=== PATIENT | female | born 1945 | race Caucasian/White ===

== ENCOUNTER 2021-06-30 18:20 | Emergency (ER) | payer MEDICARE ==
[2021-06-30] MEDS ORDERED: NA CHLORIDE 0.9% 500 ML ONE (19:35)
[2021-06-30 19:50] LABS: Urine Bacteria <20 /HPF (<20); Urine Mucus 1+ /HPF (NONE SEEN); Urine RBC <5 /HPF (NONE SEEN)
--- NOTE | 2021-06-30 19:54 | RAD REPORT ---
EXAM DESCRIPTION: Ayaan Single View06/30/2021 7:02 pm CLINICAL HISTORY: Confusion COMPARISON: 2013 FINDINGS: Medial right lung base hazy The remainder of the lungs appear clear. Heart is normal size IMPRESSION: Medial right base is hazy probably combination of epicardial fat and elevation right he midiaphragm. If patient has clinical symptoms to suggest an infiltrate then PA and lateral chest seri es would be recommended
--- NOTE | 2021-06-30 19:54 | RAD REPORT ---
EXAM DESCRIPTION: CT - Head C Spine Mpr Wo Con - 06/30/2021 7:33 pm CLINICAL HISTORY: Head and neck injury status post fall. Syncope COMPARISON: None. TECHNIQUE: Computed axial tomography of the head and cervical spine was obtained. Sagittal and coronal reconstruction was performed. All CT scans are performed using dose optimization technique as appropriate and may include automated exposure control or mA/KV adjustment according to patient size. FINDINGS: A 3 millimeter area of increased density abuts the right aspect of the anterior falx. The ventricles are normal in caliber. Fluid within the visualized sinuses and mastoids is not seen A cervical fracture is not visualized. No dislocation is noted. IMPRESSION: 3 millimeter area of increased density abutting the right aspect of the anterior falx hogan spicious for a very small subdural bleed. A cervical fracture is not visualized. Dr Maria of the emergency room notified at 7:47 p.m. on June 30, 2021
[2021-06-30 20:46] LABS: Absolute Lymphocytes (CBC) 1.6 K/uL (0.7-4.9); Hematocrit 40.9 % (36.0-45.0); Lymphocytes % 18.3 % (15.3-44.8); MPV 8.2 fL (7.6-11.3); RBC Red Blood Cell Count 4.38 M/uL (3.86-4.86)
[2021-06-30 21:09] LABS: ALT/SGPT 32 U/L (12-78); Albumin 4.2 g/dL (3.4-5.0); Alkaline Phosphatase 90 U/L (45-117); BUN Blood Urea Nitrogen 13 mg/dL (7-18); Bicarbonate 27 mmol/L (21-32); Bilirubin Total 0.4 mg/dL (0.2-1.0); Glucose Level 165 mg/dL (74-106); Protein, Total 7.6 g/dL (6.4-8.2); Sodium Level 136 mmol/L (136-145)
[2021-06-30 21:14] LABS: AST/SGOT 27 U/L (15-37); Bilirubin Direct < 0.1 mg/dL (0-0.2); Potassium 4.4 mmol/L (3.5-5.1)
[2021-06-30 21:27] LABS: SARS-COV-2 RT PCR NEGATIVE (NEGATIVE)
--- NOTE | 2021-06-30 22:01 | ER ---
Nurse's Notes [facility] Name: Evelin Rojas Age: 75 yrs Sex: Female : 1945 Arrival Date: 06/30/2021 Time: 18:25 Bed 2 Private MD: Diagnosis: Traumatic subdural hemorrhage with loss of consciousness of unspecified duration Presentation: 06/30 18:35 Chief complaint: EMS states: EMS states that family called after pt had syncope episode jh6 that was not witnessed. EMS states BS 176 en route and pt asking repetitive questions. Coronavirus screen: Client denies travel out of the [place] in the last 14 days. Ebola Screen: Patient denies exposure to infectious person. Patient denies travel to an Ebola-affected area in the 21 days before illness onset. Initial Sepsis Screen: Does the patient meet any 2 criteria? No. Patient's initial sepsis screen is negative. Does the patient have a suspected source of infection? No. Patient's initial sepsis screen is negative. Risk Assessment: Do you want to hurt yourself or someone else? Patient reports no desire to harm self or others. Onset of symptoms was June 30, 2021. 18:35 Method Of Arrival: EMS: [facility] 18:35 Acuity: NHI 2 6 Historical: - PMHx: 18:39 Diabetes mellitus; [facility] - Immunization history:: Adult Immunizations up to date. - Social history:: Smoking status: Patient reports the use of cigarette tobacco products. Screenin:43 Abuse screen: Denies threats or abuse. Nutritional screening: No deficits noted. [facility] Tuberculosis screening: No symptoms or risk factors identified. Fall Risk No secondary diagnosis (0 pts). IV access (20 points). Assessment: 18:40 General: Appears in no apparent distress. Behavior is calm, cooperative, repetitive [facility] questions, pt doesn't remember passing out or falling. pt having pain to rt rib area. no busing noted. . Pain: Complains of pain in right lateral posterior chest Pain currently is 5 out of 10 on a pain scale. Quality of pain is described as sharp, tender, Pain began suddenly, Is continuous, Aggravated by increased activity. Neuro: Level of Consciousness is awake, alert, repetitive questions. Full function Speech is normal, Facial symmetry appears normal, Pupils are PERRLA, Pupil Size: 3 Intact. 19:16 General: pt taken to CT. as6 Vital Signs: 18:35 BP 196 / 88; Pulse 83; Resp 20; Temp 98.4(O); Pulse Ox 97% on R/A; Weight 81.65 kg; jh6 Height 5 ft. 6 in. (167.64 cm); Pain 3/10; 20:29 BP 182 / 73; Pulse 88; Resp 18; Pulse Ox 100% on R/A; Pain 10/10; tw5 18:35 Body Mass Index 29.05 (81.65 kg, 167.64 cm) 6 ED Course: 18:25 Patient arrived in ED. 6 18:39 Triage completed. jh6 18:40 Arm band placed on Patient placed in an exam room, on a stretcher, on oxygen, on [facility] booster assembler, on pulse oximetry. 18:42 Jacob Rose MD is Attending Physician. [facility] 18:54 EKG done, by ED staff, reviewed by Jacob Rose MD. jh6 19:02 XRAY Chest (1 view) In Process Unspecified. EDMS 19:06 Attending Physician role handed off by Jacob Rose MD rn 19:06 Rinku Maria MD is Attending Physician. rn 19:13 Carlos Washington, JABARI is Primary Nurse. as6 19:33 CT Head C Spine In Process Unspecified. EDMS 20:26 Urine Culture Sent. tw5 20:27 Patient has correct armband on for positive identification. Placed in gown. Bed in low tw5 position. Call light in reach. Side rails up X2. Adult w/ patient. surgical clinical reviewer on. Pulse ox on. NIBP on. Door closed. Noise minimized. Moved to private room. Warm blanket given. Verbal reassurance given. Assisted with bedpan. Repositioned patient. Cleaned of incontinence. 20:27 Initial lab(s) drawn, by me, sent to lab. COVID swab sent to lab. Inserted saline lock: tw5 22 gauge in right hand, using aseptic technique. Blood collected. 20:28 Basic Metabolic Panel Sent. tw5 20:28 CBC with Diff Sent. tw5 20:28 COVID-19/FLU A+B (Document "Date of Onset" if Symptomatic) Sent. tw5 20:28 LFT's Sent. tw5 20:28 Troponin HS Sent. tw5 22:30 initiated a transfer with Kimberly from [facility]. 2 23:43 administrative approval given by Kimberly Friend/ patient has been accepted to [address] [place] bed 2247/ Dr. Montague accepted the patient in transfer/report to be called to [phone]. 07/01 00:44 No provider procedures requiring assistance completed. Patient transferred, IV remains tw5 in place. Administered Medications: 06/30 20:28 Drug: NS 0.9% 500 ml Route: IV; Rate: bolus; Site: right hand; tw5 07/01 00:45 Follow up: Response: No adverse reaction; IV Status: Completed infusion; IV Intake: tw5 500ml Intake: 00:45 IV: 500ml; Total: 500ml. Outcome: 06/30 22:00 ER care complete, transfer ordered by . rn 07/01 00:43 Transferred by ground EMS Transfer form completed. tw Transferred Note: Report called to Alexia. Bedside report given to EMS Condition: stable Instructed on the need for transfer. 00:44 Patient left the ED. tw Signatures: Dispatcher [employer] EDMS Jacob Rose MD MD kdr Nieto, Roman, MD MD rn [place], MyKena 2 Naomi Woods tw5 Carlos Washington, RN RN as6 Aide Pride RN RN jh6
--- NOTE | 2021-06-30 22:02 | EDPHYS ---
Physician Documentation [facility] Name: Evelin Rojas Age: 75 yrs Sex: Female : 1945 Arrival Date: 06/30/2021 Time: 18:25 Bed 2 Private MD: ED Physician Rinku Maria HPI: 06/30 18:55 This 75 yrs old Female presents to ER via EMS with complaints of Altered Mental Status. kdr 18:55 The patient presents with decreased responsiveness. Onset: The symptoms/episode kdr began/occurred suddenly, just prior to arrival. Possible causes: CVA or TIA, head injury, low blood sugar, unknown, This is the second syncopal episode the patient has had in about 2 months. Associated signs and symptoms: The patient has no apparent associated signs or symptoms. Current symptoms: In the emergency department the patient's symptoms Generalized weakness. Patient's baseline: Neuro: alert and fully oriented, Motor: no deficits, Ambulation: walks without assistance, Speech: normal for age. The patient has experienced a previous episode, approximately 2 months ago. The patient has not recently seen a physician. Patient's family states that she walked into her room at which time they heard a thud. When they went into her room she was laid out on the floor. She was moaning but otherwise not responsive. That lasted about a minute and a half. At that point she started to become more responsive. Her daughter states that it took her approximately 3 minutes or more before she was more less responsive but clearly not back to baseline. The patient does not have any recollection of the fall or if coming to the hospital via EMS. She does note that she came by ambulance to the hospital. She also knows that she is in [place] [facility]. Her only complaint currently is of low back pain which is chronic and not new or changed. Historical: - PMHx: 18:39 Diabetes mellitus; jh6 - Immunization history:: Adult Immunizations up to date. - Social history:: Smoking status: Patient reports the use of cigarette tobacco products. ROS: 18:55 Constitutional: Negative for fever, chills, and weight loss, Eyes: Negative for injury, kdr pain, redness, and discharge, ENT: Negative for injury, pain, and discharge, Neck: Negative for injury, pain, and swelling, Cardiovascular: Negative for chest pain, palpitations, and edema, Respiratory: Negative for shortness of breath, cough, wheezing, and pleuritic chest pain, Abdomen/GI: Negative for abdominal pain, nausea, vomiting, diarrhea, and constipation, Back: Negative for injury and pain, : Negative for injury, bleeding, discharge, and swelling, MS/Extremity: Negative for injury and deformity, Skin: Negative for injury, rash, and discoloration, Psych: Negative for depression, anxiety, suicide ideation, homicidal ideation, and hallucinations, Allergy/Immunology: Negative for hives, rash, and allergies, Endocrine: Negative for neck swelling, polydipsia, polyuria, polyphagia, and marked weight changes, Hematologic/Lymphatic: Negative for swollen nodes, abnormal bleeding, and unusual bruising. 18:55 Neuro: Positive for syncope, Negative for headache, numbness, seizure activity, speech changes, tinnitus, tremor, visual changes. Exam: 18:55 Constitutional: This is a well developed, well nourished patient who is awake, alert, kdr and in no acute distress. Head/Face: Normocephalic, atraumatic. Eyes: Pupils equal round and reactive to light, extra-ocular motions intact. Lids and lashes normal. Conjunctiva and sclera are non-icteric and not injected. Cornea within normal limits. Periorbital areas with no swelling, redness, or edema. Neck: Trachea midline, no thyromegaly or masses palpated, and no cervical lymphadenopathy. Supple, full range of motion without nuchal rigidity, or vertebral point tenderness. No Meningismus. Chest/axilla: Normal chest wall appearance and motion. Nontender with no deformity. No lesions are appreciated. Cardiovascular: Regular rate and rhythm with a normal S1 and S2. No gallops, murmurs, or rubs. Normal PMI, no JVD. No pulse deficits. Respiratory: Lungs have equal breath sounds bilaterally, clear to auscultation and percussion. No rales, rhonchi or wheezes noted. No increased work of breathing, no retractions or nasal flaring. Abdomen/GI: Soft, non-tender, with normal bowel sounds. No distension or tympany. No guarding or rebound. No evidence of tenderness throughout. Back: No spinal tenderness. No costovertebral tenderness. Full range of motion. Skin: Warm, dry with normal turgor. Normal color with no rashes, no lesions, and no evidence of cellulitis. Neuro: Awake and alert, GCS 15, oriented to person, place, time, and situation. Cranial nerves II-XII grossly intact. Motor strength 5/5 in all extremities. Sensory grossly intact. Cerebellar exam normal. Normal gait. Vital Signs: 18:35 BP 196 / 88; Pulse 83; Resp 20; Temp 98.4(O); Pulse Ox 97% on R/A; Weight 81.65 kg; jh6 Height 5 ft. 6 in. (167.64 cm); Pain 3/10; 20:29 BP 182 / 73; Pulse 88; Resp 18; Pulse Ox 100% on R/A; Pain 10/10; tw5 18:35 Body Mass Index 29.05 (81.65 kg, 167.64 cm) 6 MDM: 18:55 Data reviewed: vital signs, nurses notes, lab test result(s), radiologic studies. kdr Counseling: I had a detailed discussion with the patient and/or guardian regarding: the historical points, exam findings, and any diagnostic results supporting the discharge/admit diagnosis, lab results, radiology results. 19:06 Patient medically screened. rn 19:06 ED course: Signed out to me at shift change pending labs for syncope. . rn 19:24 ED course: Pt states feel ok right now, reports recent cough and congestion, no fever, rn no vomiting/diarrhea. NO blood in stool. Does not recall any of the events today. . 21:58 Differential Diagnosis: CVA, electrolyte abnormality, hypoglycemia, intracranial bleed, rn pneumonia, TIA, UTI, volume depletion. ED course: No acute findings to explain syncope, ct head does show small subdural, likely related to fall itself, will transfer to [facility] for subdural hematoma. . 03 18:43 Order name: Basic Metabolic Panel; Complete Time: 21:58 [facility] 06/30 18:43 Order name: CBC with Diff; Complete Time: 21:58 [facility] 06/30 18:43 Order name: LFT's; Complete Time: 21:58 kdr 06/30 18:43 Order name: Troponin HS; Complete Time: 21:58 [facility] 06/30 19:26 Order name: Urine Microscopic Only; Complete Time: 19:59 rn 06/30 19:26 Order name: COVID-19/FLU A+B (Document "Date of Onset" if Symptomatic); Complete Time: rn 21:58 06/30 18:43 Order name: XRAY Chest (1 view); Complete Time: 19:59 [facility] 06/30 18:43 Order name: EKG; Complete Time: 18:43 [facility] 06/30 18:43 Order name: Cardiac monitoring; Complete Time: 20:28 [facility] 06/30 18:43 Order name: EKG - Nurse/Tech; Complete Time: 19:30 [facility] 06/30 18:53 Order name: CT Head C Spine; Complete Time: 19:59 [facility] 06/30 19:51 Order name: Urine Culture [facility] 06/30 18:43 Order name: IV Saline Lock; Complete Time: 20:28 [facility] 06/30 18:43 Order name: Labs collected and sent; Complete Time: 20:28 [facility] 06/30 18:43 Order name: O2 Per Protocol; Complete Time: 19:15 [facility] 06/30 18:43 Order name: O2 Sat Monitoring; Complete Time: 19:15 [facility] 06/30 19:26 Order name: Urine Dipstick-Ancillary (obtain specimen); Complete Time: 19:40 rn Administered Medications: 20:28 Drug: NS 0.9% 500 ml Route: IV; Rate: bolus; Site: right hand; tw5 07/01 00:45 Follow up: Response: No adverse reaction; IV Status: Completed infusion; IV Intake: tw5 500ml Disposition Summary: 06/30/21 22:00 Transfer Ordered Transfer Location: [facility] rn Reason: Higher level of care rn Condition: Stable rn Problem: new rn Symptoms: have improved rn Accepting Physician: (07/01/21 00:44) tw5 Diagnosis - Traumatic subdural hemorrhage with loss of consciousness of unspecified duration rn Forms: - Medication Reconciliation Form rn - SBAR form rn Signatures: Dispatcher [employer] Jacob Corea MD MD kdr Nieto, Roman, MD MD rn Wood, Tiffany tw5 Aide Pride RN RN jh6 Corrections: (The following items were deleted from the chart) 06/30 19:17 18:43 Head Brain Wo Cont+CT.RAD.BRZ ordered. EDAL EDAL 07/01 00:44 06/30 22:00 Dr. rn tw5
[2021-07-01 02:10] VITALS: BP 182/73; O2SAT 100
[2021-07-01 02:11] VITALS: TEMP 98.4
--- NOTE | 2021-07-02 10:12 | EKG ---
Test Date: 2021-06-30 Test Time: 18:34:54 Production Operations Inspector: LENY MEASUREMENT RESULTS: Intervals: Rate: 78 W[place]: 172 QRSD: 138 QT: 450 QTc: 513 [place]: P: 76 W[place]: 172 QRS: 258 T: 57 INTERPRETIVE STATEMENTS: Normal sinus rhythm Right bundle branch block Possible Inferior infarct, age undetermined Abnormal ECG Compared to ECG 07/21/2013 10:34:01 No significant changes Electronically Signed On 07-02-21 10:11:42 CDT by Fredrick Omer
== END 2021-07-01 00:44 | disposition short-term general hospital (02) ==
LOC: ER 18:20
DX: S06.5X9A Traumatic subdural hemorrhage with loss of consciousness of unspecified duration, initial encounter (principal); M54.50 Low back pain, unspecified; W19.XXXA Unspecified fall, initial encounter; Z72.0 Tobacco use; Z20.822 Contact with and (suspected) exposure to COVID-19; E11.9 Type 2 diabetes mellitus without complications
CPT/HCPCS: 96361; 93005; 87088; 85025; 87086; 80048; 36415; 80076; 81015; 84484; 0240U; 70450; 72125; 71045; 96360; 99285; J7040

== ENCOUNTER 2021-08-28 11:34 | Emergency (ER) | payer OTHER ==
--- OUTSIDE RECORDS SUMMARY | 2021-08-28 11:37 | XMS REPORT | Continuity of Care Document ---
:1945 Author Organization [facility] t Address [address] [place] [address] Care Team Providers Name Role Phone Francisca GUZMAN Attending Clinician Unavailable Kylie OLIVERA Attending Clinician Unavailable PILO BARNES Admitting Clinician Unavailable Payers Payer Name Policy Type Policy Number Effective Date Expiration Date Camille MORENO MEDICARE [id number] 2021 00:00:00 Problems This patient has no known problems. Allergies, Adverse Reactions, Alerts Allergy Allergy Status Severity Reaction(s) Onset Inactive Treating Comm ents Source Name Type Date Date Clinician FLOXACIL Allergy Active NPI:118 LEANDRO 3-12 [id number] 00:00: 00 Medications This patient has no known medications. Vital Signs Vital Name Observation Time Observation Value Comments Source WEIGHT 2021-07-03 08:17:00 81.647 kg HEIGHT 2021-07-03 08:17:00 165.1 cm WEIGHT 2021-07-03 08:17:00 81.647 kg HEIGHT 2021-07-03 08:17:00 165.1 cm Procedures This patient has no known procedures. Encounters Start End Encounter Admission Attending Care Care Encounter Source Date/Time Date/Time Type Type Clinicians Facility Department ID 2021-07-01 2021-07-03 Inpatient ER ANA OLIEVRA Neurosurger [id number] [facility] 02:08:00 17:42:00 [facility] mcghee 2021-07-01 2021-07-01 Outpatient BCM DERIAN [id number] 2 [facility] 00:00:00 23:59:00 [facility] Test Description Test Time Test Comments Results Result Comments Source BLOOD CULTURE 2021-07-06 08:00:31 Test Item Value Reference Range Interpretation Comme nts CULTURE (BEAKER) (test code = 1095) No growth in 5 days BLOOD [id number] 08:00:31 Test Item Value Reference Range Interpretation Comments CULTURE (BEAKER) (test No growth in 5 days code = 1095) POCT-GLUCOSE [id number] 13:22:24 Test Item Value Reference Range Interpretation Comments POC-GLUCOSE METER 223 mg/dL 70-110 H : TESTED A T [facility] 6720 (BEAKER) (test code = [facility], 153) [id number]: Commercial Interior Designer/Techni elly ID = [id number] for Um eh, Akumbu POCT-GLUCOSE [id number] 08:39:05 Test Item Value Reference Range Interpretation Comments POC-GLUCOSE METER 199 mg/dL 70-110 H : TESTED A T [facility] 6720 (BEAKER) (test code = [facility], 153) [id number]: Commercial Interior Designer/Techni elly ID = [id number] for Um eh, Akumbu POCT-GLUCOSE [id number] 21:34:15 Test Item Value Reference Range Interpretation Comments POC-GLUCOSE METER 295 mg/dL 70-110 H : TESTED A T [facility] 6720 (BEAKER) (test code = [facility], 1538) 37664: Commercial Interior Designer/Techni elly ID = [id number] for DE NNIS, LISA POCT-GLUCOSE [id number] 18:33:41 Test Item Value Reference Range Interpretation Comments POC-GLUCOSE METER 239 mg/dL 70-110 H : TESTED A T [facility] 6720 (BEAKER) (test code = [facility], 1538) 58157: Commercial Interior Designer/Techni elly ID = [id number] for Bl ackwell, Leonel POCT-GLUCOSE [id number] 12:25:01 Test Item Value Reference Range Interpretation Comments POC-GLUCOSE METER 217 mg/dL 70-110 H : TESTED A T [facility] 6720 (BEAKER) (test code = [facility], 1538) [id number]: Commercial Interior Designer/Techni lely ID = [id number] for Bl ackwell, Leonel RAD, RIBS, UNILATERAL, MIN 2 VIEWS, [id number] 10:38:00Reason for exam:- >fall r/o fractureShould this be performed at the bedside?->Yes [facility] 1945 Sex: FFINAL REPORT EXAMINATION: RAD, RIBS, UNILATERAL, MIN 2 VIEWS, LEFT, RAD, RIBS, UNILATERAL, MIN 2 VIEWS, RIGHT. INDICATION: 75-year-old female status post fall. COMPARISON: Chest radiograph dated 07/01/2021. FINDINGS:The cardiac silhouette is normal in size. The thoracic vasculature is within normal limits. No evidence of consolidation. No pleural effusion. No pneumothorax.No evidence of acute displaced rib fracture. Mild degenerative changes of the bilateral shoulders. Osteopenia. Visualized soft tissues are unremarkable. IMPRESSION:No evidence of acute displaced rib fracture. If there is persistent clinical concern for an occult rib fracture, CT chest could be considered. Signed: Husam Cornejo MDRep[facility] Verified Date/Time: 07/02/2021 10:38:24 Reading Location: [address] Consult Reading Room RAD, RIBS, UNILATERAL, MIN 2 VIEWS, RIGHT 2021-07-02 10:38:00Reason for exam:->fall r/o fractureShould this be performed at the bedside?->Yes [facility] 1945 Sex: FFINAL REPORT EXAMINATION: RAD, RIBS, UNILATERAL, MIN 2 VIEWS, LEFT, RAD, RIBS, UNILATERAL, MIN 2 VIEWS, RIGHT. INDICATION: 75-year-old female status post fall. COMPARISON: Chest radiograph dated 07/01/2021. FINDINGS:The cardiac silhouette is normal in size. The thoracic vasculature is within normal limits. No evidence of consolidation. No pleural effusion. No pneumothorax.No evidence of acute displaced rib fracture. Mild degenerative changes of the bilateral shoulders. Osteopenia. Visualized soft tissues are unremarkable. IMPRESSION:No evidence of acute displaced rib fracture. If there is persistent clinical concern for an occult rib fracture, CT chest could be considered. Signed: Husam Cornejo [facility] Verified Date/Time: 07/02/2021 10:38:24 Reading Location: [address] Ortho Consult Reading Room POCT-GLUCOSE [id number] 08:58:51 Test Item Value Reference Range Interpretation Comments POC-GLUCOSE METER 184 mg/dL 70-110 H : TESTED A T [facility] 6720 (BEAKER) (test code = CHEL Leung [facility], 1538) 73701: Commercial Interior Designer/Techni elly ID = [id number] for Leonel Dietrich CBC W/PLT COUNT & AUTO [id number] 05:31:28 Test Item Value Reference Range Interpretation Comments WHITE BLOOD CELL COUNT 6.3 K/ L 3.5-10.5 (BEAKER) (test code = 775) RED BLOOD CELL COUNT 3.80 M/ L 3.93-5.22 L (BEAKER) (test code = 761) HEMOGLOBIN (BEAKER) 11.8 GM/DL 11.2-15.7 (test code = 410) HEMATOCRIT (BEAKER) 38.1 % 34.1-44.9 (test code = 411) MEAN CORPUSCULAR 100.3 fL 79.4-94.8 H Discordant result VOLUME (BEAKER) (test compar ed to previous code = 753) result. Clinica l correlation req uired MEAN CORPUSCULAR 31.1 pg 25.6-32.2 HEMOGLOBIN (BEAKER) (test code = 751) MEAN CORPUSCULAR 31.0 GM/DL 32.2-35.5 L HEMOGLOBIN CONC (BEAKER) (test code = 752) RED CELL DISTRIBUTION 13.4 % 11.7-14.4 WIDTH (BEAKER) (test code = 412) PLATELET COUNT 199 K/CU MM 150-450 (BEAKER) (test code = 756) MEAN PLATELET VOLUME 9.8 fL 9.4-12.3 (BEAKER) (test code = 754) NUCLEATED RED BLOOD 0 /100 WBC 0-0 CELLS (BEAKER) (test code = 413) NEUTROPHILS RELATIVE 47 % PERCENT (BEAKER) (test code = 429) LYMPHOCYTES RELATIVE 41 % PERCENT (BEAKER) (test code = 430) MONOCYTES RELATIVE 9 % PERCENT (BEAKER) (test code = 431) EOSINOPHILS RELATIVE 2 % PERCENT (BEAKER) (test code = 432) BASOPHILS RELATIVE 1 % PERCENT (BEAKER) (test code = 437) NEUTROPHILS ABSOLUTE 2.96 K/ L 1.56-6.13 COUNT (BEAKER) (test code = 670) LYMPHOCYTES ABSOLUTE 2.59 K/ L 1.18-3.74 COUNT (BEAKER) (test code = 414) MONOCYTES ABSOLUTE 0.54 K/ L 0.24-0.36 H COUNT (BEAKER) (test code = 415) EOSINOPHILS ABSOLUTE 0.14 K/ L 0.04-0.36 COUNT (BEAKER) (test code = 416) BASOPHILS ABSOLUTE 0.06 K/ L 0.01-0.08 COUNT (BEAKER) (test code = 417) IMMATURE 0 % 0-1 GRANULOCYTES-RELATIVE PERCENT (BEAKER) (test code = 2801) [id number] 05:15:20 Test Item Value Reference Range Interpretation Comments MAGNESIUM (BEAKER) (test code = 1.8 mg/dL 1.6-2.6 627) Commercial Interior Designer ID - DBBASIC METABOLIC [id number] 05:15:19 Test Item Value Reference Range Interpretation Comments SODIUM (BEAKER) 138 meq/L 136-145 (test code = 381) POTASSIUM (BEAKER) 3.6 meq/L 3.5-5.1 (test code = 379) CHLORIDE (BEAKER) 103 meq/L 98-107 (test code = 382) CO2 (BEAKER) (test 25 meq/L 22-29 code = 355) BLOOD UREA NITROGEN 13 mg/dL 7-21 (BEAKER) (test code = 354) CREATININE (BEAKER) 0.88 mg/dL 0.57-1.25 (test code = 358) GLUCOSE RANDOM 149 mg/dL 70-105 H (BEAKER) (test code = 652) CALCIUM (BEAKER) 8.8 mg/dL 8.4-10.2 (test code = 697) EGFR (BEAKER) (test 63 mL/min/1.73 ESTIMA KRISTY GFR IS code = 1092) sq m NOT ACCURATE CREATININE CLEARANCE IN PREDICTING GLOMERULAR FILTRATION RATE . ESTIMATED GFR I S NOT APPLICABLE FOR DIALYSIS PATIEN TS. Commercial Interior Designer ID - DBPOCT-GLUCOSE [id number] 21:35:54 Test Item Value Reference Range Interpretation Comments POC-GLUCOSE METER 246 mg/dL 70-110 H : TESTED A T [facility] 6720 (BEAKER) (test code = [facility], 1538) 42984: Commercial Interior Designer/Techni elly ID = [id number] for DE NATALYAROSALIND, LISA POCT-GLUCOSE [id number] 17:25:19 Test Item Value Reference Range Interpretation Comments POC-GLUCOSE METER 219 mg/dL 70-110 H : TESTED A T [facility] 6720 (BEAKER) (test code = [facility], 1538) 29601: Commercial Interior Designer/Techni elly ID = [id number] for Bl Leonel madison URINALYSIS W/ REFLEX URINE [id number] 15:09:45 Test Item Value Reference Range Interpretation Comments COLOR (BEAKER) (test code = 470) Yellow CLARITY (BEAKER) (test code = 469) Clear SPECIFIC GRAVITY UA (BEAKER) (test 1.015 1.001-1.035 code = 468) PH UA (BEAKER) (test code = 467) 7.0 5.0-8.0 PROTEIN UA (BEAKER) (test code = 10 mg/dL Negative A 464) GLUCOSE UA (BEAKER) (test code = Negative Negative 365) KETONES UA (BEAKER) (test code = Negative Negative 371) BILIRUBIN UA (BEAKER) (test code = Negative Negative 462) BLOOD UA (BEAKER) (test code = 461) Negative Negative NITRITE UA (BEAKER) (test code = Negative Negative 465) LEUKOCYTE ESTERASE UA (BEAKER) Negative Negative (test code = 466) UROBILINOGEN UA (BEAKER) (test code 0.2 mg/dL 0.2-1.0 = 463) RBC UA (BEAKER) (test code = 519) 1 /HPF WBC UA (BEAKER) (test code = 520) 1 /HPF BACTERIA (BEAKER) (test code = 517) None Seen MUCUS (BEAKER) (test code = 1574) Rare SQUAMOUS EPITHELIAL (BEAKER) (test < /HPF code = 516) CRYSTALS, URINE (BEAKER) (test code None Seen = 1521) SOURCE(BEAKER) (test code = 2795) Commercial Interior Designer ID - [auto]Commercial Interior Designer ID - techPOCT-GLUCOSE [id number] 13:18:17 Test Item Value Reference Range Interpretation Comments POC-GLUCOSE METER 178 mg/dL 70-110 H : TESTED A T [facility] 6720 (BEAKER) (test code = CHEL Leung [facility], 1538) 94038: Commercial Interior Designer/Techni elly ID = [id number] for Leonel Dietrich CT, BRAIN, WITHOUT [id number] 12:38:00Unlisted Reason for Exam - Click Yes and Enter Reason Below->YesUnlisted Reason for Exam->trauma [facility] : 1945 Sex: FFINAL REPORT CT Head without contrast CLINICAL HISTORY: Syncope, simple, normal neuro examtrauma TECHNIQUE: Contiguous axial CT images through the head without contrast. This exam was performed according to the departmental dose optimization program which includes automated exposure control, adjustment of the mA and/or kV according to the patient size, and/or use of an iterative reconstruction technique. COMPARISON: None FINDINGS: There is a 5 mm dome-shaped hyperdensityalong the right anterior falx in the interhemispheric fissure. This is indeterminate for an incidental meningioma versus a small subdural hemorrhage. There is no other evidence for intracranial hemorrhage or acute infarct. There is periventricular and subcortical white matter hypodensity which is nonspecific but compatible with chronic microvascular ischemic change. There are atherosclerotic calcifications of the intracranial circulation. There is generalized parenchymal volume loss without hydrocephalus, midline shift, or significant mass effect. The skull is intact. IMPRESSION: Right anterior para falcine 5 mm hyperdense lesion. The appearance is suggestive of a meningioma, but given the history of trauma, a small acute subdural hemorrhage cannot be excluded. Attention on close interval follow-up is recommended. Signed: Johana Ochoa [facility] Verified Date/Time: 07/01/2021 12:38:11 RAD, CHEST, 1 VIEW, NON [id number] 11:56:00Reason for exam:->feverShould this be performed at the bedside?->Yes[facility] : 1945 Sex: FFINAL REPORT EXAMINATION: RAD, CHEST, 1 VIEW, NON DEPT. INDICATION: 75-year-old female with fever. COMPARISON: None. FINDINGS:The cardiac silhouette is normal in size. Mildcalcification of the thoracic aorta. No evidence of consolidation. No pleural effusion. No pneumothorax. Moderate to severe degenerative changes of the bilateral shoulders with surgical anchors noted in the bilateral humeral heads. A thin, linear radiopaque structures overlies the right neck and upperchest wall, possibly a catheter. IMPRESSION:No evidence of pneumonia or other acute cardiopulmonary abnormality. Signed: Husam Cornejo MDReport Verified Date/Time: 07/01/2021 11:56:21 Reading Location:[facility] B1 [id number] Ortho Consult Reading Room POCT-GLUCOSE [id number] 08:23:26 Test Item Value Reference Range Interpretation Comments POC-GLUCOSE METER 173 mg/dL 70-110 H : TESTED A T [facility] 6720 (BEAKER) (test code = CHEL Leung [facility], 1538) 36851: Commercial Interior Designer/Techni elly ID = [id number] for Leonel madison RESPIRATORY PANEL [id number] 08:01:39 Test Item Value Reference Range Interpretation Comments HUMAN METAPNEUMOVIRUS Not detected Not detected, (BEAKER) (test code = 2683) Equivocal RHINOVIRUS (BEAKER) (test Not detected Not detected, code = 2684) Equivocal INFLUENZA A (BEAKER) (test Not detected Not detected, code = 2685) Equivocal INFLUENZA A (NO SUBTYPE) (test code = 3606) INFLUENZA A SUBTYPE H1 (BEAKER) (test code = 2686) INFLUENZA A SUBTYPE H3 (BEAKER) (test code = 2687) INFLUENZA A SUBTYPE H1-2009 (BEAKER) (test code = 3198) INFLUENZA B (BEAKER) (test Not detected Not detected, code = 2688) Equivocal RESPIRATORY SYNCYTIAL VIRUS Not detected Not detected, (BEAKER) (test code = 3199) Equivocal PARAINFLUENZA VIRUS 1 Not detected Not detected, (BEAKER) (test code = 2691) Equivocal PARAINFLUENZA VIRUS 2 Not detected Not detected, (BEAKER) (test code = 2692) Equivocal PARAINFLUENZA VIRUS 3 Not detected Not detected, (BEAKER) (test code = 2693) Equivocal PARAINFLUENZA VIRUS 4 Not detected Not detected, (BEAKER) (test code = 3200) Equivocal ADENOVIRUS (BEAKER) (test Not detected Not detected, code = 7911) Equivocal CORONAVIRUS 229E (BEAKER) Not detected Not detected, (test code = 3201) Equivocal CORONAVIRUS HKU1 (BEAKER) Not detected Not detected, (test code = 3202) Equivocal CORONAVIRUS NL63 (BEAKER) Not detected Not detected, (test code = 3203) Equivocal CORONAVIRUS OC43 (BEAKER) Not detected Not detected, (test code = 3204) Equivocal BORDETELLA PERTUSSIS Not detected Not detected, (BEAKER) (test code = 3205) Equivocal CHLAMYDOPHILA PNEUMONIAE Not detected Not detected, (BEAKER) (test code = 3206) Equivocal MYCOPLASMA PNEUMONIAE Not detected Not detected, (BEAKER) (test code = 3207) Equivocal Other viruses and bacteria not targeted by this PCR panel cannot be excluded; therefore clinical correlation and follow up of serology, culture results, and other molecular studies is required. The results are not intended to be used as the sole means for clinical diagnosis or patient management decisions. This sample was tested at the [facility] using the Direct Grid TechnologiesArray Respiratory Panel. It is FDA cleared and has been verified and approved by the [facility] for clinical use on nasopharyngeal swab specimens.The performance of the FilmArrayRP has not been established in individuals who received influenza vaccine. Recent administration ofa nasal influenza vaccine may cause false positive results for Influenza A and/orInfluenza B.URINALYSIS WITH MICROSCOPIC IF [id number] 07:46:30 Test Item Value Reference Range Interpretation Comments COLOR (BEAKER) (test code = 470) Light Yellow CLARITY (BEAKER) (test code = Clear 469) SPECIFIC GRAVITY UA (BEAKER) 1.009 1.001-1.035 (test code = 468) PH UA (BEAKER) (test code = 467) 7.0 5.0-8.0 PROTEIN UA (BEAKER) (test code = Negative Negative 464) GLUCOSE UA (BEAKER) (test code = Negative Negative 365) KETONES UA (BEAKER) (test code = Negative Negative 371) BILIRUBIN UA (BEAKER) (test code Negative Negative = 462) BLOOD UA (BEAKER) (test code = Negative Negative 461) NITRITE UA (BEAKER) (test code = Negative Negative 465) LEUKOCYTE ESTERASE UA (BEAKER) Negative Negative (test code = 466) UROBILINOGEN UA (BEAKER) (test 0.2 mg/dL 0.2-1.0 code = 463) SOURCE(BEAKER) (test code = 2795) Commercial Interior Designer ID - [auto]Commercial Interior Designer ID - techRS-COV2/RT-PCR ([facility]) 2021-07-01 07:30:51 Test Item Value Reference Range Interpretation Comments SARS-COV2/RT-PCR Negative Negative The SARS-Co V-2 target (test code = nucleic acids a re not [id number]) detected in thi s specimen. Negative result s do not preclude SARS-C oV-2 infection and s hould not be used as the tad e basis for patient managem ent decisions. Nega tive results must be combine d with clinical observ ations, patient history , and epidemiological information. A false negativ e result may occur if a spec imen is improperly santi ected, transported or handled. This SARS CoV-2 test is a rapid, real-tashi e RT-PCR test intended for th e qualitative detection of nu cleic acid from SARS-CoV-2 in a nasopharyngeal swab specimen collected from individuals suspected of CO VID-19 by their healthcar e provider. This test has been authorized by FDA under an EUA for use by authorized laboratories. This test is only authorized for the duration of the declaration that circumstances exist justifying the authorization of emergency use of in vitro diagnostic tests for detection and/or diagnosis of COVID-19 under Section 564(b)(1) of the Federal Food, Drug and Cosmetic Act, 21 U.S.C. 360bbb- 3(b)(1), unless the authorization is terminated or revoked sooner. Fact Sheet for Healthcare Providers: https://www.[employer]/Documents/Xpert%20Xpress%20SARS%20CoV-2/Fact%20Sheets/445-0385%20SARS-COV -2%20HEALTHCARE%20PROVIDERS%20FACT%20SHEET.pdf Fact Sheet for Healthcare Patients: https://www.[employer]/Documents/Xpert %20Xpress%20SARS%20CoV-2/Fact%20Sheets/302-3801%96HFKD-MTG-8%20PATIENT%20FACT%20 SHEET.pdfCREATINE KINASE (CK)2021-07-01 06:33:15 Test Item Value Reference Range Interpretation Comments CREATINE KINASE TOTAL (BEAKER) (test 173 U/L 29-200 code = 380) Commercial Interior Designer SARAH CODY MCOMPREHENSIVE METABOLIC [id number] 06:33:14 Test Item Value Reference Range Interpretation Comments TOTAL PROTEIN 6.6 gm/dL 6.0-8.3 (BEAKER) (test code = 770) ALBUMIN (BEAKER) 4.1 g/dL 3.5-5.0 (test code = 1145) ALKALINE PHOSPHATASE 65 U/L 40-150 (BEAKER) (test code = 346) BILIRUBIN TOTAL 0.4 mg/dL 0.2-1.2 (BEAKER) (test code = 377) SODIUM (BEAKER) (test 141 meq/L 136-145 code = 381) POTASSIUM (BEAKER) 3.9 meq/L 3.5-5.1 (test code = 379) CHLORIDE (BEAKER) 104 meq/L 98-107 (test code = 382) CO2 (BEAKER) (test 27 meq/L 22-29 code = 355) BLOOD UREA NITROGEN 10 mg/dL 7-21 (BEAKER) (test code = 354) CREATININE (BEAKER) 0.84 mg/dL 0.57-1.25 (test code = 358) GLUCOSE RANDOM 167 mg/dL 70-105 H (BEAKER) (test code = 652) CALCIUM (BEAKER) 9.3 mg/dL 8.4-10.2 (test code = 697) AST (SGOT) (BEAKER) 17 U/L 5-34 (test code = 353) ALT (SGPT) (BEAKER) 18 U/L 6-55 (test code = 347) EGFR (BEAKER) (test 66 mL/min/1.73 ESTIMA KRISTY GFR IS code = 1092) sq m NOT ACCURATE CREATININE CLEARANCE IN PREDICTING GLOMERULAR FILTRATION RATE . ESTIMATED GFR I S NOT APPLICABLE FOR DIALYSIS PATIEN TS. Commercial Interior Designer SARAH CODY [id number] 06:33:14 Test Item Value Reference Range Interpretation Comments MAGNESIUM (BEAKER) (test code = 1.8 mg/dL 1.6-2.6 627) Commercial Interior Designer SARAH WOLFA MHIGH SENSITIVITY TROPONIN [id number] 06:24:30 Test Item Value Reference Range Interpretation Comments HIGH SENSITIVITY 9 pg/ml See_Comment [Automated message] TROPONIN I (test code = The system which [id number]) generated this result transmitted ref erence range: <=17. Th e reference range was not used to interpr et this result as normal/abnormal . Commercial Interior Designer ID - GLO [place] PHYSICIAN GYNECOLOGIST STAT High Sensitivity Troponin-I results should be used in conjunction with other diagnostic information such as ECG, clinical observations and information, and patient symptoms to aid in the diagnosis of [place].PROTHROMBIN TIME/[id number] 06:09:43 Test Item Value Reference Range Interpretation Comments PROTIME (BEAKER) 13.0 seconds 11.9-14.2 (test code = 759) INR (BEAKER) (test 1.00 See_Comment [Automat ed message] code = 370) The system whic h generated this result transmitted ref erence range: <=5.90. The reference range was not used to int erpret this result as normal/abnormal . RECOMMENDED COUMADIN/WARFARIN INR THERAPY RANGESSTANDARD DOSE: 2.0 - 3.0 Includes: PROPHYLAXIS forvenous thrombosis, systemic embolization; TREATMENT for venous thrombosis and/or pulmonary embolus.HIGH RISK: Target INR is 2.5-3.5 for patients with mechanical heart valves.CBC W/PLT COUNT & AUTO DIFFERENTIAL 2021-07-01 05:58:17 Test Item Value Reference Range Interpretation Comments WHITE BLOOD CELL COUNT (BEAKER) 7.5 K/ L 3.5-10.5 (test code = 775) RED BLOOD CELL COUNT (BEAKER) 3.79 M/ L 3.93-5.22 L (test code = 761) HEMOGLOBIN (BEAKER) (test code = 11.9 GM/DL 11.2-15.7 410) HEMATOCRIT (BEAKER) (test code = 34.9 % 34.1-44.9 411) MEAN CORPUSCULAR VOLUME (BEAKER) 92.1 fL 79.4-94.8 (test code = 753) MEAN CORPUSCULAR HEMOGLOBIN 31.4 pg 25.6-32.2 (BEAKER) (test code = 751) MEAN CORPUSCULAR HEMOGLOBIN CONC 34.1 GM/DL 32.2-35.5 (BEAKER) (test code = 752) RED CELL DISTRIBUTION WIDTH 13.0 % 11.7-14.4 (BEAKER) (test code = 412) PLATELET COUNT (BEAKER) (test 197 K/CU MM 150-450 code = 756) MEAN PLATELET VOLUME (BEAKER) 9.8 fL 9.4-12.3 (test code = 754) NUCLEATED RED BLOOD CELLS 0 /100 WBC 0-0 (BEAKER) (test code = 413) NEUTROPHILS RELATIVE PERCENT 61 % (BEAKER) (test code = 429) LYMPHOCYTES RELATIVE PERCENT 29 % (BEAKER) (test code = 430) MONOCYTES RELATIVE PERCENT 8 % (BEAKER) (test code = 431) EOSINOPHILS RELATIVE PERCENT 1 % (BEAKER) (test code = 432) BASOPHILS RELATIVE PERCENT 1 % (BEAKER) (test code = 437) NEUTROPHILS ABSOLUTE COUNT 4.58 K/ L 1.56-6.13 (BEAKER) (test code = 670) LYMPHOCYTES ABSOLUTE COUNT 2.16 K/ L 1.18-3.74 (BEAKER) (test code = 414) MONOCYTES ABSOLUTE COUNT (BEAKER) 0.62 K/ L 0.24-0.36 H (test code = 415) EOSINOPHILS ABSOLUTE COUNT 0.07 K/ L 0.04-0.36 (BEAKER) (test code = 416) BASOPHILS ABSOLUTE COUNT (BEAKER) 0.04 K/ L 0.01-0.08 (test code = 417) IMMATURE GRANULOCYTES-RELATIVE 0 % 0-1 PERCENT (BEAKER) (test code = 5415)
[2021-08-28] MEDS ORDERED: MORPHINE 4 MG/ML SYR ONE ×2 (12:17→16:30)
[2021-08-28] MEDS ORDERED: ONDANSETRON 4 MG/2 ML VIAL ONE ×2 (12:18→16:30)
--- NOTE | 2021-08-28 14:04 | RAD REPORT ---
EXAM DESCRIPTION: RAD - Shoulder Left 2 View - 08/28/2021 1:54 pm CLINICAL HISTORY: fall Fall, trauma, pain COMPARISON: No comparisons FINDINGS: Mildly displaced fracture is seen of the proximal left humerus. No dislocation evident.
--- NOTE | 2021-08-28 14:05 | RAD REPORT ---
EXAM DESCRIPTION: RAD - Wrist Left 2 View - 08/28/2021 1:54 pm CLINICAL HISTORY: PAIN Pain COMPARISON: Wrist Left 3 View dated 09/12/2020 FINDINGS: Mildly impacted fracture of the distal radius is seen with probable intra-articular extens ion. Small ulnar styloid avulsion fracture. Moderate soft tissue swelling.
--- NOTE | 2021-08-28 15:33 | RAD REPORT ---
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 No acute fracture or disloc ation.
--- NOTE | 2021-08-28 15:45 | RAD REPORT ---
EXAM DESCRIPTION: CT - Spine Lumbar Wo Con - 08/28/2021 3:34 pm CLINICAL HISTORY: Radiculopathy. Back pain COMPARISON: LUMBAR SPINE W O CONTRAST dated 01/19/2013 TECHNIQUE: Axial noncontrast CT imaging of the lumbar spine was performed with coronal and sagittal re-formatted images. All CT scans are performed using dose optimization technique as appropriate and may include automated exposure control or mA/KV adjustment according to patient size. FINDINGS: Mild L1 compression deformity is seen which could be acute. There is 20% loss of vertebral body height without canal compromise. Paraspinal tissues are normal in thickness. No paraspinal abscess or hematoma seen. Moderate osteopenia. IMPRESSION: Mild L1 compression deformity could be acute. Loss of vertebral body height is estimated 20% without canal compromise present.
[2021-08-28] MEDS ORDERED: ONDANSETRON 4 MG (ODT) TAB ONE (16:51)
--- NOTE | 2021-08-28 16:56 | ER ---
Nurse's Notes [facility] Name: Evelin Rojas Age: 76 yrs Sex: Female : 1945 Arrival Date: 08/28/2021 Time: 11:42 Bed 13 Private MD: Diagnosis: Humeral Head Fracture;Distal Radius Fracture;L1 Fracture Presentation: 08/28 11:42 Chief complaint: Patient states: Pt was taking trash out and lost balance and fell onto vg1 Left shoulder; EMS states bruising to Left shoulder and an abrasion to Left knee; pt denies hitting head or LOC. Care prior to arrival: IV initiated. 20 GA, in the right hand. Mechanism of Injury: Fall from standing position. Trauma event details: Injury occurred in the [facility]. 11:42 Acuity: NHI 3 vg1 11:42 Method Of Arrival: EMS: [facility] vg1 11:48 Coronavirus screen: Vaccine status: Patient reports being unvaccinated. Client denies [facility] travel out of the [place] in the last 14 days. Ebola Screen: Patient negative for fever greater than or equal to 101.5 degrees Fahrenheit, and additional compatible Ebola Virus Disease symptoms. Ebola Screen: Patient denies exposure to infectious person. Patient denies travel to an Ebola-affected area in the 21 days before illness onset. Initial Sepsis Screen: Does the patient meet any 2 criteria? No. Patient's initial sepsis screen is negative. Does the patient have a suspected source of infection? No. Patient's initial sepsis screen is negative. Risk Assessment: Do you want to hurt yourself or someone else? Patient reports no desire to harm self or others. Onset of symptoms was August 28, 2021. Trauma Activation: Physician: ED Physician; Name: parish; Notified At: ; Arrived At: Physician: General Surgeon; Name: ; Notified At: ; Arrived At: Physician: Radiology; Name: ; Notified At: ; Arrived At: Physician: Respiratory; Name: ; Notified At: ; Arrived At: Physician: Lab; Name: ; Notified At: ; Arrived At: Historical: - Allergies: 11:47 Floxin; vg1 - Home Meds: 12:04 Metformin Oral [Active]; atorvastatin oral [Active]; levothyroxine oral [Active]; vg1 Hydrochlorothiazide Oral [Active]; montelukast oral [Active]; duloxetine oral [Active]; Alprazolam Oral [Active]; gabapentin oral [Active]; Aspirin Oral [Active]; - PMHx: 11:47 diabetes mellitus; neuropathy; Hypothyroidism; Hypercholesterolemia; Anxiety; vg1 - Immunization history: Last tetanus immunization: unknown. - Social history:: Smoking status: Patient reports the use of cigarette tobacco products, smokes one pack cigarettes per day. Screenin:42 Abuse screen: Denies threats or abuse. Nutritional screening: No deficits noted. vg1 Tuberculosis screening: No symptoms or risk factors identified. 11:49 Fall Risk Fall in past 12 months (25 points). No secondary diagnosis (0 pts). IV access vg1 (20 points). Ambulatory Aid- None/Bed Rest/Nurse Assist (0 pts). Gait- Normal/Bed Rest/Wheelchair (0 pts) Mental Status- Oriented to own ability (0 pts). Total Lucero Fall Scale indicates High Risk Score (45 or more points). Fall prevention measures have been instituted. Side Rails Up X 2 Placed Close to Nursing Station Family Present and informed to notify staff if the need to leave the bedside As available patient and family educated on Fall Prevention Program and Strategies. Primary Survey: 11:42 NO uncontrolled hemorrhage observed. Breathing/Chest: Spontaneous respiratory effort, vg1 equal unlabored respirations, breath sounds clear bilaterally, regular pattern, symmetrical chest rise and fall. Circulation: No external hemorrhage present. Regular and strong central pulse, skin warm/dry/normal color. Disability Client is alert. Exposure/Environment: A warming method has been applied: A warm blanket has been provided to the patient. 12:30 Reassessment Alertness and Airway: Awake and alert. The airway is patent. Breathing: vg1 Spontaneous respiratory effort, equal unlabored respirations, breath sounds clear bilaterally, regular pattern with symmetrical chest rise and fall. Circulation: No external hemorrhage noted. Regular and strong central pulse, skin warm/dry/normal color. Disability: Alert. Secondary Survey: 11:42 HEENT: No deficits noted. Gastrointestinal: No deficits noted. : No signs and/or vg1 symptoms were reported regarding the genitourinary system. Musculoskeletal: Circulation, motion, and sensation intact. Assessment: 11:42 General: Appears in no apparent distress. uncomfortable, Behavior is calm, cooperative. vg1 Pain: Complains of pain in Left shoulder, left arm, lower back and left knee Pain currently is 10 out of 10 on a pain scale. Pain began 1 hour ago. Neuro: Horan Agitation-Sedation Scale (RASS): 0 - Alert and Calm Level of Consciousness is awake, alert, obeys commands, Oriented to person, place, time, situation. EENT: No signs and/or symptoms were reported regarding the EENT system. Cardiovascular: Patient's skin is warm and dry. Respiratory: Airway is patent Respiratory effort is even, unlabored. GI: No signs and/or symptoms were reported involving the gastrointestinal system. : No signs and/or symptoms were reported regarding the genitourinary system. Derm: Skin is pink, warm \T\ dry. Wound noted left knee Bruising that is on Left shoulder. Musculoskeletal: Circulation, motion, and sensation intact. 12:40 Reassessment: Patient appears in no apparent distress at this time. Patient and/or vg1 family updated on plan of care and expected duration. Pain level reassessed. Patient is alert, oriented x 3, equal unlabored respirations, skin warm/dry/pink. Pain decreased to 7/10. 14:30 Reassessment: Patient appears in no apparent distress at this time. Patient and/or vg1 family updated on plan of care and expected duration. Pain level reassessed. Patient is alert, oriented x 3, equal unlabored respirations, skin warm/dry/pink. states lower back pain and left leg pain; provider notified. 15:30 Reassessment: Patient appears in no apparent distress at this time. Patient and/or vg1 family updated on plan of care and expected duration. Pain level reassessed. Patient is alert, oriented x 3, equal unlabored respirations, skin warm/dry/pink. pt c/o shoulder and lower back pain; provider notified. 16:52 Reassessment: Patient appears in no apparent distress at this time. Patient and/or vg1 family updated on plan of care and expected duration. Pain level reassessed. Patient is alert, oriented x 3, equal unlabored respirations, skin warm/dry/pink. Pt IV infiltrated; provider notified. Received VO from Titi ACOSTA to administer Morphine 4 mg IM x1 and Zofran 4 mg PO x1. Vital Signs: 11:42 BP 171 / 82; Pulse 85; Resp 16; Temp 98.3(O); Pulse Ox 98% on R/A; Weight 76.66 kg; vg1 Height 5 ft. 6 in. (167.64 cm); Pain 10/10; 12:30 BP 135 / 66; Pulse 80; Resp 17; Pulse Ox 97% on R/A; vg1 13:30 BP 148 / 68; Pulse 82; Resp 16; Pulse Ox 96% on R/A; vg1 14:30 BP 123 / 79; Pulse 88; Resp 16; Pulse Ox 96% on R/A; vg1 15:45 BP 139 / 58; Pulse 88; Resp 16; Pulse Ox 95% on R/A; vg1 16:30 BP 130 / 59; Pulse 80; Resp 17; Pulse Ox 96% on R/A; vg1 11:42 Body Mass Index 27.28 (76.66 kg, 167.64 cm) vg1 Harvard Coma Score: 11:42 Eye Response: spontaneous(4). Verbal Response: oriented(5). Motor Response: obeys vg1 commands(6). Total: 15. Trauma Score (Adult): 11:42 Eye Response: spontaneous(1); Verbal Response: oriented(1); Motor Response: obeys vg1 commands(2); Systolic BP: > 89 mm Hg(4); Respiratory Rate: 10 to 29 per min(4); Gabriel Score: 15; Trauma Score: 12 ED Course: 11:42 Patient arrived in ED. vg1 11:42 Chuck Walls PA is PHCP. jmm 11:42 Patient has correct armband on for positive identification. Bed in low position. Call vg1 light in reach. Side rails up X2. Adult w/ patient. 11:42 Patient maintains SpO2 saturation greater than 95% on room air. vg1 11:43 Marquis Paulino MD is Attending Physician. jmm 11:44 Triage completed. vg1 11:47 Arm band placed on. vg1 11:47 No provider procedures requiring assistance completed. Maintain EMS IV. Dressing vg1 intact. Good blood return noted. Gauge \T\ site: 20 Right Hang. 11:49 Thermoregulation: warm blanket given to patient. vg1 12:03 Geena Cabrera, RN is Primary Nurse. vg1 13:56 Shoulder Left (2 View) XRAY In Process Unspecified. EDMS 13:56 XRAY Wrist LEFT 2 view In Process Unspecified. EDMS 14:42 Orthoglass splint: Sugar tong splint applied on. mh5 15:23 Hip Left 2 View XRAY In Process Unspecified. EDMS 15:35 CT Lumbar Spine Wo Con In Process Unspecified. EDMS 16:40 IV discontinued, intact, bleeding controlled, No redness/swelling at site. Pressure vg1 dressing applied. 16:53 Ephraim Conn MD is Referral Physician. jmm Administered Medications: 12:16 Drug: Zofran (Ondansetron) 4 mg Route: IVP; Site: right hand; cortez 12:17 Follow up: Response: No adverse reaction cortez 12:57 Follow up: Response: No adverse reaction vg1 12:17 Drug: morphine 4 mg Route: IVP; Site: right hand; cortez 12:17 Follow up: Response: No adverse reaction cortez 12:57 Follow up: Response: No adverse reaction; Pain is decreased vg1 16:51 Not Given (Physician Discretion): morphine 4 mg IVP once; RASS on ADMIN: Combtv4, Very vg1 Agttd3, Agttd2, Rstlss1, AlertClm0, Drwsy-1, Lt Sdtn-2, Mod Sdtn-3, Dp Sdtn-4, UnArsble-5 16:51 Not Given (Physician Discretion): Zofran (Ondansetron) 4 mg IVP once; over 2 minutes vg1 16:52 Drug: Ondansetron 4 mg Route: PO; vg1 17:30 Follow up: Response: No adverse reaction; Marked relief of symptoms vg1 16:52 Drug: morphine 4 mg Route: IM; Site: right deltoid; vg1 17:31 Follow up: Response: No adverse reaction vg1 Outcome: 16:55 Discharge ordered by . humberto 17:30 Discharged to home via wheelchair, with family. vg1 17:30 Condition: good 17:30 Discharge instructions given to patient, family, Instructed on discharge instructions, follow up and referral plans. medication usage, Demonstrated understanding of instructions, follow-up care, medications, Prescriptions given X 2. 17:30 Patient's length of stay was not longer than 2 hours. vg1 17:30 Patient left the ED. vg1 Signatures: Dispatcher [employer] EDMS Chuck Walls PA PA jmm Martinez, Maria mh5 Geena Cabrera RN RN vg1 Stacey-TracierEstella RN RN cortez Corrections: (The following items were deleted from the chart) 16:53 16:52 Reassessment: Pt IV infiltrated; provider notified. Received VO from Titi ACOSTA vg1 to administer Morphine 4 mg IM x1 and Zofran 4 mg PO x1 vg1
--- NOTE | 2021-08-28 16:56 | EDPHYS ---
Physician Documentation [facility] Name: Evelin Rojas Age: 76 yrs Sex: Female : 1945 Arrival Date: 08/28/2021 Time: 11:42 Bed 13 Private MD: ED Physician Marquis Paulino HPI: 08/28 11:48 This 76 yrs old Female presents to ER via EMS with complaints of Fall Injury. jmm 11:48 Details of fall: The patient fell from an upright position. Onset: The symptoms/episode jmm began/occurred acutely, just prior to arrival. This is a 76-year-old female with history of diabetes mellitus, hypothyroidism, hyperlipidemia the presents emerged part with complaints of left shoulder pain, left wrist pain, lower back pain, and left hip pain which occurred after a fall which occurred just prior to arrival. Patient states she tripped while taking out the garbage landing on her left side. Denies hitting her head. Denies neck pain. Historical: - Allergies: 11:47 Floxin; vg1 - Home Meds: 12:04 Metformin Oral [Active]; atorvastatin oral [Active]; levothyroxine oral [Active]; vg1 Hydrochlorothiazide Oral [Active]; montelukast oral [Active]; duloxetine oral [Active]; Alprazolam Oral [Active]; gabapentin oral [Active]; Aspirin Oral [Active]; - PMHx: 11:47 diabetes mellitus; neuropathy; Hypothyroidism; Hypercholesterolemia; Anxiety; vg1 - Immunization history: Last tetanus immunization: unknown. - Social history:: Smoking status: Patient reports the use of cigarette tobacco products, smokes one pack cigarettes per day. ROS: 11:48 Constitutional: Negative for fever, chills, and weight loss, Cardiovascular: Negative jmm for chest pain, palpitations, and edema, Respiratory: Negative for shortness of breath, cough, wheezing, and pleuritic chest pain. 11:48 Back: Positive for pain with movement. 11:48 MS/extremity: Positive for injury or acute deformity, pain. 11:48 All other systems are negative. Exam: 11:48 Constitutional: This is a well developed, well nourished patient who is awake, alert, jmm and in no acute distress. Head/Face: atraumatic. Eyes: EOMI, no conjunctival erythema appreciated ENT: Moist Mucus Membranes Neck: Trachea midline, Supple Chest/axilla: Normal chest wall appearance and motion. Cardiovascular: Regular rate and rhythm. 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 Pain is appreciated to the left hip on flexion. Mild lumbar tenderness on palpation. 11:48 Skin: Appearance: Color: normal in color. 11:48 Neuro: Orientation: is normal, Mentation: is normal, Memory: is normal. 11:48 Psych: Behavior/mood is pleasant, cooperative. Vital Signs: 11:42 BP 171 / 82; Pulse 85; Resp 16; Temp 98.3(O); Pulse Ox 98% on R/A; Weight 76.66 kg; vg1 Height 5 ft. 6 in. (167.64 cm); Pain 10/10; 12:30 BP 135 / 66; Pulse 80; Resp 17; Pulse Ox 97% on R/A; vg1 13:30 BP 148 / 68; Pulse 82; Resp 16; Pulse Ox 96% on R/A; vg1 14:30 BP 123 / 79; Pulse 88; Resp 16; Pulse Ox 96% on R/A; vg1 15:45 BP 139 / 58; Pulse 88; Resp 16; Pulse Ox 95% on R/A; vg1 16:30 BP 130 / 59; Pulse 80; Resp 17; Pulse Ox 96% on R/A; vg1 11:42 Body Mass Index 27.28 (76.66 kg, 167.64 cm) vg1 [place] Coma Score: 11:42 Eye Response: spontaneous(4). Verbal Response: oriented(5). Motor Response: obeys vg1 commands(6). Total: 15. Trauma Score (Adult): 11:42 Eye Response: spontaneous(1); Verbal Response: oriented(1); Motor Response: obeys vg1 commands(2); Systolic BP: > 89 mm Hg(4); Respiratory Rate: 10 to 29 per min(4); [place] Score: 15; Trauma Score: 12 MDM: 11:48 Patient medically screened. [facility] 16:49 Data reviewed: vital signs, nurses notes. Counseling: I had a detailed discussion with [facility] the patient and/or guardian regarding: the historical points, exam findings, and any diagnostic results supporting the discharge/admit diagnosis, radiology results, the need for outpatient follow up, the need for further work-up and treatment in the hospital, the need to transfer to another facility, to return to the emergency department if symptoms worsen or persist or if there are any questions or concerns that arise at home. 08/28 11:54 Order name: Shoulder Left (2 View) XRAY; Complete Time: 14:05 [facility] 08/28 13:15 Order name: XRAY Wrist LEFT 2 view; Complete Time: 14:10 cortez 08/28 14:36 Order name: Hip Left 2 View XRAY; Complete Time: 15:49 [facility] 08/28 15:26 Order name: CT Lumbar Spine Wo Con; Complete Time: 15:49 em1 08/28 14:10 Order name: Sugar Tong Forearm Splint; Complete Time: 14:42 [facility] 08/28 14:10 Order name: Sling; Complete Time: 14:42 [facility] Administered Medications: 12:16 Drug: Zofran (Ondansetron) 4 mg Route: IVP; Site: right hand; cortez 12:17 Follow up: Response: No adverse reaction cortez 12:57 Follow up: Response: No adverse reaction vg1 12:17 Drug: morphine 4 mg Route: IVP; Site: right hand; cortez 12:17 Follow up: Response: No adverse reaction cortez 12:57 Follow up: Response: No adverse reaction; Pain is decreased vg1 16:51 Not Given (Physician Discretion): morphine 4 mg IVP once; RASS on ADMIN: Combtv4, Very vg1 Agttd3, Agttd2, Rstlss1, AlertClm0, Drwsy-1, Lt Sdtn-2, Mod Sdtn-3, Dp Sdtn-4, UnArsble-5 16:51 Not Given (Physician Discretion): Zofran (Ondansetron) 4 mg IVP once; over 2 minutes vg1 16:52 Drug: Ondansetron 4 mg Route: PO; vg1 17:30 Follow up: Response: No adverse reaction; Marked relief of symptoms vg1 16:52 Drug: morphine 4 mg Route: IM; Site: right deltoid; vg1 17:31 Follow up: Response: No adverse reaction vg1 Disposition Summary: 08/28/21 16:55 Discharge Ordered Location: Home [facility] Condition: Stable [facility] Diagnosis - Humeral Head Fracture [facility] - Distal Radius Fracture jm - L1 Fracture [facility] Followup: [facility] - With: Ephraim Conn MD - When: 2 - 3 days - Reason: Recheck today's complaints, Continuance of care, Re-evaluation by your physician Discharge Instructions: - Discharge Summary Sheet [facility] - Humerus Fracture Treated With Immobilization [facility] - Radial Fracture [facility] - Lumbar Spine Fracture [facility] Forms: - Medication Reconciliation Form [facility] - Thank You Letter [facility] - Antibiotic Education [facility] - Prescription Opioid Use [facility] Prescriptions: - orphenadrine citrate 100 mg Oral Tablet Sustained Release - take 1 tablet by ORAL route 2 times per day As needed; 20 tablet; Refills: 0, [facility] Product Selection Permitted - Tylenol-Codeine #3 300 mg-30 mg Oral - take 1 tablet by ORAL route every 4-6 hours; 20 tablet; Refills: 0, Product [facility] Selection Permitted Signatures: Dispatcher [employer] EDMS Marquis Paulino MD MD cha Mickail, Joel, PA PA Geena Thompson, RN RN vg1 Estella Concepcion RN RN cortez Corrections: (The following items were deleted from the chart) 15:31 14:35 Lumbar Spine 3 Views+[email or web address] ordered. EDND EDMS
[2021-08-28 22:13] VITALS: TEMP 98.3
[2021-08-28 22:20] VITALS: BP 130/59; O2SAT 96
== END 2021-08-28 17:30 | disposition home or self-care (01) ==
LOC: ER 11:34
PROC: 2W3DX1Z Immobilization of Left Lower Arm using Splint (ICD-10-PCS; principal; 2021-08-28)
DX: S42.202A Unspecified fracture of upper end of left humerus, initial encounter for closed fracture (principal); S52.502A Unspecified fracture of the lower end of left radius, initial encounter for closed fracture; S32.019A Unspecified fracture of first lumbar vertebra, initial encounter for closed fracture; W01.0XXA Fall on same level from slipping, tripping and stumbling without subsequent striking against object, initial encounter; E11.9 Type 2 diabetes mellitus without complications; E03.9 Hypothyroidism, unspecified; E78.00 Pure hypercholesterolemia, unspecified; F41.9 Anxiety disorder, unspecified; Z79.82 Long term (current) use of aspirin; Z88.8 Allergy status to other drugs, medicaments and biological substances; F17.210 Nicotine dependence, cigarettes, uncomplicated
CPT/HCPCS: 72131; 73502; 73030; 73100; 96375; 96372; 96374; 99284; 29125; J2405 ×2

== ENCOUNTER 2022-03-11 14:34 | Emergency (ER) | payer OTHER ==
--- OUTSIDE RECORDS SUMMARY | 2022-03-11 14:49 | XMS REPORT | Continuity of Care Document ---
:1945 Author Organization [facility] t Address [address] [place] [address] Care Team Providers Name Role Phone Husam Baldwin [place] Primary Care Physician ANDREAS LYLES Attending Clinician Unavailable Andreas Lyles MD Attending Clinician Doctor Unassigned, [place] Attending Clinician Unavailable COTY MONTAGUE Attending Clinician Unavailable VERITO CHEN Attending Clinician Unavailable Coty [place] MD Attending Clinician Verito Chen MD Attending Clinician Corinna Keyes MD Attending Clinician [phone] Carol Barillas Attending Clinician Jamel Toussaint Attending Clinician Rivera Iverson Attending Clinician Florencio Parsons Attending Clinician CORINNA KEYES Admitting Clinician Unavailable Payers Payer Name Policy Type Policy Number Effective Date Expiration Date Camille dubonwu JOSH/CLARA [id number] 2021 MEDICARE ADVANTAGE 00:00:00 ELSAMED MEDICARE [id number] 2021 00:00:00 Problems Condition Condition Condition Status Onset Resolution Last Treating Co mments Source Name Details Category Date Date Treatment Clinician Date Subdural Subdural Disease [facility] [address] [place] [address] ABDOMINAL ABDOMINAL Diagnosis Active 2014-042015-04-19 Memoria PAIN, PAIN, 2- 19:34:00 l DIARRHEA DIARRHEA 00:00: Gabriel n Active 00 04/19/2015 [facility] SENT BY SENT BY Diagnosis Active 2014-042015-04-10 Memoria PCP/ABDOMI PCP/ABDOMI 2-18 05:16:00 l NAL PAIN NAL PAIN 08:00: Gabriel n Active 00 04/08/2015 [facility] ABDOMINAL ABDOMINAL Diagnosis Active 2014-042016-07-05 Memoria PAIN PAIN 2- 15:34:00 l Active 00:00: [place] 04/03/2015 00 [facility] KNEE PAIN KNEE PAIN Diagnosis Active 2014-09-04 Memoria Active 09-04 16:15:00 l 09/04/2014 12:00: Gabriel n 00 [facility] No known No known Disease Unive rs active active ity of problems problems [facility] Anxiety Anxiety Problem Resolve 2015-04-23 M emoria (finding) (finding) d 05:01:54 l Resolved [place] Problem 04/23/2015 [facility] Diabetes Diabetes Problem Resolve 2015-04-23 Memoria mellitus mellitus d 05:01:54 l (disorder) (disorder) He r[place] Resolved Problem 04/23/2015 [facility] Diabetic Diabetic Problem Resolve 2015-04-23 Memoria neuropathy neuropathy d 05:01:54 l (disorder) (disorder) He rmann Resolved Problem 04/23/2015 [facility] Hyperthyro Hyperthyr Problem Resolve 2015-04-23 Memoria idism oidism d 05:01:54 l (disorder) (disorder) He rmann Resolved Problem 04/23/2015 [facility] Osteoarthr Osteoarth Problem Resolve 2015-04-23 Memoria itis ritis d 05:01:54 l (disorder) (disorder) He rmann Resolved Problem 04/23/2015 [facility] Cholestero Problem Resolve 2015-04-23 Memoria l Cholestero d 05:01:54 l (substance l Gabriel carmona ) (substance ) Resolved Problem 04/23/2015 [facility] Thyroid Thyroid Problem Resolve 2015-04-23 M emoria structure structure d 05:01:54 l (body (body Ancelmo structure) structure) Resolved Problem 04/23/2015 [facility] History of Past Illness Condition Condition Condition Status Onset Resolution Last Treating Co mments Source Name Details Category Date Date Treatment Clinician Date Discharge Discharge Problem 2014-042015-04-23 2015-04[facility]: Diagnosis: 2 05:01:54 05:01:54 l Diarrhea Diarrhea 06:00: Gabriel n 04/20/2015 00 04/23/2015 [facility] Discharge Discharge Problem 2014-042015-04-23 2015-04-23 Memoria Diagnosis: Diagnosis: 05:01:54 05:01:54 l Dehydratio Dehydratio 06:00: He rmann n n 00 04/20/2015 04/23/2015 [facility] Discharge Discharge Problem 2014-042015-04-11 2015-04-11 Memoria Diagnosis: Diagnosis: 06-09 05:59:29 05:59:29 l Abdominal Abdominal 06:00: Herm gina pain pain 00 04/08/2015 04/11/2015 [facility] Discharge Discharge Problem 2014-042015-04-06 2015-04-06 Memoria Diagnosis: Diagnosis: 2 01:44:41 01:44:41 l Acute Acute 06:00: Ancelmo diverticul diverticul 00 itis itis 04/03/2015 04/06/2015 [facility] Discharge Discharge Problem 2014-09-07 2014-09-07 Memoria Diagnosis: Diagnosis: 09-04 03:40:48 03:40:48 l Rib Rib 05:00: [place] contusion contusion 00 09/04/2014 09/07/2014 [facility] Discharge Discharge Problem 2014-09-07 2014-09-07 Memoria Diagnosis: Diagnosis: 09-04 03:40:48 03:40:48 l Left knee Left knee 05:00: Herm gina sprain sprain 00 09/04/2014 09/07/2014 [facility] Allergies, Adverse Reactions, Alerts Allergy Allergy Status Severity Reaction(s) Onset Inactive Treating Comm ents Source Name Type Date Date Clinician Ofloxaci Propensi Active Unknown - [place] [facility] ty to See comments 09-01 edness ity of adverse 00:00: [place] reaction 00 Medical s Branch OFLOXACI DRUG Active Unknown-Cmnt Un jennifer N INGREDI 09-01 ity of 00:00: [place] 00 Medical Branch FLOXACIL Allergy Active [facility] Medical [facility] Center FLOXACIL DRUG Active Unknown-Cmnt Un jennifer KARINE INGREDI -12 ity of 00:00: [address] Floxacil Propensi Active [facility] k[facility] ty to 07-01 [facility] adverse 00:00: Medical reaction 00 Center s NO KNOWN Drug Active Univers ALLERGIE Class ity of S [facility] Floxin Floxin Active Nurys Ag Social History Social Habit Start Date Stop Date Quantity Comments Source Exposure to 2022-02-13 2022-02-23 Not sure [facility] SARS-CoV-2 (event) 00:00:00 09:55:00 [facility] Alcohol intake 2022-02-23 2022-02-23 [facility] of 00:00:00 00:00:00 non-drinker [facility] (finding) [place] Cigarettes smoked 2021-07-01 2021-07-[address] [facility] current (pack per 00:00:00 00:00:00 Medical Center day) - Reported Cigarette 2021-07-01 2021-07-[address] [facility] pack-years 00:00:00 00:00:00 [facility] Center Tobacco use and 2021-07-01 2021-07-[address] [facility] exposure 00:00:00 00:00:00 [facility] Sex Assigned At [address] [facility] kes 00:00:00 00:00:00 Medical Center Smoking Status Start Date Stop Date Source Unknown if ever smoked [facility] [place] [facility] Never smoked tobacco [facility] Social History 2015-04-20 01:06:26 [facility] Medications Ordered Filled Start Stop Current Ordering Indication Dosage Frequency Signature Comments Components Source Medication Medication Date Date Medication? Clinician (SIG) Name Name aspirin 81 Yes 1{tbl} Take 1 Uni vers mg EC 5-18 tablet by ity of tablet 14:43: mouth [place] 45 every Medical morning. Branch aspirin 81 Yes 1{tbl} Take 1 Uni vers mg EC 5-18 tablet by ity of tablet 14:43: mouth [place] 45 every Medical morning. Branch aspirin 81 Yes 1{tbl} Take 1 Uni vers mg EC 5-18 tablet by ity of tablet 14:43: mouth [place] 45 every Medical morning. Branch aspirin 81 2021-0 Yes 1{tbl} Take 1 Uni vers mg EC 5-18 tablet by ity of tablet 14:43: mouth [place] 45 every Medical morning. Branch aspirin 81 2-0 Yes 1{tbl} Take 1 Uni vers mg EC 5-18 tablet by ity of tablet 14:43: mouth [place] 45 every Medical morning. Branch aspirin 81 2-0 Yes 1{tbl} Take 1 Uni vers mg EC 5-18 tablet by ity of tablet 14:43: mouth [place] 45 every Medical morning. Branch aspirin 81 2-0 Yes 1{tbl} Take 1 Uni vers mg EC 5-13 tablet by ity of tablet 09:50: mouth [place] 48 every Medical morning. Branch orphenadrin 2022-0 Yes TAKE 1 Univ ers e 100 mg SR 5-09 TABLET BY ity of tablet 00:00: MOUTH [place] 00 TWICE Medical DAILY Branch NEEDED orphenadrin 2022-0 Yes TAKE 1 Univ ers e 100 mg SR 5-09 TABLET BY ity of tablet 00:00: MOUTH [place] 00 TWICE Medical DAILY Branch NEEDED orphenadrin 2022-0 Yes TAKE 1 Univ ers e 100 mg SR 5-09 TABLET BY ity of tablet 00:00: MOUTH [place] 00 TWICE Medical DAILY Branch NEEDED orphenadrin 2022-0 Yes TAKE 1 Univ ers e 100 mg SR 5-09 TABLET BY ity of tablet 00:00: MOUTH [place] 00 TWICE Medical DAILY Branch NEEDED orphenadrin 2022-0 Yes TAKE 1 Univ ers e 100 mg SR 5-09 TABLET BY ity of tablet 00:00: MOUTH [place] 00 TWICE Medical DAILY Branch NEEDED orphenadrin 2022-0 Yes TAKE 1 Univ ers e 100 mg SR 5-09 TABLET BY ity of tablet 00:00: MOUTH [place] 00 TWICE Medical DAILY Branch NEEDED orphenadrin 2022-0 Yes TAKE 1 Univ ers e 100 mg SR 5-09 TABLET BY ity of tablet 00:00: MOUTH [place] 00 TWICE Medical DAILY Branch NEEDED levothyroxi 2022-0 Yes 150ug Take 150 U nivers ne 150 mcg 4-19 mcg by ity of tablet 00:00: mouth. [place] 00 Medical Branch levothyroxi 2022-0 Yes 150ug Take 150 U nivers ne 150 mcg 4-19 mcg by ity of tablet 00:00: mouth. [place] 00 Medical Branch levothyroxi 2-0 Yes 150ug Take 150 U nivers ne 150 mcg 4-19 mcg by ity of tablet 00:00: mouth. Medical Branch levothyroxi 2-0 Yes 150ug Take 150 U nivers ne 150 mcg 4-19 mcg by ity of tablet 00:00: mouth. Medical Branch levothyroxi 2-0 Yes 150ug Take 150 U nivers ne 150 mcg 4-19 mcg by ity of tablet 00:00: mouth. Medical Branch levothyroxi 2021-0 Yes 150ug Take 150 U nivers ne 150 mcg 4-19 mcg by ity of tablet 00:00: mouth. [place] [facility] levothyroxi 2-0 Yes 150ug Take 150 U nivers ne 150 mcg 4-19 mcg by ity of tablet 00:00: mouth. [place] [facility] ALPRAZolam 2-0 Yes TAKE 1 Unive rs 1 mg tablet 4-18 TABLET BY ity of 00:00: MOUTH 00 TWICE Medical DAILY Branch NEEDED ALPRAZolam 2-0 Yes TAKE 1 Unive rs 1 mg tablet 4-18 TABLET BY ity of 00:00: MOUTH 00 TWICE Medical DAILY Branch NEEDED ALPRAZolam 2-0 Yes TAKE 1 Unive rs 1 mg tablet 4-18 TABLET BY ity of 00:00: MOUTH [place] 00 TWICE Medical DAILY Branch NEEDED ALPRAZolam 2-0 Yes TAKE 1 Unive rs 1 mg tablet 4-18 TABLET BY ity of 00:00: MOUTH 00 TWICE Medical DAILY Branch NEEDED ALPRAZolam 2022-0 Yes TAKE 1 Unive rs 1 mg tablet 4-18 TABLET BY ity of 00:00: MOUTH 00 TWICE Medical DAILY Branch NEEDED ALPRAZolam 2-0 Yes TAKE 1 Unive rs 1 mg tablet 4-18 TABLET BY ity of 00:00: MOUTH 00 TWICE Medical DAILY Branch NEEDED ALPRAZolam 2-0 Yes TAKE 1 Unive rs 1 mg tablet 4-18 TABLET BY ity of 00:00: MOUTH 00 TWICE Medical DAILY Branch NEEDED glimepiride 2-0 Yes 4mg Take 4 mg U nivers 4 mg tablet 4-11 by mouth 2 it y of 00:00: (two) [place] 00 times Medical daily. Branch glimepiride 2022-0 Yes 4mg Take 4 mg U nivers 4 mg tablet 4-11 by mouth 2 it y of 00:00: (two) [place] 00 times Medical daily. Branch glimepiride 2022-0 Yes 4mg Take 4 mg U nivers 4 mg tablet 4-11 by mouth 2 it y of 00:00: (two) [place] 00 times Medical daily. Branch glimepiride 2022-0 Yes 4mg Take 4 mg U nivers 4 mg tablet 4-11 by mouth 2 it y of 00:00: (two) [place] 00 times Medical daily. Branch glimepiride 2022-0 Yes 4mg Take 4 mg U nivers 4 mg tablet 4-11 by mouth 2 it y of 00:00: (two) [place] 00 times Medical daily. Branch glimepiride 2022-0 Yes 4mg Take 4 mg U nivers 4 mg tablet 4-11 by mouth 2 it y of 00:00: (two) [place] 00 times Medical daily. Branch glimepiride 2022-0 Yes 4mg Take 4 mg U nivers 4 mg tablet 4-11 by mouth 2 it y of 00:00: (two) [place] 00 times Medical daily. Branch hydroCHLORO 2022-0 Yes 12.5mg Take 12.5 Univers thiazide 4-08 mg by ity of 12.5 mg 00:00: mouth [place] tablet 00 daily. Medical Branch DULoxetine 2022-0 Yes 30mg Take 30 mg U nivers 30 mg 4-08 by mouth ity of capsule 00:00: daily. 00 Medical Branch gabapentin 2022-0 Yes 300mg Take 300 Un jennifer 300 mg 4-08 mg by ity of capsule 00:00: mouth [place] 00 daily. Medical Branch hydroCHLORO 2022-0 Yes 12.5mg Take 12.5 Univers thiazide 4-08 mg by ity of 12.5 mg 00:00: mouth [place] tablet 00 daily. Medical Branch DULoxetine 2022-0 Yes 30mg Take 30 mg U nivers 30 mg 4-08 by mouth ity of capsule 00:00: daily. 00 Medical Branch gabapentin 2022-0 Yes 300mg Take 300 Un jennifer 300 mg 4-08 mg by ity of capsule 00:00: mouth [place] 00 daily. Medical Branch hydroCHLORO 2022-0 Yes 12.5mg Take 12.5 Univers thiazide 4-08 mg by ity of 12.5 mg 00:00: mouth [place] tablet 00 daily. Medical Branch DULoxetine 2022-0 Yes 30mg Take 30 mg U nivers 30 mg 4-08 by mouth ity of capsule 00:00: daily. Medical Branch gabapentin 2022-0 Yes 300mg Take 300 Un jennifer 300 mg 4-08 mg by ity of capsule 00:00: mouth [place] 00 daily. Medical Branch hydroCHLORO 2022-0 Yes 12.5mg Take 12.5 Univers thiazide 4-08 mg by ity of 12.5 mg 00:00: mouth [place] tablet 00 daily. Medical Branch DULoxetine 2022-0 Yes 30mg Take 30 mg U nivers 30 mg 4-08 by mouth ity of capsule 00:00: daily. Medical Branch gabapentin 2022-0 Yes 300mg Take 300 Un jennifer 300 mg 4-08 mg by ity of capsule 00:00: mouth [place] 00 daily. Medical Branch hydroCHLORO 2022-0 Yes 12.5mg Take 12.5 Univers thiazide 4-08 mg by ity of 12.5 mg 00:00: mouth [place] tablet 00 daily. Medical Branch DULoxetine 2022-0 Yes 30mg Take 30 mg U nivers 30 mg 4-08 by mouth ity of capsule 00:00: daily. Medical Branch gabapentin 2022-0 Yes 300mg Take 300 Un jennifer 300 mg 4-08 mg by ity of capsule 00:00: mouth [place] 00 daily. Medical Branch hydroCHLORO 2022-0 Yes 12.5mg Take 12.5 Univers thiazide 4-08 mg by ity of 12.5 mg 00:00: mouth [place] tablet 00 daily. Medical Branch DULoxetine 2022-0 Yes 30mg Take 30 mg U nivers 30 mg 4-08 by mouth ity of capsule 00:00: daily. Medical Branch gabapentin 2022-0 Yes 300mg Take 300 Un jennifer 300 mg 4-08 mg by ity of capsule 00:00: mouth [place] 00 daily. Medical Branch DULoxetine 2022-0 Yes 30mg Take 30 mg U nivers 30 mg 4-08 by mouth ity of capsule 00:00: daily. Medical Branch gabapentin 2022-0 Yes 300mg Take 300 Un ejnnifer 300 mg 4-08 mg by ity of capsule 00:00: mouth [place] 00 daily. Medical Branch hydroCHLORO 0 Yes 12.5mg Take 12.5 Univers thiazide 4-08 mg by ity of 12.5 mg 00:00: mouth [place] tablet 00 daily. Medical Branch atorvastati 0 Yes 10mg Take 10 mg Univers n 10 mg 4-06 by mouth ity of tablet 00:00: daily. [facility] Branch atorvastati 0 Yes 10mg Take 10 mg Univers n 10 mg 4-06 by mouth ity of tablet 00:00: daily. [facility] Branch atorvastati 0 Yes 10mg Take 10 mg Univers n 10 mg 4-06 by mouth ity of tablet 00:00: daily. [facility] atorvastati 0 Yes 10mg Take 10 mg Univers n 10 mg 4-06 by mouth ity of tablet 00:00: daily. [facility] atorvastati Yes 10mg Take 10 mg Univers n 10 mg 4-06 by mouth ity of tablet 00:00: daily. [facility] atorvastati 0 Yes 10mg Take 10 mg Univers n 10 mg 4-06 by mouth ity of tablet 00:00: daily. [facility] atorvastati 0 Yes 10mg Take 10 mg Univers n 10 mg 4-06 by mouth ity of tablet 00:00: daily. [facility] omega-3 0 Yes 1000mg Take 1,[address] fatty 3-14 mg by [facility]ukes acids-fish 17:42: mouth. Medic al oil (Fish 38 Center OiL) 340-1,000 mg Cap per capsule aspirin 81 0 Yes 1{tbl} QD Take [address] MG EC 3-14 tablet by [facility] tablet 17:42: mouth Medical 38 daily. [place] metFORMIN 0 Yes 1000mg Take 1,000 Univers 1,000 mg 1-24 mg by ity of tablet 00:00: mouth. [facility] metFORMIN 2021-0 Yes 1000mg Take 1,000 Univers 1,000 mg 1-24 mg by ity of tablet 00:00: mouth. [facility] metFORMIN 2021-0 Yes 1000mg Take 1,000 Univers 1,000 mg 1-24 mg by ity of tablet 00:00: mouth. [address] metFORMIN 2-0 Yes 1000mg Take 1,000 Univers 1,000 mg 1-24 mg by ity of tablet 00:00: mouth. [address] metFORMIN 2022-0 Yes 1000mg Take 1,000 Univers 1,000 mg 1-24 mg by ity of tablet 00:00: mouth. [address] metFORMIN 2022-0 Yes 1000mg Take 1,000 Univers 1,000 mg 1-24 mg by ity of tablet 00:00: mouth. [address] metFORMIN 2-0 Yes 1000mg Take 1,000 Univers 1,000 mg 1-24 mg by ity of tablet 00:00: mouth. [address] glimepiride 2021-0 Yes 4mg Q.5D Take [address] (AMARYL) 4 1-24 by mouth 2 [facility] es MG tablet 00:00: (two) Medical 00 times Center daily. hydroCHLORO 2021-0 Yes 12.5mg QD Take 12.[address] thiazide 1-24 mg by [facility]ukes (HYDRODIURI 00:00: mouth Medic al L) 12.5 MG 00 daily. [place] tablet levothyroxi 0 Yes 100ug QD Take [address] ne 1-24 mcg by Lukes (SYNTHROID, 00:00: mouth Medic al LEVOTHROID) 00 daily. [place] 100 MCG tablet metFORMIN 2021-0 Yes 1000mg Q.5D Take 1,[address] (GLUCOPHAGE 1-24 mg by [facility]ukes ) 1000 MG 00:00: mouth 2 Medic al tablet 00 (two) Center times daily. montelukast 2021-0 Yes 10mg QD Take [address] (SINGULAIR) 1-24 by mouth Luke s 10 mg 00:00: daily. Medical tablet 00 [place] DULoxetine 2021-0 Yes 30mg QD Take [address] (CYMBALTA) 1-24 by mouth Lukes 30 MG 00:00: daily. Medical capsule 00 [place] gabapentin 2021-0 Yes 300mg QD Take [address] (NEURONTIN) 1-24 mg by [facility]ukes 300 MG 00:00: mouth Medical capsule 00 daily. [place] ALPRAZolam 2021-0 Yes 1mg Take [address] (XANAX) 1 1-10 by mouth 2 Luke s MG tablet 00:00: (two) Medical 00 times Center daily as needed. atorvastati Yes 10mg QD Take [address] n (LIPITOR) 1-10 by mouth Luke s 10 MG 00:00: daily. Medical tablet 00 Center meclizine 2020-04 Yes 25mg Take [address] (ANTIVERT) 2-29 by mouth 2 [place] [facility] 25 mg 00:00: (two) Medical tablet 00 times Center daily as needed DIZZINESS. Sodium 2014-04 No 1,000 mL, Memori a Chloride 2-30 1000 l 0.154 06:58: ml/hr, Ancelmo MEQ/ML 00 Infuse Injectable Over: 1 Solution hr, Route: IV, 1,000, Drug form: INJ, ONCE, Priority: STAT, Dosing Weight 74.818 kg, Start date: 04/20/15 0:58:00, Duration: 1 doses or times, Stop date: 04/20/15 0:58:00 Sodium 2014-04 No 1,000 mL, Memori a Chloride 2-30 1000 l 0.154 06:58: ml/hr, [place] MEQ/ML 00 Infuse Injectable Over: 1 Solution hr, Route: IV, 1,000, Drug form: INJ, ONCE, Priority: STAT, Dosing Weight 74.818 kg, Start date: 04/20/15 0:58:00, Duration: 1 doses or times, Stop date: 04/20/15 0:58:00 Sodium 2014-04 No 1,000 mL, Memori a Chloride 2-30 1000 l 0.154 06:58: ml/hr, [place] MEQ/ML 00 Infuse Injectable Over: 1 Solution hr, Route: IV, 1,000, Drug form: INJ, ONCE, Priority: STAT, Dosing Weight 74.818 kg, Start date: 04/20/15 0:58:00, Duration: 1 doses or times, Stop date: 04/20/15 0:58:00 Saline 2014-04 No Notes: Memoria Flush 0.9% 2-30 (Same as: l 01:15: BD Ancel[place] 00 Posiflush) Saline 2014-04 No Notes: Memoria Flush 0.9% 2-30 (Same as: l 01:15: BD [place] 00 Posiflush) Saline 2014-04 No Notes: Memoria Flush 0.9% 2-30 (Same as: l 01:15: BD [place] Posiflush) Dicyclomine 2014-04 Yes 20 mg = 1 M emoria Hydrochlori 2-18 tab, PO, l de 20 MG 18:37: QID-Before Her mijares Oral Tablet 00 Meals, # [Bentyl] 28 tab, 0 Refill(s) Dicyclomine 2014-04 Yes 20 mg = 1 M emoria Hydrochlori 2-18 tab, PO, l de 20 MG 18:37: QID-Before Her mijares Oral Tablet 00 Meals, # [Bentyl] 28 tab, 0 Refill(s) Dicyclomine 2014-04 Yes 20 mg = 1 M emoria Hydrochlori 2-18 tab, PO, l de 20 MG 18:37: QID-Before Her mijares Oral Tablet 00 Meals, # [Bentyl] 28 tab, 0 Refill(s) Morphine 2014-04 No 4 mg, Memoria 2-18 Route: l 16:59: IVP, Drug Ancelmo 00 form: INJ, ONCE, Dosing Weight 74.545, kg, Priority: STAT, Start date: 04/08/15 10:59:00, Stop date: 04/08/15 10:59:00 Morphine 2014-04 No 4 mg, Memoria 2-18 Route: l 16:59: IVP, Drug Ancelmo 00 form: INJ, ONCE, Dosing Weight 74.545, kg, Priority: STAT, Start date: 04/08/15 10:59:00, Stop date: 04/08/15 10:59:00 Morphine 2014-04 No 4 mg, Memoria 2-18 Route: l 16:59: IVP, Drug [place] 00 form: INJ, ONCE, Dosing Weight 74.545, kg, Priority: STAT, Start date: 04/08/15 10:59:00, Stop date: 04/08/15 10:59:00 Bentyl 2014-04 No Notes: Memoria 2-18 (Same as: l 16:55: Bentyl) Ancelmo Bentyl 2014-04 No Notes: Memoria 2-18 (Same as: l 16:55: Bentyl) Ancelmo Bentyl 2014-04 No Notes: Memoria 2-18 (Same as: l 16:55: Bentyl) [place] 00 Zofran 2014- No 4 mg, Memoria 2-18 Route: l 16:50: IVP, Drug [place] 00 form: INJ, ONCE, Dosing Weight 74.545, kg, Priority: STAT, Start date: 04/08/15 10:50:00, Stop date: 04/08/15 10:50:00 Zofran 2014- No 4 mg, Memoria 2-18 Route: l 16:50: IVP, Drug [place] 00 form: INJ, ONCE, Dosing Weight 74.545, kg, Priority: STAT, Start date: 04/08/15 10:50:00, Stop date: 04/08/15 10:50:00 Zofran 2014- No 4 mg, Memoria 2-18 Route: l 16:50: IVP, Drug [place] 00 form: INJ, ONCE, Dosing Weight 74.545, kg, Priority: STAT, Start date: 04/08/15 10:50:00, Stop date: 04/08/15 10:50:00 Morphine 2014- No 4 mg, Memoria 2-18 Route: l 16:49: IVP, Drug Ancelmo 00 form: INJ, ONCE, Dosing Weight 74.545, kg, Priority: STAT, Start date: 04/08/15 10:49:00, Stop date: 04/08/15 10:49:00 Sodium 2014-1 No 1,000 mL, Memori a Chloride 2-18 1,000 l 0.154 16:49: ml/hr, [place] MEQ/ML 00 Infuse Injectable Over: 1 Solution hr, Route: IV, ONCE, Priority: STAT, Dosing Weight 74.545 kg, Start date: 04/08/15 10:49:00, Duration: 1 doses or times, Stop date: 04/08/15 10:49:00 Morphine 2014- No 4 mg, Memoria 2-18 Route: l 16:49: IVP, Drug [place] 00 form: INJ, ONCE, Dosing Weight 74.545, kg, Priority: STAT, Start date: 04/08/15 10:49:00, Stop date: 04/08/15 10:49:00 Sodium 2014- No 1,000 mL, Memori a Chloride 2-18 1,000 l 0.154 16:49: ml/hr, [place] MEQ/ML 00 Infuse Injectable Over: 1 Solution hr, Route: IV, ONCE, Priority: STAT, Dosing Weight 74.545 kg, Start date: 04/08/15 10:49:00, Duration: 1 doses or times, Stop date: 04/08/15 10:49:00 Morphine 2014-04 No 4 mg, Memoria 2-18 Route: l 16:49: IVP, Drug [place] 00 form: INJ, ONCE, Dosing Weight 74.545, kg, Priority: STAT, Start date: 04/08/15 10:49:00, Stop date: 04/08/15 10:49:00 Sodium 2014-04 No 1,000 mL, Memori a Chloride 2-18 1,000 l 0.154 16:49: ml/hr, [place] MEQ/ML 00 Infuse Injectable Over: 1 Solution hr, Route: IV, ONCE, Priority: STAT, Dosing Weight 74.545 kg, Start date: 04/08/15 10:49:00, Duration: 1 doses or times, Stop date: 04/08/15 10:49:00 Saline 2014-04 No Notes: Memoria Flush 0.9% 2-18 (Same as: l 14:50: BD [place]cel[place] 00 Posiflush) Saline 2014-04 No Notes: Memoria Flush 0.9% 2-18 (Same as: l 14:50: BD [place] 00 Posiflush) Saline 2014-04 No Notes: Memoria Flush 0.9% 2-18 (Same as: l 14:50: BD [place] 00 Posiflush) Ondansetron 2014-04 Yes 4 mg = 1 Me moria 4 MG 2-13 tab, PO, l Disintegrat 20:02: BID, PRN He rmann ing Tablet 00 Nausea and [Zofran] Vomiting, Dissolve tab under tongue, X 7 day, # 14 tab, 0 Refill(s) Ondansetron 2014-04 Yes 4 mg = 1 Me moria 4 MG 2-13 tab, PO, l Disintegrat 20:02: BID, PRN He rmann ing Tablet 00 Nausea and [Zofran] Vomiting, Dissolve tab under tongue, X 7 day, # 14 tab, 0 Refill(s) Ondansetron 2014-04 Yes 4 mg = 1 Me moria 4 MG 2-13 tab, PO, l Disintegrat 20:02: BID, PRN He rmann ing Tablet 00 Nausea and [Zofran] Vomiting, Dissolve tab under tongue, X 7 day, # 14 tab, 0 Refill(s) Amoxicillin 2014-04 Yes 875 mg = 1 Memoria 875 MG / 2-13 tab, PO, l Clavulanate 20:01: Q12H, X 10 Ancelmo 125 MG Oral 00 day, # 20 Tablet tab, 0 [Augmentin Refill(s) 875-mg] Amoxicillin 2014-04 Yes 875 mg = 1 Memoria 875 MG / 2-13 tab, PO, l Clavulanate 20:01: Q12H, X 10 [place] 125 MG Oral 00 day, # 20 Tablet tab, 0 [Augmentin Refill(s) 875-mg] Amoxicillin 2014-04 Yes 875 mg = 1 Memoria 875 MG / 2-13 tab, PO, l Clavulanate 20:01: Q12H, X 10 [place] 125 MG Oral 00 day, # 20 Tablet tab, 0 [Augmentin Refill(s) 875-mg] Saline 2014-04 No Notes: Memoria Flush 0.9% 2-13 (Same as: l 15:24: BD [place]cel[place] 00 Posiflush) Ondansetron 2014-04 No Notes: Isael yael 2-13 (Same as: l 15:24: Zofran) [place] 00 MEDICATION WASTE Product Size: 4 mg Product Wasted: ___ mg Saline 2014-04 No Notes: Memoria Flush 0.9% 2-13 (Same as: l 15:24: BD [place] 00 Posiflush) Ondansetron 2014-04 No Notes: Isael yael 2-13 (Same as: l 15:24: Zofran) Ancelmo 00 MEDICATION WASTE Product Size: 4 mg Product Wasted: ___ mg Saline 2014-04 No Notes: Memoria Flush 0.9% 2-13 (Same as: l 15:24: BD [place] 00 Posiflush) Ondansetron 2014-04 No Notes: Isael yael 2-13 (Same as: l 15:24: Zofran) [place] 00 MEDICATION WASTE Product Size: 4 mg Product Wasted: ___ mg tramadol Yes 50 mg = 1 Isael yael hydrochlori 5-16 tab, PO, l de 50 MG 21:26: Q4H, PRN Corrina nn Oral Tablet 00 pain, X 3 [Ultram] day, # 20 tab, 0 Refill(s) tramadol Yes 50 mg = 1 Isael yale hydrochlori 5-16 tab, PO, l de 50 MG 21:26: Q4H, PRN Corrina nn Oral Tablet 00 pain, X 3 [Ultram] day, # 20 tab, 0 Refill(s) tramadol Yes 50 mg = 1 Isael yael hydrochlori 5-16 tab, PO, l de 50 MG 21:26: Q4H, PRN Corrina nn Oral Tablet 00 pain, X 3 [Ultram] day, # 20 tab, 0 Refill(s) Vital Signs Vital Name Observation Time Observation Value Comments Source Systolic blood 2022-02-23 15:14:00 127 mm[Hg] [facility] 2022-02-23 15:14:00 69 mm[Hg] [facility] Heart rate 2022-02-23 15:14:00 97 /min [facility] Body height 2022-02-23 15:14:[address] [facility] Body weight 2022-02-23 15:14:[address] [facility] BMI 2022-02-23 15:14:00 27.92 kg/m2 [facility] Body height 2021-10-25 17:53:[address] [facility] Body weight 2021-10-25 17:53:[address] [facility] BMI 2021-10-25 17:53:00 27.92 kg/m2 [facility] HEIGHT 2021-07-03 08:17:00 165.1 cm WEIGHT 2021-07-03 08:17:00 81.647 kg HEIGHT 2021-07-03 08:17:00 165.1 cm WEIGHT 2021-07-03 08:17:00 81.647 kg HEIGHT 2021-07-03 08:17:00 165.1 cm WEIGHT 2021-07-03 08:17:00 81.647 kg Systolic blood 2021-07-03 12:10:00 125 mm[Hg] [facility] Diastolic blood 2021-07-03 12:10:00 60 mm[Hg] [facility] Heart rate 2021-07-03 12:10:00 72 /min [facility] Respiratory rate 2021-07-03 12:10:00 18 /min [facility] Oxygen saturation in 2021-07-03 12:10:00 95 /min [facility] Arterial blood by Medical Ce nter Pulse oximetry Body height 2021-07-03 08:17:00 165.1 cm [facility] Body weight 2021-07-03 08:17:00 81.647 kg [facility] BMI 2021-07-03 08:17:00 29.95 kg/m2 [facility] Body temperature 2021-07-03 08:00:[address] [facility] Temperature Oral (F) 2015-04-20 09:58:00 99.0 F [facility] Heart Rate 2015-04-20 09:58:00 [facility] Respitory Rate 2015-04-20 09:58:00 [facility] Systolic (mm Hg) 2015-04-20 09:58:00 Isael [facility] Diastolic (mm Hg) 2015-04-20 09:58:00 [facility] Respitory Rate 2015-04-20 09:00:00 [facility] [place] Heart Rate 2015-04-20 09:00:00 [facility] Systolic (mm Hg) 2015-04-20 09:00:00 Isael [facility] Diastolic (mm Hg) 2015-04-20 09:00:00 [facility] [place] Respitory Rate 2015-04-20 08:00:00 [facility] [place] Heart Rate 2015-04-20 08:00:00 [facility] Systolic (mm Hg) 2015-04-20 08:00:00 Isael [facility] Diastolic (mm Hg) 2015-04-20 08:00:00 [facility] [place] Height 2015-04-20 01:06:00 167.64 cm [facility] BMI Calculated 2015-04-20 01:06:00 [facility] [place] Weight 2015-04-20 01:06:00 [facility] Temperature Oral (F) 2015-04-20 01:06:00 99.1 F [facility] Systolic (mm Hg) 2015-04-08 18:50:00 Isael [facility] Diastolic (mm Hg) 2015-04-08 18:50:00 [facility] [place] Respitory Rate 2015-04-08 18:50:00 [facility] Heart Rate 2015-04-08 18:50:00 [facility] Systolic (mm Hg) 2015-04-08 16:50:00 Isael [facility] Diastolic (mm Hg) 2015-04-08 16:50:00 [facility] Heart Rate 2015-04-08 16:50:00 [facility] Respitory Rate 2015-04-08 16:50:00 [facility] Weight 2015-04-08 14:56:00 [facility] Height 2015-04-08 14:56:00 170.18 cm [facility] Temperature Oral (F) 2015-04-08 14:56:00 98.2 F [facility] BMI Calculated 2015-04-08 14:56:00 [facility] [place] Heart Rate 2015-04-08 14:56:00 [facility] Respitory Rate 2015-04-08 14:56:00 [facility] [place] Systolic (mm Hg) 2015-04-08 14:56:00 Isael [facility] [place] Diastolic (mm Hg) 2015-04-08 14:56:00 [facility] Temperature Oral (F) 2015-04-03 20:18:00 98.6 F [facility] Respitory Rate 2015-04-03 20:18:00 [facility] [place] Heart Rate 2015-04-03 20:18:00 [facility] Systolic (mm Hg) 2015-04-03 20:18:00 Isael [facility] [place] Diastolic (mm Hg) 2015-04-03 20:18:00 [facility] Respitory Rate 2015-04-03 19:00:00 [facility] [place] Systolic (mm Hg) 2015-04-03 19:00:00 Isael [facility] Diastolic (mm Hg) 2015-04-03 19:00:00 [facility] [place] Heart Rate 2015-04-03 19:00:00 [facility] Respitory Rate 2015-04-03 18:00:00 [facility] [place] Systolic (mm Hg) 2015-04-03 18:00:00 Isael [facility] Diastolic (mm Hg) 2015-04-03 18:00:00 [facility] [place] Heart Rate 2015-04-03 18:00:00 [facility] Weight 2015-04-03 15:20:00 [facility] BMI Calculated 2015-04-03 15:20:00 [facility] Height 2015-04-03 15:20:00 167.64 cm [facility] Temperature Oral (F) 2015-04-03 15:20:00 98.9 F [facility] Heart Rate 2014-09-04 22:06:00 [facility] Temperature Oral (F) 2014-09-04 22:06:00 98.1 F [facility] Systolic (mm Hg) 2014-09-04 22:06:00 Isael [facility] Diastolic (mm Hg) 2014-09-04 22:06:00 [facility] Respitory Rate 2014-09-04 22:06:00 [facility] [place] Weight 2014-09-04 19:23:00 [facility] BMI Calculated 2014-09-04 19:23:00 [facility] Height 2014-09-04 19:23:00 167.64 cm [facility] Respitory Rate 2014-09-04 19:23:00 [facility] Heart Rate 2014-09-04 19:23:00 [facility] Systolic (mm Hg) 2014-09-04 19:23:00 Isael [facility] Diastolic (mm Hg) 2014-09-04 19:23:00 [facility] [place] Procedures Procedure Date / Time Performing Clinician Source Performed HOME HEALTH - OTHER 2022-01-01 05:01:00 Doctor Unassigned, [facility] CONSENT/REFUSAL FOR 2021-09-01 14:37:56 Doctor Unassigned, [facility] DIAGNOSIS AND TREATMENT [facility] POCT-GLUCOSE METER 2021-07-03 13:10:[address] [facility] 2D ECHO W/ DOPPLER 2021-07-03 10:37:20 Butch [facility] (CW/PW/COLOR) Center POCT-GLUCOSE METER 2021-07-03 08:26:[address] [facility] POCT-GLUCOSE METER 2021-07-02 21:20:[address] [facility] POCT-GLUCOSE METER 2021-07-02 17:43:[address] [facility] POCT-GLUCOSE METER 2021-07-02 12:13:[address] [facility] XR RIBS 2 VIEWS MIN 2021-07-02 09:48:00 Butch [facility] UNILATERAL LEFT Center XR RIBS 2 VIEWS MIN 2021-07-02 09:46:00 Butch [facility] UNILATERAL RIGHT Center POCT-GLUCOSE METER 2021-07-02 08:47:[address] [facility] BASIC METABOLIC PANEL 2021-07-02 04:27:00 Wali [facility] [place] MAGNESIUM 2021-07-02 04:27:00 [facility] [place] CBC W/PLT COUNT & AUTO 2021-07-02 04:27:[address] [facility] DIFFERENTIAL [place] CBC W/PLT COUNT & AUTO 2021-07-02 04:27:[address] [facility] DIFFERENTIAL [place] POCT-GLUCOSE METER 2021-07-01 21:20:[address] [facility] POCT-GLUCOSE METER 2021-07-01 17:14:[address] [facility] URINALYSIS W/ REFLEX URINE 2021-07-01 14:50:00 Verito Chen [facility] CULTURE Center POCT-GLUCOSE METER 2021-07-01 13:07:[address] [facility] CT BRAIN WITHOUT IV 2021-07-01 12:23:00 Viola Wei [facility] CONTRAST Center XR CHEST 1 VIEW PORTABLE / 2021-07-01 10:21:00 Verito Chen [facility] BEDSIDE Center ECG 12-LEAD 2021-07-01 09:13:[address] [facility] POCT-GLUCOSE METER 2021-07-01 08:12:[address] [facility] RESPIRATORY PANEL 2021-07-01 06:18:00 Corinna Keyes [facility] [place] SARS-COV2/RT-PCR ([facility] & 2021-07-01 06:18:00 Corinna Keyes [facility]F LAB[facility]) [facility] WITH 2021-07-01 05:44:00 Corinna Keyes [facility] MICROSCOPIC IF INDICATED [facility] COMPREHENSIVE METABOLIC 2021-07-01 05:40:00 Corinna Keyes [facility] W/[facility] & AUTO 2021-07-01 05:40:00 Corinna Keyes [facility]ENTIAL [facility] PROT[facility] TIME/INR 2021-07-01 05:40:00 Corinna Keyes [facility] [place] MAGNESIUM 2021-07-01 05:40:00 [facility] HIGH SENSITIVITY TROPONIN 2021-07-01 05:40:00 Corinna Keyes [facility] CREATINE KINASE (CK) 2021-07-01 05:40:00 [facility] CBC W/PLT COUNT & AUTO 2021-07-01 05:40:00 Corinna Keyes [facility]ENTIAL [facility] BLOOD CULTURE 2021-07-01 05:37:00 [facility]na [facility] E[facility]-SCANNED 2021-07-01 00:00:00 Tanisha [facility] Cataract [facility] surgery<sup>1</sup> Cholecystectomy [facility] Tumor [facility] destruction<sup>2</sup> Plan of Care Planned Activity Planned Date Details Comments Source Future Scheduled 2027-05-17 DTAP/TDAP/TD VACCINES [facility] 00:00:00 (2 - Td or Tdap) [code Medic al Center = DTAP/TDAP/TD VACCINES (2 - Td or Tdap)] Future Scheduled 2021-12-21 INFLUENZA VACCINE (#1) [facility] 00:00:00 [code = INFLUENZA Medical Ce nter VACCINE (#1)] Future Scheduled 2021-04-[address] [facility] Test 00:00:00 (12+) [code = Medical Center DEPRESSION SCREENING (12+)] Future Scheduled 2021-04-22 FALLS RISK SCREENING [facility] Test 00:00:00 [code = FALLS RISK Medical C enter SCREENING] Future Scheduled 2021-04-22 Medicare IPPE (WELCOME [facility] 00:00:00 TO MEDICARE) [code = Medical Center Medicare IPPE (WELCOME TO MEDICARE)] Future Scheduled 1997-07-03 Screening for malignant [facility] Test 00:00:00 neoplasm of lung Medical [facility] (procedure) [code = 182458868] Future Scheduled 1997-07-03 SHINGLES VACCINES ([address] [facility] Test 00:00:00 2) [code = SHINGLES Medical Center VACCINES (1 of 2)] Future Scheduled 1965-07-03 HEPATITIS C SCREENING [facility] 00:00:00 [code = HEPATITIS C Medical Center SCREENING] Future Scheduled [address] [facility] Test 00:00:00 Counseling and Medical Cente r Screening (12+) [code = Tobacco Cessation Counseling and Screening (12+)] Future Scheduled 1948-01-04 COVID-19 VACCINE (#1) [facility] 00:00:00 [code = COVID-[address] VACCINE (#1)] Future Scheduled 1947 Screening for malignant [facility] Test 00:00:00 neoplasm of breast Medical C enter (procedure) [code = 427368434] Future Scheduled 1947 CT Colonography (combo) [facility] Test 00:00:00 [code = CT Colonography [facility] (combo)] Future Scheduled 1947 Screening for malignant [facility] Test 00:00:00 neoplasm of colon Medical Ce nter (procedure) [code = 787773687] Future Scheduled 1947 Screening for malignant [facility] Test 00:00:00 neoplasm of colon Medical Ce nter (procedure) [code = 237318715] Future Scheduled 1945 DXA SCAN [code = DXA [facility] Test 00:00:00 SCAN] [facility] Future Scheduled 1947 Screening for malignant [facility] Test 00:00:00 neoplasm of colon Medical Ce nter (procedure) [code = 018709204] Future Scheduled 1947 Screening for malignant [facility] Test 00:00:00 neoplasm of colon Medical Ce nter (procedure) [code = 615595453] Future Scheduled 1945 Sigmoidoscopy [code = [facility] Test 00:00:00 Sigmoidoscopy] [facility] Start End Encounter Admission Attending Care Care Encounter Source Date/Time Date/Time Type Type Clinicians Facility Department ID 2022-02-23 2022-02-23 Outpatient Madhu LYLES [facility] [id number] Univers 10:30:00 12:40:32 ANDREAS dial [facility] 2022-02-23 2022-02-23 [facility] [id number] Univers 10:30:00 12:40:32 Visit [facility] [id number] it y of [place] [id number] Adán as KEYON?BLEA [id number] [address] MEDICAL OFFICE BUILDING 2022-01-01 2022-01-01 Orders Doctor ALLISON [id number] Univers 00:00:00 00:00:00 Only Unassigned, SARA [id number] ity of [place] [facility] [id number] Adán as [id number] [place] [id number] Branch 2021-12-29 2021-12-29 [facility] [id number] Univers 10:35:00 10:50:00 [facility] 2021-12-29 2021-12-29 Telephone [facility] [id number] Univers 00:00:00 00:00:00 Andreas BIGGS [id number] it y of [place] [id number] Adán as KEYON?BLEA [id number] Sc katherine WOLF [address] [place] [address] OFFICE [facility] 2021-10-26 2021-10-26 Telephone [facility] [id number] Univers 00:00:00 00:00:00 Andreas BIGGS [id number] it y of [place] [id number] Adán as KEYON?BLEA [id number] Sc katherine WOLF [address] [place] [address] OFFICE [facility] 2021-10-25 2021-10-25 Office [facility] [id number] Univers 13:00:00 15:51:58 Visit Andreas BIGGS [id number] it y of [place] [id number] Adán as KEYON?BLEA [id number] Sc katherine WOLF [address] [place] [address] 2021-10-25 2021-10-25 [facility] [id number] Univers 13:00:00 15:51:58 [facility] 2021-10-25 2021-10-25 Outpatient Madhu [facility] [id number] Univers 12:55:00 13:22:00 ANDREAS yojana [facility] 2021-09-14 2021-09-14 Outpatient [facility] [id number] Univers 11:15:00 11:15:00 [facility] 2021-09-09 2021-09-09 Orders Doctor COOPER [id number] Univers 00:00:00 00:00:00 Only Unassigned, SARA [id number] ity of [place] [facility] [id number] Adán as [id number] [address] 2021-09-01 2021-09-01 Outpatient [facility] [id number] Univers 10:15:00 10:15:00 ANDREAS dial [facility] 2021-09-01 2021-09-01 Office [facility] [id number] Univers 10:15:00 10:15:00 Visit Andreas [facility] [id number] it [facility] [id number] Adán as KEYON?BLEA [id number] Sc dicmaty WOLF [address] [place] [address] OFFICE [facility] 2021-09-01 2021-09-01 Outpatient [facility] [id number] Univers 10:15:00 10:11:32 ANDREAS dial [facility] 2021-09-01 2021-09-01 Telephone [facility] [id number] Univers 00:00:00 00:00:00 Andreas [facility] [id number] it y of [place] [id number] Adán as KEYON?BLEA [id number] Sc dicmaty WOLF [address] [place] [address] OFFICE [facility] 2021-09-01 2021-09-01 Orders Doctor ALLISON [id number] Univers 00:00:00 00:00:00 Only Unassigned, SARA [id number] ity of [place] [facility] [id number] Adán as [id number] [address] 2021-07-01 2021-07-03 Inpatient ER ANA CHEN Neurosurger [id number] [facility] 02:08:00 17:42:00 VERITO mcghee 2021-07-01 2021-07-03 [facility] [facility] [id number] 02:08:00 17:42:00 Encounter Verito Chen [facility] 2021-07-01 2021-07-01 Outpatient [facility] [id number] [facility] 00:00:00 23:59:00 Joan 2021-07-01 2021-07-[address] [facility] [id number] [facility] 2015-04-20 2015-04-20 EC [facility] [id number] Memoria 00:26:00 10:04:00 Emergency r Ancelmo [address] [facility] 2015-04-20 2015-04-20 EC [facility] [id number] Memoria 00:26:00 10:04:00 Emergency r Ancelmo [address] [facility] 2015-04-19 2015-04-20 Outpatient Nargis, [facility] [id number] 18:26:00 04:04:00 Carol Saha 2015-04-08 2015-04-08 EC [facility] [id number] Memoria 14:42:00 18:53:00 Emergency r [place] [address] [facility] 2015-04-08 2015-04-08 EC [facility] [id number] Memoria 14:42:00 18:53:00 Emergency r [place] [address] [facility] 2015-04-08 2015-04-08 Outpatient Caros, [facility] [id number] 08:42:00 12:53:00 Jamel Jorge L 02 2015-04-03 2015-04-03 [facility] [id number] Memoria 15:16:00 21:06:00 Emergency r [place] [address] [facility] 2015-04-03 2015-04-03 EC [facility] [id number] Memoria 15:16:00 21:06:00 Emergency r Ancelmo [address] [facility] 2015-04-03 2015-04-03 Outpatient Rivera Iverson [facility] [id number] 09:16:00 15:06:00 Jagdish 01 2014-09-04 2014-09-04 [facility] [id number] Memoria 18:59:00 22:08:00 Emergency r Ancelmo [address] [facility] 2014-09-04 2014-09-04 EC [facility] [id number] Memoria 18:59:00 22:08:00 Emergency r [place] [address] [facility] 2014-09-04 2014-09-04 Outpatient Issa [id number] 13:59:00 17:08:00 Florencio [id number] Allison [id number] 01 Results Test Description Test Time Test Comments Results Result Comments Source Blood Culture - Routine (Left Venipuncture) 2021-07-06 08:00 :31 Test Item Value Reference Range Interpretation Comme nts Result (test code = 6463-4) [facility] [address] [facility] [id number] 08:00:31 Test Item Value Reference Range Interpretation Comments CULTURE (BEAKER) (test No growth in 5 days code = 1095) BLOOD [id number] 08:00:31 Test Item Value Reference Range Interpretation Comments CULTURE (BEAKER) (test No growth in 5 days code = 1095) 2D Echo W/Doppler(CW/PW/Color)2021-07-03 14:18:23Ejection FractionSLEH ECHO HEARTLAB MKCKESSON CPACHI [facility] [id number] 13:22:24 Test Item Value Reference Range Interpretation Comments POC-Glucose Meter (test 223 mg/dL 70-110 H : TE STED AT [facility] code = 1538) [address] [place] [address], 770 30: Online Content Developer/Techni elly ID = [id number] for Umeh, Akumbu Lab Interpretation (test Abnormal code = 85903-7) [facility] [id number] 13:22:24 Test Item Value Reference Range Interpretation Comments POC-GLUCOSE METER 223 mg/dL 70-110 H : [facility] (test code = [facility], 1538) 70291: Online Content Developer/Techni elly ID = [id number] for Um eh, Akumbu POCT-GLUCOSE [id number] 08:39:05 Test Item Value Reference Range Interpretation Comments POC-GLUCOSE METER 199 mg/dL 70-110 H : [facility] (test code = [facility], 1538) 44228: Online Content Developer/Techni elly ID = [id number] for Um eh, Akumbu POCT-GLUCOSE [id number] 21:34:15 Test Item Value Reference Range Interpretation Comments POC-GLUCOSE METER 295 mg/dL 70-110 H : TESTED A T [facility] 6720 (BEAKER) (test code = [facility], 1538) 60722: Online Content Developer/Techni elly ID = [id number] for DE NNROSALIND LISA POCT-GLUCOSE [id number] 18:33:41 Test Item Value Reference Range Interpretation Comments POC-GLUCOSE METER 239 mg/dL 70-110 H : TESTED A T [facility] 6720 (BEAKER) (test code = [facility], 1538) 62375: Online Content Developer/Techni elly ID = [id number] for Bl ackelsa, Leonel POCT-GLUCOSE [id number] 12:25:01 Test Item Value Reference Range Interpretation Comments POC-GLUCOSE METER 217 mg/dL 70-110 H : [facility] A T [facility] 67[facility] (test code = [facility], 1538) 51229: Online Content Developer/Techni elly ID = [id number] for Bl ackwell, Leonel RAD, RIBS, UNILATERAL, MIN 2 VIEWS, [id number] 10:38:00Reason for exam:- >fall r/o fractureShould this be performed at the bedside?->Yes [facility] 1945 Sex: FFINAL REPORT EXAMINATION: RAD, RIBS, UNILATERAL, MIN 2 VIEWS, LEFT, RAD, RIBS, UNILATERAL, MIN 2 VIEWS, RIGHT. INDICATION: 75-year-old female status post fall. COMPARISON: Chest radiograph dated 07/01/2021. FINDINGS:The cardiac silhouette is normal in size. The thoracic vasculature is within normal limits. No evidence of consolidation. No pleural effusion. No pneumothorax. No evidence of acute displaced rib fracture. Mild degenerative changes of the bilateral shoulders. Osteopenia. Visualized soft tissues are unremarkable. IMPRESSION:No evidence of acute displaced rib fracture. If there is persistent clinical concern for an occult rib fracture, CT chest could be considered. Signed: Husam Cornejo Verified Date/Time: 07/02/2021 10:38:24 Reading Location: [facility] B1 C013X Ortho Consult Reading Room RAD, RIBS, UNILATERAL, MIN 2 VIEWS, [id number] 10:38:00Reason for exam:->fall r/o fractureShould this be performed at the bedside?->[facility] : 1945 Sex: FFINAL REPORT EXAMINATION: RAD, RIBS, UNILATERAL, MIN 2 VIEWS, LEFT, RAD, RIBS, UNILATERAL, MIN 2 VIEWS, RIGHT. INDICATION: 75-year-old female status post fall. COMPARISON: Chest radiograph dated 07/01/2021. FINDINGS:The cardiac silhouette is normal in size. The thoracic vasculature is within normal limits. No evidence of consolidation. No pleural effusion. No pneumothorax. No evidence of acute displaced rib fracture. Mild degenerative changes of the bilateral shoulders. Osteopenia. Visualized soft tissues are unremarkable. IMPRESSION:No evidence of acute displaced rib fracture. If there is persistent clinical concern for an occult rib fracture, CT chest could be considered. Signed: Husam Cornejoort Verified Date/Time: 07/02/2021 10:38:24 Reading Location: [facility] B1 C013X Ortho Consult Reading Room POCT-GLUCOSE [id number] 08:58:51 Test Item Value Reference Range Interpretation Comments POC-GLUCOSE METER 184 mg/dL 70-110 H : TESTED A T [facility] 6720 (BEAKER) (test code = [facility] [place], 1538) 52046: Online Content Developer/Techni elly ID = [id number] for Bl Leonel madison CBC with platelet count + automated [id number] 05:31:28 Test Item Value Reference Range Interpretation Comments WBC (test code = 6690-2) 6.3 See_Comment [A utomated message] The system [employer] generated this result transmitted ref erence range: 3.5 - 10 .5 K/L. The refe rence range was not u sed to interpret this result as normal/abnor mal. RBC (test code = 789-8) 3.80 See_Comment L [Au tomated message] The system [employer] generated this result transmitted ref erence range: 3.93 - 5 .22 M/L. The refe rence range was not u sed to interpret this result as normal/abnor mal. MCHC (test code = 786-4) 31.0 See_Comment L [A utomated message] The system [employer] generated this result transmitted ref erence range: 32.2 - 3 5.5 GM/DL. The refe rence range was not u sed to interpret this result as normal/abnor mal. Hematocrit (test code = 38.1 % 34.1-44.9 4544-3) MCV (test code = 787-2) 100.3 fL 79.4-94.8 H Disc ordant result compared to pre vious result. Clinica l correlation req uired MCH (test code = 785-6) 31.1 pg 25.6-32.2 RDW (test code = 788-0) 13.4 % 11.7-14.4 Platelets (test code = 199 See_Comment [Aut omated message] 777-3) The system [employer] generated this result transmitted ref erence range: 150 - 45 0 K/CU MM. The referen ce range was not u sed to interpret this result as normal/abnor mal. MPV (test code = 9.8 fL 9.4-12.3 46457-9) nRBC (test code = 413) 0 See_Comment [Aut omated message] The system [employer] generated this result transmitted ref erence range: 0 - 0 /1 00 WBC. The refere nce range was not u sed to interpret this result as normal/abnor mal. % Neutros (test code = 47 % 429) % Lymphs (test code = 41 % 430) % Monos (test code = 9 % 431) % Eos (test code = 432) 2 % % Baso (test code = 437) 1 % # Neutros (test code = 2.96 See_Comment [Aut omated message] 670) The system [employer] generated this result transmitted ref erence range: 1.56 - 6 .13 K/L. The refe rence range was not u sed to interpret this result as normal/abnor mal. # Lymphs (test code = 2.59 See_Comment [Auto mated message] 414) The system [employer] generated this result transmitted ref erence range: 1.18 - 3 .74 K/L. The refe rence range was not u sed to interpret this result as normal/abnor mal. # Monos (test code = 0.54 See_Comment H [Autom ated message] 415) The system [employer] generated this result transmitted ref erence range: 0.24 - 0 .36 K/L. The refe rence range was not u sed to interpret this result as normal/abnor mal. # Eos (test code = 416) 0.14 See_Comment [Au tomated message] The system [employer] generated this result transmitted ref erence range: 0.04 - 0 .36 K/L. The refe rence range was not u sed to interpret this result as normal/abnor mal. # Baso (test code = 417) 0.06 See_Comment [A utomated message] The system [employer] generated this result transmitted ref erence range: 0.01 - 0 .08 K/L. The refe rence range was not u sed to interpret this result as normal/abnor mal. Immature 0 % 0-1 Granulocytes-Relative (test code = 2801) Lab Interpretation (test Abnormal code = 59568-6) [facility] W/PLT COUNT & AUTO [id number] 05:31:28 Test Item Value Reference Range Interpretation [...] GRANULOCYTES-RELATIVE PERCENT (BEAKER) (test code = 2801) [id number] 05:15:20 Test Item Value Reference Range Interpretation Comments Magnesium (test code = 1.8 mg/dL 1.6-2.6 05286-4) TUTU (test code = TUTU) Online Content Developer ID - DB Lab Interpretation (test Normal code = 03186-6) [facility]:15[facility]20 Test Item Value Reference Range Interpretation Comments MAGNESIUM (BEAKER) (test code = 1.8 mg/dL 1.6-2.6 627) Online Content Developer ID - DBBasic metabolic [id number] 05:15:19 Test Item Value Reference Range Interpretation Comments Sodium (test code = 138 meq/L 770-674 4804-2) Potassium (test code = 3.6 meq/L 3.5-5.1 2823-3) Chloride (test code = 103 meq/L 98-107 2075-0) CO2 (test code = 25 meq/L 22-29 2028-9) BUN (test code = 13 mg/dL 7-21 3094-0) Creatinine (test code 0.88 mg/dL 0.57-1.25 = 2160-0) Glucose (test code = 149 mg/dL 70-105 H 2345-7) Calcium (test code = 8.8 mg/dL 8.4-10.2 39488-9) EGFR (test code = 63 mL/min/1.[place] [address]-2) NOT ACCURATE CREATININE CLEARANCE IN PREDICTING GLOMERULAR FILTRATION RATE . ESTIMATED GFR I S NOT APPLICABLE FOR DIALYSIS PATIENTS. TUTU (test code = TUTU) Online Content Developer ID - DB Lab Interpretation Abnormal (test code = 65200-3) [facility] METABOLIC [id number] 05:15:19 Test Item Value Reference Range Interpretation [...] 697) EGFR (BEAKER) (test 63 mL/min/1.73 ESTIMA MELE GFR IS code = 1092) sq m NOT ACCURATE CREATININE CLEARANCE IN PREDICTING GLOMERULAR FILTRATION RATE . ESTIMATED GFR I S NOT APPLICABLE FOR DIALYSIS PATIEN TS. Online Content Developer ID - DBPOCT-GLUCOSE [id number] 21:35:54 Test Item Value Reference Range Interpretation Comments POC-GLUCOSE METER 246 mg/dL 70-110 H : TESTED A T [facility] 6720 (hopTo) (test code = [facility], 1538) 36339: Online Content Developer/Techni elly ID = [id number] for DE NNIS, LISA POCT-GLUCOSE [id number] 17:25:19 Test Item Value Reference Range Interpretation Comments POC-GLUCOSE METER 219 mg/dL 70-110 H : TESTED A T [facility] 6720 (BEAKER) (test code = [facility] [employer] [facility], 1538) 89759: Online Content Developer/Techni elly ID = [id number] for Bl paulinajovannaelsa Leonel Urinalysis w/Microscopic + Reflex to [id number] 15:09:45 Test Item Value Reference Range Interpretation Comments Color, UA (test code Yellow = 5778-6) Clarity, UA (test Clear code = 5767-9) Specific [place], UA 1.015 1.001-1.035 (test code = 5811-5) pH, UA (test code = 7.0 5.0-8.0 5803-2) Protein, UA (test 10 mg/dL Negative A code = 12174-3) Glucose, UA (test Negative Negative code = 365) Ketones, UA (test Negative Negative code = 2514-8) Bilirubin, UA (test Negative Negative code = 37962-2) Blood, UA (test code Negative Negative = 64749-3) Nitrite, UA (test Negative Negative code = 5802-4) Leukocytes, UA (test Negative Negative code = 5799-2) Urobilinogen, UA 0.2 mg/dL 0.2-1.0 (test code = 83765-6) RBC, UA (test code = 1 See_Comment [Autom ated 08244-7) message] The system which generated this result transmit mele reference range : /HPF. The reference range was not used to interpret this result as normal/abnormal . WBC, UA (test code = 1 See_Comment [Autom ated 5821-4) message] The system which generated this result transmit mele reference range : /HPF. The reference range was not used to interpret this result as normal/abnormal . Bacteria, UA (test None Seen code = 96763-9) Mucus (test code = Rare 8247-9) Squam Epithel, UA <1 See_Comment [Automate d (test code = 20008-8) messag e] The system which generated this result transmit mele reference range : /HPF. The reference range was not used to interpret this result as normal/abnormal . Crystals, Urine (test None Seen code = 99888-8) Specimen Source (test code = 2795) TUTU (test code = TUTU) Online Content Developer ID - [auto]Online Content Developer ID - tech Lab Interpretation Abnormal (test code = 39557-1) [facility]FLEX URINE [id number] 15:09:45 Test Item Value Reference Range Interpretation [...] = 1521) SOURCE(BEAKER) (test code = 2795) Online Content Developer ID - [auto]Online Content Developer ID - techPOCT-GLUCOSE [id number] 13:18:17 Test Item Value Reference Range Interpretation Comments POC-GLUCOSE METER 178 mg/dL 70-110 H : TESTED A T [facility] 6720 (BEAKER) (test code = [facility] [place], 1538) 58726: Online Content Developer/Techni elly ID = [id number] for Leonel Dietrich CT, BRAIN, WITHOUT [id number] 12:38:00Unlisted Reason for Exam - Click Yes and Enter Reason Below->YesUnlisted Reason for Exam->trauma [facility] : 1945 Sex: FFINAL REPORT CT [...] FINDINGS: There is a 5 mm dome-shaped hyperdensity along the right anterior falx in the interhemispheric [...] The skull is intact. IMPRESSION: Right anterior parafalcine 5 mm hyperdense lesion. The appearance is suggestive of a meningioma, but given the history of trauma, a small acute subdural hemorrhage cannot be excluded. Attention on close interval follow-up is recommended.Signed: Johana Candelaria [facility]ENTEReport Verified Date/Time: 07/01/2021 12:38:11 RAD, CHEST, 1 VIEW, NON [id number] 11:56:00Reason for exam:->feverShould this be performed at the bedside?->Yes[facility] PAULINO : 1945 Sex: FFINAL REPORT EXAMINATION: RAD, CHEST, 1 VIEW, NON DEPT. INDICATION: 75-year-old female with fever. COMPARISON: None. FINDINGS:The cardiac silhouette is normal in size. Mild calcification ofthe thoracic aorta. No evidence of consolidation. No pleural effusion. No pneumothorax. Moderate to severe degenerative changes of the bilateral shoulders with surgical anchors noted in the bilateral humeral heads. A thin, linear radiopaque structures overlies the right neck and upper chest wall, possibly a catheter. IMPRESSION:No evidence of pneumonia or other acute cardiopulmonary abnormality. Signed: Husam Cornejo MDReport Verified Date/Time: 07/01/2021 11:56:21 Reading Location: [facility] B1 [id number] Ortho Consult Reading Room POCT-GLUCOSE [id number] 08:23:26 Test Item Value Reference Range Interpretation Comments POC-GLUCOSE METER 173 mg/dL 70-110 H : TESTED A T [facility] 6720 (BEAKER) (test code = RAZIAAMANDA Leung [facility], 1538) 10691: Online Content Developer/Techni elly ID = [id number] for Raj gricelda Leonel Respiratory Panel [id number] 08:01:39 Test Item Value Reference Range Interpretation Comments Human Metapneumovirus Not detected Not detected, (test code = 98549-9) Equivocal Rhinovirus (test code = Not detected Not detected, 73559-4) Equivocal INFLUENZA A (NO Not detected Not detected, SUBTYPE) (test code = Equivocal 24052-3) Influenza A subtype H1 (test code = 59146-9) Influenza A Subtype H3 (test code = 52466-0) Influenza A Subtype H1-2009 (test code = 72442-9) Influenza B (test code Not detected Not detected, = 29934-7) Equivocal Respiratory Syncytial Not detected Not detected, Virus (test code = Equivocal 37091-1) Parainfluenza Virus 1 Not detected Not detected, (test code = 94583-6) Equivocal Parainfluenza Virus 2 Not detected Not detected, (test code = 77916-1) Equivocal Parainfluenza virus 3 Not detected Not detected, (test code = 22007-4) Equivocal Parainfluenza Virus 4 Not detected Not detected, (test code = 22665-2) Equivocal Adenovirus (test code = Not detected Not detected, 88752-2) Equivocal Coronavirus 229E (test Not detected Not detected, code = 59132-7) Equivocal Coronavirus HKU1 (test Not detected Not detected, code = 80261-5) Equivocal Coronavirus NL63 (test Not detected Not detected, code = 90237-2) Equivocal Coronavirus OC43 (test Not detected Not detected, code = 29369-1) Equivocal Bordetella Pertussis Not detected Not detected, (test code = 08272-8) Equivocal Chlamydophila Not detected Not detected, Pneumoniae (test code = Equivocal 48255-9) Mycoplasma Pneumoniae Not detected Not detected, (test code = 58755-7) Equiv[employer] TUTU (test code = TUTU) Other viruses and bacteria not targeted by this PCR panel cannot be excluded; therefore clinical correlation and follow up of serology, culture results, and other molecular studies is required. The results are not intended to be used as the sole means for clinical diagnosis or patient management decisions. This sample was tested at the [facility] using the [employer] Respiratory Panel. It is FDA cleared and has been verified and approved by the [facility] for clinical use on nasopharyngeal swab specimens. The performance of the [employer] RP has not been established in individuals who received influenza vaccine. Recent administration of a nasal influenza vaccine may cause false positive results for Influenza A and/orInfluenza B. [facility] [id number] 08:01:39 Test Item Value Reference Range Interpretation [...] (test Not detected Not detected, code = 2694) Equivocal CORONAVIRUS 229E (BEAKER) Not detected Not [...] decisions. This sample was tested at the [facility]ostics [facility] using the [employer] Respiratory Panel. It is FDA cleared and has been verified and approved by the [facility]ostics [facility] for clinical use on nasopharyngeal swab specimens.The performance of the FilmArrayRP has not been established in individuals who received influenza vaccine. Recent administration of a nasal influenza vaccine may cause false positive results for Influenza A and/orInfluenza B.Urinalysis with Microscopic If Ftfjhlies1548-11-00 07:46:30 Test Item Value Reference Range Interpretation Comments Color, UA (test code = Light Yellow 5778-6) Clarity, UA (test code Clear = 5767-9) Specific [place], UA 1.009 1.001-1.035 (test code = 5811-5) pH, UA (test code = 7.0 5.0-8.0 5803-2) Protein, UA (test code Negative Negative = 47680-8) Glucose, UA (test code Negative Negative = 365) Ketones, UA (test code Negative Negative = 2514-8) Bilirubin, UA (test Negative Negative code = 81130-5) Blood, UA (test code = Negative Negative 40538-9) Nitrite, UA (test code Negative Negative = 5802-4) Leukocytes, UA (test Negative Negative code = 5799-2) Urobilinogen, UA (test 0.2 mg/dL 0.2-1.0 code = 28635-3) Specimen Source (test code = 2795) TUTU (test code = TUTU) Online Content Developer ID - [auto]Online Content Developer ID - tech [facility] WITH MICROSCOPIC IF [id number] 07:46:30 Test Item Value Reference Range Interpretation [...] = 463) SOURCE(BEAKER) (test code = 2795) Online Content Developer ID - [auto]Online Content Developer ID - techSARS-CoV2/RT-PCR (Symptomatic ONLY) 2021-07-01 07:30:51 Test Item Value Reference Interpretation Comments Range SARS-COV2/RT-PCR Negative Negative The SARS-Co V-2 (test code = target nucleic 95579-1) acids are not detected in thi s specimen. Negat usha results do not preclude SARS-C oV-2 infection and should not be u sed as the sole bas is for patient management decisions. Nega tive results must be combined with clinical observations, patient history , and epidemiolog ical information. A false negative result may occu r if a specimen is improperly collected, transported or handled. This S ARS CoV-2 test is a rapid, real-tashi e RT-PCR test intended for th e qualitative detection of nucleic acid fr om SARS-CoV-2 in a nasopharyngeal swab specimen collec mele from individual s suspected of COVID-19 by the ir healthcare provider. TUTU (test code = This test has been TUTU) authorized by FDA under an EUA for use by authorized laboratories. This test is only authorized for the duration of the declaration that circumstances exist justifying the authorization of emergency use of in vitro diagnostic tests for detection and/or diagnosis of COVID-19 under Section 564(b)(1) of the Federal Food, Drug and Cosmetic Act, 21 U.S.C. 360bbb-3(b)(1), unless the authorization is terminated or revoked sooner. Fact Sheet for Healthcare Providers: https://www.[employer]/Documents/Xp ert%20Xpress%20SAR S%20CoV-2/Fact%20S heets/302-3802%20S ARS-COV-2%20HEALTH CARE%20PROVIDERS%2 0FACT%20SHEET.pdf Fact Sheet for Healthcare Patients: https://www.[employer]/Documents/Xp ert%20Xpress%20SAR S%20CoV-2/Fact%20S heets/302-3801%20S ARS-COV-2%20PATIEN T%20FACT%20SHEET.p df Lab Interpretation Normal (test code = 28619-1) [facility])2021-07-01 07:30:51 Test Item Value Reference Range Interpretation Comments SARS-COV2/RT-PCR Negative Negative The SARS-Co V-2 target (test code = nucleic acids a re not 8862883) detected in thi s specimen. Negative result [...] This SARS CoV-2 test is a rapid, real-time RT-PC R test intended for th e qualitative detection [...] Food, Drug and Cosmetic Act, 21 U.S.C. 360bbb-3(b)(1), unless the authorization is terminated or revoked sooner. Fact Sheet for Healthcare Providers: https://www.[employer]/Documents/Xpert%20Xpress%20SARS%20CoV-2/Fact%20Sheets/3023802%63GXSV-LAA-4%20 HEALTHCARE%20PROVIDERS%20FACT%20SHEET.pdf Fact Sheet for Healthcare Patients: https://www.[employer]/Documents/Xpert%20Xp ress%20SARS%20CoV-2/Fact%20Sheets/3023801%93UMKD-OSC-7%20PATIENT%20FACT%20SHEET .pdfCreatine Kinase (CK)2021-07-01 06:33:15 Test Item Value Reference Range Interpretation Comments Total CK (test code = 173 U/L 29-200 2157-6) TUTU (test code = TUTU) Online Content Developer ID Juan Mojica Lab Interpretation (test Normal code = 00038-5) [facility] (CK)2021-07-01 06:33:15 Test Item Value Reference Range Interpretation Comments CREATINE KINASE TOTAL (BEAKER) (test 173 U/L 29-200 code = 380) Online Content Developer SARAH CODY MComprehensive metabolic [id number] 06:33:14 Test Item Value Reference Range Interpretation Comments Protein, Total (test 6.6 See_Comment [Autom ated code = 2885-2) message] The system which generated this result transmit mele reference range : 6.0 - 8.3 gm/dL . The reference range was not u sed to interpret th is result as normal/abnormal . Albumin (test code = 4.1 g/dL 3.5-5.0 45214-5) Alkaline Phosphatase 65 U/L 40-150 (test code = 6768-6) Total Bilirubin (test 0.4 mg/dL 0.2-1.2 code = 1974-2) Sodium (test code = 141 meq/L 300-326 8638-2) Potassium (test code 3.9 meq/L 3.5-5.1 = 2823-3) Chloride (test code = 104 meq/L 98-107 2075-0) CO2 (test code = 27 meq/L 22-29 8-9) BUN (test code = 10 mg/dL 7-21 3094-0) Creatinine (test code 0.84 mg/dL 0.57-1.25 = 2160-0) Glucose (test code = 167 mg/dL 70-105 H 2345-7) Calcium (test code = 9.3 mg/dL 8.4-10.2 52341-8) AST (test code = 17 U/L 5-34 1920-8) ALT (test code = 18 U/L 6-55 1742-6) EGFR (test code = 66 mL/min/1.[place] [address]-0) NOT ACCURATE CREATININE CLEARANCE IN PREDICTING GLOMERULAR FILTRATION RATE . ESTIMATED GFR I S NOT APPLICABLE FOR DIALYSIS PATIEN TS. CAM (test code = TUTU) Online Content Developer ID - GLO M Lab Interpretation Abnormal (test code = 57674-0) [facility] MET[facility]OLIC [id number] 06:33:14 Test Item Value Reference Range Interpretation [...] 347) EGFR (BEAKER) (test 66 mL/min/1.73 ESTIMA MELE GFR IS code = 1092) sq m NOT ACCURATE CREATININE CLEARANCE IN PREDICTING GLOMERULAR FILTRATION RATE . ESTIMATED GFR I S NOT APPLICABLE FOR DIALYSIS PATIEN TS. Online Content Developer ID - GLO [id number] 06:33:14 Test Item Value Reference Range Interpretation Comments MAGNESIUM (BEAKER) (test code = 1.8 mg/dL 1.6-2.6 627) Online Content Developer ID - GLO MHigh Sensitivity Troponin I ([facility] Only)2021-07-01 06:24:30 Test Item Value Reference Range Interpretation Comments Troponin I HS (test 9 pg/ml See_Comment [Automa mele code = 31915-0) message] The system which generated this result transmitted reference range : <=17. The reference range was not used to interpret this result as normal/abnormal . TUTU (test code = Online Content Developer ID - GLO TUTU) [facility] BLADE OPERATOR STAT High Sensitivity Troponin-I results should be used in conjunction with other diagnostic information such as ECG, clinical observations and information, and patient symptoms to aid in the diagnosis of [place]. Lab Interpretation Normal (test code = 88881-8) [facility] CenterH[facility] SENSITIVITY TROPONIN [id number] 06:24:30 Test Item Value Reference Range Interpretation Comments HIGH SENSITIVITY 9 pg/ml See_Comment [Automated message] TROPONIN I (test code = The system which [id number]) generated this result transmitted ref erence range: <=17. Th e reference range was not used to interpr et this result as normal/abnormal . Online Content Developer ID - GLO MThe BLADE OPERATOR STAT High Sensitivity Troponin-I results should be used in conjunction with other diagnostic information such as ECG, clinical observations and information, and patient symptoms to aid in the diagnosis of [place].Prothrombin time/[id number] 06:09:43 Test Item Value Reference Interpretation Comments Range Protime (test code = 13.0 See_Comment [Autom ated 5902-2) message] The system which generated this result transmitted reference range : 11.9 - 14.2 seconds. The reference range was not used to interpret this result as normal/abnormal . INR (test code = 1.00 See_Comment [Automated 6301-6) message] The system which generated this result transmitted reference range : <=5.90. The reference range was not used to interpret this result as normal/abnormal . TUTU (test code = RECOMMENDED TUTU) COUMADIN/WARFARIN INR THERAPY RANGESSTANDARD DOSE: 2.0 - 3.0 Includes: PROPHYLAXIS for venous thrombosis, systemic embolization; TREATMENT for venous thrombosis and/or pulmonary embolus.HIGH RISK: Target INR is 2.5-3.5 for patients with mechanical heart valves. Lab Interpretation Normal (test code = 78851-2) [facility] CenterPROTHROMBIN TIME/[id number] 06:09:43 Test Item Value Reference Range Interpretation Comments PROTIME (BEAKER) 13.0 seconds 11.9-14.2 (test code = 759) INR (BEAKER) (test 1.00 See_Comment [Automat ed message] code = 370) The system [employer] generated this result transmitted ref erence range: <=5.90. The reference range was not used to int erpret this result as normal/abnormal . RECOMMENDED COUMADIN/WARFARIN INR THERAPY RANGESSTANDARD DOSE: 2.0 - 3.0 Includes: PROPHYLAXIS for venous thrombosis, systemic embolization; TREATMENT for venous thrombosis and/or pulmonary embolus.HIGH RISK: Target INR is 2.5-3.5 for patients with mechanical heart valves.CBC W/PLT COUNT & AUTO [id number] 05:58:17 Test Item Value Reference Range Interpretation [...] % 0-1 PERCENT (BEAKER) (test code = 2801) MOLECULAR [id number] 08:11:00 Test Item Value Reference Range Interpretation Comments C difficile DNA (test Negative (04/20/15 code = C difficile DNA) 2:11 AM) [facility] [id number] 08:11:00 Test Item Value Reference Range Interpretation Comments Occult Bld Stl (test Negative (04/20/15 2:11 code = Occult Bld Stl) AM) [facility] [id number] 08:11:00 Test Item Value Reference Range Interpretation Comments Fecal Leukocyte (test None Seen (04/20/15 code = Fecal Leukocyte) 2:11 AM) [facility] [id number] 08:11:00 Test Item Value Reference Range Interpretation Comments C difficile DNA (test Negative (04/20/15 code = C difficile DNA) 2:11 AM) [facility] [id number] 08:11:00 Test Item Value Reference Range Interpretation Comments Occult Bld Stl (test Negative (04/20/15 2:11 code = Occult Bld Stl) AM) [facility] [id number] 08:11:00 Test Item Value Reference Range Interpretation Comments Fecal Leukocyte (test None Seen (04/20/15 code = Fecal Leukocyte) 2:11 AM) [facility] [id number] 08:11:00 Test Item Value Reference Range Interpretation Comments C difficile DNA (test Negative (04/20/15 code = C difficile DNA) 2:11 AM) [facility] [id number] 08:11:00 Test Item Value Reference Range Interpretation Comments Occult Bld Stl (test Negative (04/20/15 2:11 code = Occult Bld Stl) AM) [facility] [id number] 08:11:00 Test Item Value Reference Range Interpretation Comments Fecal Leukocyte (test None Seen (04/20/15 code = Fecal Leukocyte) 2:11 AM) [facility] [id number] 02:01:00 Test Item Value Reference Range Interpretation Comments UA Leuk Est (test Negative (04/19/15 8:01 code = UA Leuk Est) PM) [facility] HermannCHEM [id number] 02:01:00 Test Item Value Reference Range Interpretation Comments eGFR (test code = eGFR) [facility] [id number] 02:01:00 Test Item Value Reference Range Interpretation Comments Alk Phos (test code = Alk Phos) 74 39-136 [facility]2015-12-30 02:01:00 Test Item Value Reference Range Interpretation Comments Bili Total (test code = Bili Total) 0.2 0.2-1.3 [facility]2015-12-30 02:01:00 Test Item Value Reference Range Interpretation Comments ALT (test code = ALT) 24 See_Comment [Auto mated message] The system which ge nerated this result transmit mele reference range : <=65. The reference range was not used to interpr et this result as edgardo l/abnormal. [facility]2015-12-30 02:01:00 Test Item Value Reference Range Interpretation Comments AST (test code = AST) 15 See_Comment [Auto mated message] The system which ge nerated this result transmit mele reference range : <=37. The reference range was not used to interpr et this result as edgardo l/abnormal. [facility]2015-12-30 02:01:00 Test Item Value Reference Range Interpretation Comments A/G Ratio (test code = A/G Ratio) 1.5 0.7-1.6 [facility]2015-12-30 02:01:00 Test Item Value Reference Range Interpretation Comments Albumin Lvl (test code = Albumin Lvl) 4.1 3.5-5.0 [facility]2015-12-30 02:01:00 Test Item Value Reference Range Interpretation Comments Globulin (test code = Globulin) 2.8 2.0-4.0 [facility]2015-12-30 02:01:00 Test Item Value Reference Range Interpretation Comments B/C Ratio (test code = B/C Ratio) 9 6-25 [facility]2015-12-30 02:01:00 Test Item Value Reference Range Interpretation Comments Total Protein (test code = Total 6.9 6.4-8.4 Protein) [facility]2015-12-30 02:01:00 Test Item Value Reference Range Interpretation Comments Calcium Lvl (test code = Calcium Lvl) 9.1 8.5-10.5 [facility]2015-12-30 02:01:00 Test Item Value Reference Range Interpretation Comments AGAP (test code = AGAP) 12.0 10.0-20.0 [facility]2015-12-30 02:01:00 Test Item Value Reference Range Interpretation Comments Chloride Lvl (test code = Chloride Lvl) 101 95-109 [facility]2015-12-30 02:01:00 Test Item Value Reference Range Interpretation Comments CO2 (test code = CO2) 25 24-32 [facility]2015-12-30 02:01:00 Test Item Value Reference Range Interpretation Comments Sodium Lvl (test code = Sodium Lvl) 134 135-145 [facility]2015-12-30 02:01:00 Test Item Value Reference Range Interpretation Comments Potassium Lvl (test code = Potassium 4.0 3.5-5.1 Lvl) [facility]2015-12-30 02:01:00 Test Item Value Reference Range Interpretation Comments Creatinine Lvl (test code = Creatinine 0.79 0.50-1.40 Lvl) [facility]2015-12-30 02:01:00 Test Item Value Reference Range Interpretation Comments Glucose Lvl (test code = Glucose Lvl) 143 70-99 [facility]2015-12-30 02:01:00 Test Item Value Reference Range Interpretation Comments BUN (test code = BUN) 7 7-22 [facility]2015-12-30 02:01:00 Test Item Value Reference Range Interpretation Comments Lipase Lvl (test code = Lipase Lvl) 228 73-393 [facility]RqxevyoVZHJLZMQIA2855-70-10 02:01:00 Test Item Value Reference Range Interpretation Comments Segs (test code = Segs) 53.6 45.0-75.0 [facility] DallasWrzxpvxMJGQYBOHTV6116-43-49 02:01:00 Test Item Value Reference Range Interpretation Comments Basophils (test code = 1.3 See_Comment [Aut omated message] The Basophils) system which ge nerated this result tra nsmitted reference range : <=1.0. The reference r lisa was not used to int erpret this result as normal/abnormal . [facility] DallasWtnwgnrLJTRZFBBMX5651-93-98 02:01:00 Test Item Value Reference Range Interpretation Comments Lymphocytes (test code = Lymphocytes) 37.7 20.0-40.0 [facility] DallasMethwotWHMNKNKRVW2272-77-59 02:01:00 Test Item Value Reference Range Interpretation Comments Monocytes (test code = Monocytes) 5.3 2.0-12.0 [facility] DallasUiowjaeHVPAHZAYIY8298-77-97 02:01:00 Test Item Value Reference Range Interpretation Comments Eosinophils (test code = 2.1 See_Comment [A utomated message] The Eosinophils) system which ge nerated this result tra nsmitted reference range : <=4.0. The reference r lisa was not used to int erpret this result as normal/abnormal . [facility] DallasNkpgszeMSNLXFRFYU8111-69-92 02:01:00 Test Item Value Reference Range Interpretation Comments Basophils # (test code 0.1 See_Comment [Aut omated message] The = Basophils #) system which generated this result tra nsmitted reference range : <=0.2. The reference r lisa was not used to int erpret this result as normal/abnormal . [facility] DallasFeswzohQGPEEXZTVL8774-07-69 02:01:00 Test Item Value Reference Range Interpretation Comments Segs-Bands # (test code = Segs-Bands #) 4.8 1.5-8.1 [facility] DallasCouqhiaSHMTSLYNMG7047-88-96 02:01:00 Test Item Value Reference Range Interpretation Comments Eosinophils # (test code 0.2 See_Comment [A utomated message] The = Eosinophils #) system wh h generated this result tra nsmitted reference range : <=0.5. The reference r lisa was not used to int erpret this result as normal/abnormal . [facility] DallasTxjeweiZDDWGBTBOA2146-97-66 02:01:00 Test Item Value Reference Range Interpretation Comments Lymphocytes # (test code = Lymphocytes 3.4 1.0-5.5 #) [facility] DallasRcbrtuwLNRYWFJIYZ1222-33-62 02:01:00 Test Item Value Reference Range Interpretation Comments Monocytes # (test code 0.5 See_Comment [Aut omated message] The = Monocytes #) system which generated this result tra nsmitted reference range : <=0.8. The reference r lisa was not used to int erpret this result as normal/abnormal . [facility] DallasDcydnkzICYUTLRQRE6140-72-61 02:01:00 Test Item Value Reference Range Interpretation Comments MPV (test code = MPV) 7.5 7.4-10.4 [facility] DallasUpnrjcdAUTJYPBGLZ5100-05-42 02:01:00 Test Item Value Reference Range Interpretation Comments Platelet (test code = Platelet) 241 648-450 [facility] DallasRacfcyuRAGQVLHIDE8380-84-38 02:01:00 Test Item Value Reference Range Interpretation Comments Hct (test code = Hct) 39.1 36.0-48.0 [facility] DallasMzzeuxcPCSZSJTOYJ5246-15-48 02:01:00 Test Item Value Reference Range Interpretation Comments Hgb (test code = Hgb) 13.0 12.0-16.0 [facility] DallasKtqjvlzQMVUVVKBJI7944-60-58 02:01:00 Test Item Value Reference Range Interpretation Comments MCV (test code = MCV) 88.8 80.0-98.0 [facility] DallasSnhqhtpLURKDKMNHT6404-00-88 02:01:00 Test Item Value Reference Range Interpretation Comments RDW (test code = RDW) 14.3 11.5-14.5 [facility] DallasUcpjlyeSMPIYBRRET4089-34-11 02:01:00 Test Item Value Reference Range Interpretation Comments RBC (test code = RBC) 4.40 4.20-5.40 [facility] DallasOsafassJHWQACOVUD7598-42-94 02:01:00 Test Item Value Reference Range Interpretation Comments WBC (test code = WBC) 9.1 3.7-10.4 [facility] DallasOkwfiidEIONUDSMRG1689-02-89 02:01:00 Test Item Value Reference Range Interpretation Comments MCH (test code = MCH) 29.6 pg 27.0-31.0 [facility] DallasTbfadcbPKZQWDPLRE6741-57-61 02:01:00 Test Item Value Reference Range Interpretation Comments MCHC (test code = MCHC) 33.3 32.0-36.0 [facility] DallasUktqhgmQQYJHIWSGS3481-30-59 02:01:00 Test Item Value Reference Range Interpretation Comments PT (test code = PT) 12.6 s 12.0-14.7 [facility] DallasSqtgbqlFTWCSDHEJZ0752-27-36 02:01:00 Test Item Value Reference Range Interpretation Comments INR (test code = INR) 0.91 0.85-1.17 [facility] DallasCzibawpWBVJLQTSQV5233-47-63 02:01:00 Test Item Value Reference Range Interpretation Comments PTT (test code = PTT) 31.6 s 22.9-35.8 [facility]FvbzgjuVQLBMLCNTF6801-32-37 02:01:00 Test Item Value Reference Range Interpretation Comments [place]-Hep C Ab (test Negative *NA*(04/19/15 code = [place]-Hep C 8:01 PM) Ab) [facility] AND [id number] 02:01:00 Test Item Value Reference Range Interpretation Comments UA Spec Grav (test *NA*(04/19/15 8:01 PM) code = UA Spec Grav) [facility] AND [id number] 02:01:00 Test Item Value Reference Range Interpretation Comments UA pH (test code = UA pH) 6.0 1 5.0-8.0 [facility] AND [id number] 02:01:00 Test Item Value Reference Range Interpretation Comments UA Protein (test code Negative (04/19/15 8:01 = UA Protein) PM) [facility] AND [id number] 02:01:00 Test Item Value Reference Range Interpretation Comments UA Glucose (test code Negative (04/19/15 8:01 = UA Glucose) PM) [facility] AND [id number] 02:01:00 Test Item Value Reference Range Interpretation Comments UA Color (test code = Yellow *NA*(04/19/15 UA Color) 8:01 PM) [facility] AND [id number] 02:01:00 Test Item Value Reference Range Interpretation Comments UA Turbidity (test code = Clear (04/19/15 8:01 UA Turbidity) PM) [facility] AND [id number] 02:01:00 Test Item Value Reference Range Interpretation Comments UA Blood (test code = Negative (04/19/15 8:01 UA Blood) PM) [facility] AND [id number] 02:01:00 Test Item Value Reference Range Interpretation Comments UA Nitrite (test code Negative (04/19/15 8:01 = UA Nitrite) PM) [facility] AND [id number] 02:01:00 Test Item Value Reference Range Interpretation Comments UA Bili (test code = Negative *NA*(04/19/15 UA Bili) 8:01 PM) [facility] AND [id number] 02:01:00 Test Item Value Reference Range Interpretation Comments UA Urobilinogen (test code = UA 0.2 0.1-1.0 Urobilinogen) [facility] AND [id number] 02:01:00 Test Item Value Reference Range Interpretation Comments UA Ketones (test code Negative *NA*(04/19/15 = UA Ketones) 8:01 PM) [facility] [id number] 02:01:00 Test Item Value Reference Range Interpretation Comments UA Sq Epi (test code = None Seen (04/19/15 UA Sq Epi) 8:01 PM) [facility] [id number] 02:01:00 Test Item Value Reference Range Interpretation Comments UA WBC (test code = UA None Seen (04/19/15 WBC) 8:01 PM) [facility] [id number] 02:01:00 Test Item Value Reference Range Interpretation Comments UA RBC (test None Seen See_Comment [Automated mes anthony] code = UA RBC) (04/19/15 8:01 The system which PM) generated this result transmitted ref erence range: <=2. The reference range was not used to int erpret this result as normal/abnormal . [facility] [id number] 02:01:00 Test Item Value Reference Range Interpretation Comments UA Bacteria (test code = None Seen (04/19/15 UA Bacteria) 8:01 PM) [facility] [id number] 02:01:00 Test Item Value Reference Range Interpretation Comments UA Leuk Est (test Negative (04/19/15 8:01 code = UA Leuk Est) PM) [facility] [id number] 02:01:00 Test Item Value Reference Range Interpretation Comments eGFR (test code = eGFR) 78 [facility] [id number] 02:01:00 Test Item Value Reference Range Interpretation Comments Alk Phos (test code = Alk Phos) 74 39-136 [facility] [employer]CHE[employer] [id number] 02:01:00 Test Item Value Reference Range Interpretation Comments Bili Total (test code = Bili Total) 0.2 0.2-1.3 [facility] [id number] 02:01:00 Test Item Value Reference Range Interpretation Comments ALT (test code = ALT) 24 See_Comment [Auto mated message] The system which ge nerated this result transmit mele reference range : <=65. The reference range was not used to interpr et this result as edgardo l/abnormal. [facility]2015-12-30 02:01:00 Test Item Value Reference Range Interpretation Comments AST (test code = AST) 15 See_Comment [Auto mated message] The system which ge nerated this result transmit mele reference range : <=37. The reference range was not used to interpr et this result as edgardo l/abnormal. [facility]2015-12-30 02:01:00 Test Item Value Reference Range Interpretation Comments A/G Ratio (test code = A/G Ratio) 1.5 0.7-1.6 [facility]2015-12-30 02:01:00 Test Item Value Reference Range Interpretation Comments Albumin Lvl (test code = Albumin Lvl) 4.1 3.5-5.0 [facility]2015-12-30 02:01:00 Test Item Value Reference Range Interpretation Comments Globulin (test code = Globulin) 2.8 2.0-4.0 [facility]2015-12-30 02:01:00 Test Item Value Reference Range Interpretation Comments B/C Ratio (test code = B/C Ratio) 9 6-25 [facility]2015-12-30 02:01:00 Test Item Value Reference Range Interpretation Comments Total Protein (test code = Total 6.9 6.4-8.4 Protein) [facility]2015-12-30 02:01:00 Test Item Value Reference Range Interpretation Comments Calcium Lvl (test code = Calcium Lvl) 9.1 8.5-10.5 [facility]2015-12-30 02:01:00 Test Item Value Reference Range Interpretation Comments AGAP (test code = AGAP) 12.0 10.0-20.0 [facility]2015-12-30 02:01:00 Test Item Value Reference Range Interpretation Comments Chloride Lvl (test code = Chloride Lvl) 101 95-109 [facility]2015-12-30 02:01:00 Test Item Value Reference Range Interpretation Comments CO2 (test code = CO2) 25 24-32 [facility]2015-12-30 02:01:00 Test Item Value Reference Range Interpretation Comments Sodium Lvl (test code = Sodium Lvl) 134 135-145 [facility]2015-12-30 02:01:00 Test Item Value Reference Range Interpretation Comments Potassium Lvl (test code = Potassium 4.0 3.5-5.1 Lvl) [facility]2015-12-30 02:01:00 Test Item Value Reference Range Interpretation Comments Creatinine Lvl (test code = Creatinine 0.79 0.50-1.40 Lvl) [facility]2015-12-30 02:01:00 Test Item Value Reference Range Interpretation Comments Glucose Lvl (test code = Glucose Lvl) 143 70-99 [facility]2015-12-30 02:01:00 Test Item Value Reference Range Interpretation Comments BUN (test code = BUN) 7 7-22 [facility]2015-12-30 02:01:00 Test Item Value Reference Range Interpretation Comments Lipase Lvl (test code = Lipase Lvl) 228 73-393 [facility] DallasAvmwucvXJCFDKKGVY1562-11-20 02:01:00 Test Item Value Reference Range Interpretation Comments Segs (test code = Segs) 53.6 45.0-75.0 [facility] DallasNdktbvlCYIDCFJJSK7496-70-36 02:01:00 Test Item Value Reference Range Interpretation Comments Basophils (test code = 1.3 See_Comment [Aut omated message] The Basophils) system which ge nerated this result tra nsmitted reference range : <=1.0. The reference r lisa was not used to int erpret this result as normal/abnormal . [facility] DallasHmushzrXFTSBQCLRG2833-51-05 02:01:00 Test Item Value Reference Range Interpretation Comments Lymphocytes (test code = Lymphocytes) 37.7 20.0-40.0 [facility] DallasZxxslikIEWRNEQBDD7309-64-24 02:01:00 Test Item Value Reference Range Interpretation Comments Monocytes (test code = Monocytes) 5.3 2.0-12.0 [facility] DallasUkbrvmhAJPAZJDPDX6034-35-94 02:01:00 Test Item Value Reference Range Interpretation Comments Eosinophils (test code = 2.1 See_Comment [A utomated message] The Eosinophils) system which ge nerated this result tra nsmitted reference range : <=4.0. The reference r lisa was not used to int erpret this result as normal/abnormal . [facility] DallasDykffumZTKZAJWNNI9581-40-36 02:01:00 Test Item Value Reference Range Interpretation Comments Basophils # (test code 0.1 See_Comment [Aut omated message] The = Basophils #) system which generated this result tra nsmitted reference range : <=0.2. The reference r lisa was not used to int erpret this result as normal/abnormal . [facility] DallasQqwnlacLUMUEVTSDA0129-23-63 02:01:00 Test Item Value Reference Range Interpretation Comments Segs-Bands # (test code = Segs-Bands #) 4.8 1.5-8.1 [facility] DallasQnrxspiVMXLGEHDSR6467-70-13 02:01:00 Test Item Value Reference Range Interpretation Comments Eosinophils # (test code 0.2 See_Comment [A utomated message] The = Eosinophils #) system whic h generated this result tra nsmitted reference range : <=0.5. The reference r lisa was not used to int erpret this result as normal/abnormal . [facility] DallasMqlovazNCGYJZWAQB9609-24-79 02:01:00 Test Item Value Reference Range Interpretation Comments Lymphocytes # (test code = Lymphocytes 3.4 1.0-5.5 #) [facility] DallasEwkmtunACZIESKXDF7757-90-87 02:01:00 Test Item Value Reference Range Interpretation Comments Monocytes # (test code 0.5 See_Comment [Aut omated message] The = Monocytes #) system which generated this result tra nsmitted reference range : <=0.8. The reference r lisa was not used to int erpret this result as normal/abnormal . [facility] DallasYetqadqZKDEOSWWKH2123-97-26 02:01:00 Test Item Value Reference Range Interpretation Comments MPV (test code = MPV) 7.5 7.4-10.4 [facility] DallasFiumbrwHMHCWZBWLS0149-50-21 02:01:00 Test Item Value Reference Range Interpretation Comments Platelet (test code = Platelet) 241 133-450 [facility] DallasUxcijihLKJDSMCGZB9327-51-67 02:01:00 Test Item Value Reference Range Interpretation Comments Hct (test code = Hct) 39.1 36.0-48.0 [facility] DallasThikeviOBRAUWWLLH0438-84-52 02:01:00 Test Item Value Reference Range Interpretation Comments Hgb (test code = Hgb) 13.0 12.0-16.0 [facility] DallasTquawilEEHRGGWVCV8252-40-88 02:01:00 Test Item Value Reference Range Interpretation Comments MCV (test code = MCV) 88.8 80.0-98.0 [facility]AfvmetoMLESOEDBCW7039-98-91 02:01:00 Test Item Value Reference Range Interpretation Comments RDW (test code = RDW) 14.3 11.5-14.5 [facility] HospitalTgjyhfuXJLXIZISXF9503-99-92 02:01:00 Test Item Value Reference Range Interpretation Comments RBC (test code = RBC) 4.40 4.20-5.40 [facility] DallasOleigpjVRYGXRUZJD1927-81-25 02:01:00 Test Item Value Reference Range Interpretation Comments WBC (test code = WBC) 9.1 3.7-10.4 [facility] HospitalOzazovdGAZWQHDOII7717-22-87 02:01:00 Test Item Value Reference Range Interpretation Comments MCH (test code = MCH) 29.6 pg 27.0-31.0 [facility] HospitalGeaallbDLVANXUFIE3801-86-85 02:01:00 Test Item Value Reference Range Interpretation Comments MCHC (test code = MCHC) 33.3 32.0-36.0 [facility] DallasHduevunRNGMIUUMSF4912-73-01 02:01:00 Test Item Value Reference Range Interpretation Comments PT (test code = PT) 12.6 s 12.0-14.7 [facility] HospitalRebwekqIMXRKLCSQH5601-22-40 02:01:00 Test Item Value Reference Range Interpretation Comments INR (test code = INR) 0.91 0.85-1.17 [facility] HospitalVbbtzkeAVGQJRQREA0073-45-24 02:01:00 Test Item Value Reference Range Interpretation Comments PTT (test code = PTT) 31.6 s 22.9-35.8 [facility]vyGEHWBXDIQK7511-69-69 02:01:00 Test Item Value Reference Range Interpretation Comments [place]-Hep C Ab (test Negative *NA*(04/19/15 code = [place]-Hep C 8:01 PM) Ab) [facility] AND [id number] 02:01:00 Test Item Value Reference Range Interpretation Comments UA Spec Grav (test *NA*(04/19/15 8:01 PM) code = UA Spec Grav) [facility] AND [id number] 02:01:00 Test Item Value Reference Range Interpretation Comments UA pH (test code = UA pH) 6.0 1 5.0-8.0 [facility] AND [id number] 02:01:00 Test Item Value Reference Range Interpretation Comments UA Protein (test code Negative (04/19/15 8:01 = UA Protein) PM) [facility] [id number] 02:01:00 Test Item Value Reference Range Interpretation Comments UA Glucose (test code Negative (04/19/15 8:01 = UA Glucose) PM) [facility] [id number] 02:01:00 Test Item Value Reference Range Interpretation Comments UA Color (test code = Yellow *NA*(04/19/15 UA Color) 8:01 PM) [facility] [id number] 02:01:00 Test Item Value Reference Range Interpretation Comments UA Turbidity (test code = Clear (04/19/15 8:01 UA Turbidity) PM) [facility] [id number] 02:01:00 Test Item Value Reference Range Interpretation Comments UA Blood (test code = Negative (04/19/15 8:01 UA Blood) PM) [facility] [id number] 02:01:00 Test Item Value Reference Range Interpretation Comments UA Nitrite (test code Negative (04/19/15 8:01 = UA Nitrite) PM) [facility] [id number] 02:01:00 Test Item Value Reference Range Interpretation Comments UA Bili (test code = Negative *NA*(04/19/15 UA Bili) 8:01 PM) [facility] AND [id number] 02:01:00 Test Item Value Reference Range Interpretation Comments UA Urobilinogen (test code = UA 0.2 0.1-1.0 Urobilinogen) [facility] [id number] 02:01:00 Test Item Value Reference Range Interpretation Comments UA Ketones (test code Negative *NA*(04/19/15 = UA Ketones) 8:01 PM) [facility] [id number] 02:01:00 Test Item Value Reference Range Interpretation Comments UA Sq Epi (test code = None Seen (04/19/15 UA Sq Epi) 8:01 PM) [facility] [id number] 02:01:00 Test Item Value Reference Range Interpretation Comments UA WBC (test code = UA None Seen (04/19/15 WBC) 8:01 PM) [facility] AND [id number] 02:01:00 Test Item Value Reference Range Interpretation Comments UA RBC (test None Seen See_Comment [Automated mes anthony] code = UA RBC) (04/19/15 8:01 The system which PM) generated this result transmitted ref erence range: <=2. The reference range was not used to int erpret this result as normal/abnormal . [facility] AND [id number] 02:01:00 Test Item Value Reference Range Interpretation Comments UA Bacteria (test code = None Seen (04/19/15 UA Bacteria) 8:01 PM) [facility] AND [id number] 02:01:00 Test Item Value Reference Range Interpretation Comments UA Bacteria (test code = None Seen (04/19/15 UA Bacteria) 8:01 PM) [facility] AND [id number] 02:01:00 Test Item Value Reference Range Interpretation Comments UA Leuk Est (test Negative (04/19/15 8:01 code = UA Leuk Est) PM) [facility] [employer] [id number] 02:01:00 Test Item Value Reference Range Interpretation Comments eGFR (test code = eGFR) 78 [facility]2015-12-30 02:01:00 Test Item Value Reference Range Interpretation Comments Alk Phos (test code = Alk Phos) 74 39-136 [facility]2015-12-30 02:01:00 Test Item Value Reference Range Interpretation Comments Bili Total (test code = Bili Total) 0.2 0.2-1.3 [facility]2015-12-30 02:01:00 Test Item Value Reference Range Interpretation Comments ALT (test code = ALT) 24 See_Comment [Auto mated message] The system which ge nerated this result transmit mele reference range : <=65. The reference range was not used to interpr et this result as edgardo l/abnormal. [facility] [employer] [id number] 02:01:00 Test Item Value Reference Range Interpretation Comments AST (test code = AST) 15 See_Comment [Auto mated message] The system which ge nerated this result transmit mele reference range : <=37. The reference range was not used to interpr et this result as edgardo l/abnormal. [facility] [employer] [id number] 02:01:00 Test Item Value Reference Range Interpretation Comments A/G Ratio (test code = A/G Ratio) 1.5 0.7-1.6 [facility]2015-12-30 02:01:00 Test Item Value Reference Range Interpretation Comments Albumin Lvl (test code = Albumin Lvl) 4.1 3.5-5.0 [facility]2015-12-30 02:01:00 Test Item Value Reference Range Interpretation Comments Globulin (test code = Globulin) 2.8 2.0-4.0 [facility]2015-12-30 02:01:00 Test Item Value Reference Range Interpretation Comments B/C Ratio (test code = B/C Ratio) 9 6-25 [facility]2015-12-30 02:01:00 Test Item Value Reference Range Interpretation Comments Total Protein (test code = Total 6.9 6.4-8.4 Protein) [facility]2015-12-30 02:01:00 Test Item Value Reference Range Interpretation Comments Calcium Lvl (test code = Calcium Lvl) 9.1 8.5-10.5 [facility]2015-12-30 02:01:00 Test Item Value Reference Range Interpretation Comments AGAP (test code = AGAP) 12.0 10.0-20.0 [facility]2015-12-30 02:01:00 Test Item Value Reference Range Interpretation Comments Chloride Lvl (test code = Chloride Lvl) 101 95-109 [facility]2015-12-30 02:01:00 Test Item Value Reference Range Interpretation Comments CO2 (test code = CO2) 25 24-32 [facility]2015-12-30 02:01:00 Test Item Value Reference Range Interpretation Comments Sodium Lvl (test code = Sodium Lvl) 134 135-145 [facility]2015-12-30 02:01:00 Test Item Value Reference Range Interpretation Comments Potassium Lvl (test code = Potassium 4.0 3.5-5.1 Lvl) [facility]2015-12-30 02:01:00 Test Item Value Reference Range Interpretation Comments Creatinine Lvl (test code = Creatinine 0.79 0.50-1.40 Lvl) [facility]2015-12-30 02:01:00 Test Item Value Reference Range Interpretation Comments Glucose Lvl (test code = Glucose Lvl) 143 70-99 [facility]2015-12-30 02:01:00 Test Item Value Reference Range Interpretation Comments BUN (test code = BUN) 7 7-22 [facility]2015-12-30 02:01:00 Test Item Value Reference Range Interpretation Comments Lipase Lvl (test code = Lipase Lvl) 228 73-393 [facility]DlskndxHVRGHFFSJJ8772-66-96 02:01:00 Test Item Value Reference Range Interpretation Comments Segs (test code = Segs) 53.6 45.0-75.0 [facility] DallasQyhaqdvMHYJNFRZGI4568-63-57 02:01:00 Test Item Value Reference Range Interpretation Comments Basophils (test code = 1.3 See_Comment [Aut omated message] The Basophils) system which ge nerated this result tra nsmitted reference range : <=1.0. The reference r lisa was not used to int erpret this result as normal/abnormal . [facility] DallasRpuffjgCYBHKBXOOW2425-05-24 02:01:00 Test Item Value Reference Range Interpretation Comments Lymphocytes (test code = Lymphocytes) 37.7 20.0-40.0 [facility] DallasBixitqkPJCGDENMOS6471-41-14 02:01:00 Test Item Value Reference Range Interpretation Comments Monocytes (test code = Monocytes) 5.3 2.0-12.0 [facility] DallasAveteohMNDYFZTHZP8532-00-96 02:01:00 Test Item Value Reference Range Interpretation Comments Eosinophils (test code = 2.1 See_Comment [A utomated message] The Eosinophils) system which ge nerated this result tra nsmitted reference range : <=4.0. The reference r lisa was not used to int erpret this result as normal/abnormal . [facility] DallasPwwfwoaIYMUDFDVRZ2526-74-83 02:01:00 Test Item Value Reference Range Interpretation Comments Basophils # (test code 0.1 See_Comment [Aut omated message] The = Basophils #) system which generated this result tra nsmitted reference range : <=0.2. The reference r lisa was not used to int erpret this result as normal/abnormal . [facility] DallasDavdqbzDGDZYRVKHO5136-35-96 02:01:00 Test Item Value Reference Range Interpretation Comments Segs-Bands # (test code = Segs-Bands #) 4.8 1.5-8.1 [facility] DallasLrqrkdpUVSIJPFDEU9490-08-44 02:01:00 Test Item Value Reference Range Interpretation Comments Eosinophils # (test code 0.2 See_Comment [A utomated message] The = Eosinophils #) system whic h generated this result tra nsmitted reference range : <=0.5. The reference r lisa was not used to int erpret this result as normal/abnormal . [facility] DallasKbhfvrrKQRGLPOKHF6434-77-96 02:01:00 Test Item Value Reference Range Interpretation Comments Lymphocytes # (test code = Lymphocytes 3.4 1.0-5.5 #) [facility] DallasAqbmespJCDHKFHAMZ0567-35-96 02:01:00 Test Item Value Reference Range Interpretation Comments Monocytes # (test code 0.5 See_Comment [Aut omated message] The = Monocytes #) system which generated this result tra nsmitted reference range : <=0.8. The reference r lisa was not used to int erpret this result as normal/abnormal . [facility] DallasXtpkfgaURHIDCBHKO0765-17-08 02:01:00 Test Item Value Reference Range Interpretation Comments MPV (test code = MPV) 7.5 7.4-10.4 [facility] DallasZfmiixjNHSWGUKNRK0077-55-28 02:01:00 Test Item Value Reference Range Interpretation Comments Platelet (test code = Platelet) 241 133-450 [facility] DallasZyigooeIYJOBFHDZL6476-96-90 02:01:00 Test Item Value Reference Range Interpretation Comments Hct (test code = Hct) 39.1 36.0-48.0 [facility] DallasUesmsfyNHPXWKZSDL4562-17-36 02:01:00 Test Item Value Reference Range Interpretation Comments Hgb (test code = Hgb) 13.0 12.0-16.0 [facility] DallasEnwqcdvUYFRAEVYNL8189-22-47 02:01:00 Test Item Value Reference Range Interpretation Comments MCV (test code = MCV) 88.8 80.0-98.0 [facility] DallasYlyakohTTNTIMZNJF5379-13-15 02:01:00 Test Item Value Reference Range Interpretation Comments RDW (test code = RDW) 14.3 11.5-14.5 [facility] DallasFeppierYSYHADUSNK5858-13-24 02:01:00 Test Item Value Reference Range Interpretation Comments RBC (test code = RBC) 4.40 4.20-5.40 [place] [address]-12-30 02:01:00 Test Item Value Reference Range Interpretation Comments WBC (test code = WBC) 9.1 3.7-10.4 [facility] DallasXitpvaeHENPKCSDDE1705-32-84 02:01:00 Test Item Value Reference Range Interpretation Comments MCH (test code = MCH) 29.6 pg 27.0-31.0 [facility] DallasXcbcanlPQAOIHNLZB1019-04-63 02:01:00 Test Item Value Reference Range Interpretation Comments MCHC (test code = MCHC) 33.3 32.0-36.0 [facility] DallasQczemunOHSMWWBUNG1341-20-17 02:01:00 Test Item Value Reference Range Interpretation Comments PT (test code = PT) 12.6 s 12.0-14.7 [facility] DallasDvlotaaCWMOEUKEXX8571-94-59 02:01:00 Test Item Value Reference Range Interpretation Comments INR (test code = INR) 0.91 0.85-1.17 [facility] DallasNdbsihfOTKVKDOFXH6938-77-94 02:01:00 Test Item Value Reference Range Interpretation Comments PTT (test code = PTT) 31.6 s 22.9-35.8 [facility]KMCWQOJR8266[facility]39-47 02:01:00 Test Item Value Reference Range Interpretation Comments [place]-Hep C Ab (test Negative *NA*(04/19/15 code = [place]-Hep C 8:01 PM) Ab) [facility] AND [id number] 02:01:00 Test Item Value Reference Range Interpretation Comments UA Spec Grav (test *NA*(04/19/15 8:01 PM) code = UA Spec Grav) [facility] AND [id number] 02:01:00 Test Item Value Reference Range Interpretation Comments UA pH (test code = UA pH) 6.0 1 5.0-8.0 [facility] AND [id number] 02:01:00 Test Item Value Reference Range Interpretation Comments UA Protein (test code Negative (04/19/15 8:01 = UA Protein) PM) [facility] AND [id number] 02:01:00 Test Item Value Reference Range Interpretation Comments UA Glucose (test code Negative (04/19/15 8:01 = UA Glucose) PM) [facility] AND [id number] 02:01:00 Test Item Value Reference Range Interpretation Comments UA Color (test code = Yellow *NA*(04/19/15 UA Color) 8:01 PM) [facility] AND [id number] 02:01:00 Test Item Value Reference Range Interpretation Comments UA Turbidity (test code = Clear (04/19/15 8:01 UA Turbidity) PM) [facility] AND [id number] 02:01:00 Test Item Value Reference Range Interpretation Comments UA Blood (test code = Negative (04/19/15 8:01 UA Blood) PM) [facility] AND [id number] 02:01:00 Test Item Value Reference Range Interpretation Comments UA Nitrite (test code Negative (04/19/15 8:01 = UA Nitrite) PM) [facility] AND [id number] 02:01:00 Test Item Value Reference Range Interpretation Comments UA Bili (test code = Negative *NA*(04/19/15 UA Bili) 8:01 PM) [facility] AND [id number] 02:01:00 Test Item Value Reference Range Interpretation Comments UA Urobilinogen (test code = UA 0.2 0.1-1.0 Urobilinogen) [facility] AND [id number] 02:01:00 Test Item Value Reference Range Interpretation Comments UA Ketones (test code Negative *NA*(04/19/15 = UA Ketones) 8:01 PM) [facility] AND [id number] 02:01:00 Test Item Value Reference Range Interpretation Comments UA Sq Epi (test code = None Seen (04/19/15 UA Sq Epi) 8:01 PM) [facility] AND [id number] 02:01:00 Test Item Value Reference Range Interpretation Comments UA WBC (test code = UA None Seen (04/19/15 WBC) 8:01 PM) [facility] AND [id number] 02:01:00 Test Item Value Reference Range Interpretation Comments UA RBC (test None Seen See_Comment [Automated mes anthony] code = UA RBC) (04/19/15 8:01 The system which PM) generated this result transmitted ref erence range: <=2. The reference range was not used to int erpret this result as normal/abnormal . [facility] AND [id number] 16:50:00 Test Item Value Reference Range Interpretation Comments UA Sq Epi (test code = None Seen (04/08/15 UA Sq Epi) 10:50 AM) [facility] AND [id number] 16:50:00 Test Item Value Reference Range Interpretation Comments UA RBC (test None Seen See_Comment [Automated mes anthony] code = UA RBC) (04/08/15 10:50 The system which AM) generated this result transmitted ref erence range: <=2. The reference range was not used to int erpret this result as normal/abnormal . [facility] AND [id number] 16:50:00 Test Item Value Reference Range Interpretation Comments UA WBC (test code = UA None Seen (04/08/15 WBC) 10:50 AM) [facility] AND [id number] 16:50:00 Test Item Value Reference Range Interpretation Comments UA Bacteria (test code = None Seen (04/08/15 UA Bacteria) 10:50 AM) [facility] AND [id number] 16:50:00 Test Item Value Reference Range Interpretation Comments UA Leuk Est (test Negative (04/08/15 10:50 code = UA Leuk Est) AM) [facility] AND [id number] 16:50:00 Test Item Value Reference Range Interpretation Comments UA Nitrite (test code Negative (04/08/15 = UA Nitrite) 10:50 AM) [facility] AND [id number] 16:50:00 Test Item Value Reference Range Interpretation Comments UA Urobilinogen (test code = UA 0.2 0.1-1.0 Urobilinogen) [facility] AND [id number] 16:50:00 Test Item Value Reference Range Interpretation Comments UA Protein (test code = UA Negative mg/dL Protein) [facility] [id number] 16:50:00 Test Item Value Reference Range Interpretation Comments UA pH (test code = UA pH) 5.5 1 5.0-8.0 [facility] [id number] 16:50:00 Test Item Value Reference Range Interpretation Comments UA Glucose (test code = UA Negative mg/dL Glucose) [facility] AND [id number] 16:50:00 Test Item Value Reference Range Interpretation Comments UA Spec Grav (test code = UA Spec 1.010 1 Grav) [facility] [id number] 16:50:00 Test Item Value Reference Range Interpretation Comments UA Turbidity (test code = Clear (04/08/15 UA Turbidity) 10:50 AM) [facility] [id number] 16:50:00 Test Item Value Reference Range Interpretation Comments UA Ketones (test code = UA Negative mg/dL Ketones) [facility] [id number] 16:50:00 Test Item Value Reference Range Interpretation Comments UA Blood (test code = Negative (04/08/15 10:50 UA Blood) AM) [facility] [id number] 16:50:00 Test Item Value Reference Range Interpretation Comments UA Bili (test code = Negative *NA*(04/08/15 UA Bili) 10:50 AM) [facility] [id number] 16:50:00 Test Item Value Reference Range Interpretation Comments UA Color (test code = Yellow *NA*(04/08/15 UA Color) 10:50 AM) [facility] [id number] 16:50:00 Test Item Value Reference Range Interpretation Comments UA Sq Epi (test code = None Seen (04/08/15 UA Sq Epi) 10:50 AM) [facility] [id number] 16:50:00 Test Item Value Reference Range Interpretation Comments UA RBC (test None Seen See_Comment [Automated mes anthony] code = UA RBC) (04/08/15 10:50 The system which AM) generated this result transmitted ref erence range: <=2. The reference range was not used to int erpret this result as normal/abnormal . [facility] [id number] 16:50:00 Test Item Value Reference Range Interpretation Comments UA WBC (test code = UA None Seen (04/08/15 WBC) 10:50 AM) [facility] [id number] 16:50:00 Test Item Value Reference Range Interpretation Comments UA Bacteria (test code = None Seen (04/08/15 UA Bacteria) 10:50 AM) [facility] [id number] 16:50:00 Test Item Value Reference Range Interpretation Comments UA Leuk Est (test Negative (04/08/15 10:50 code = UA Leuk Est) AM) [facility] AND [id number] 16:50:00 Test Item Value Reference Range Interpretation Comments UA Nitrite (test code Negative (04/08/15 = UA Nitrite) 10:50 AM) [facility] AND [id number] 16:50:00 Test Item Value Reference Range Interpretation Comments UA Urobilinogen (test code = UA 0.2 0.1-1.0 Urobilinogen) [facility] AND [id number] 16:50:00 Test Item Value Reference Range Interpretation Comments UA Protein (test code = UA Negative mg/dL Protein) [facility] AND [id number] 16:50:00 Test Item Value Reference Range Interpretation Comments UA pH (test code = UA pH) 5.5 1 5.0-8.0 [facility] AND [id number] 16:50:00 Test Item Value Reference Range Interpretation Comments UA Glucose (test code = UA Negative mg/dL Glucose) [facility] AND [id number] 16:50:00 Test Item Value Reference Range Interpretation Comments UA Spec Grav (test code = UA Spec 1.010 1 Grav) [facility] AND [id number] 16:50:00 Test Item Value Reference Range Interpretation Comments UA Turbidity (test code = Clear (04/08/15 UA Turbidity) 10:50 AM) [facility] AND [id number] 16:50:00 Test Item Value Reference Range Interpretation Comments UA Ketones (test code = UA Negative mg/dL Ketones) [facility] AND [id number] 16:50:00 Test Item Value Reference Range Interpretation Comments UA Blood (test code = Negative (04/08/15 10:50 UA Blood) AM) [facility] AND [id number] 16:50:00 Test Item Value Reference Range Interpretation Comments UA Bili (test code = Negative *NA*(04/08/15 UA Bili) 10:50 AM) [facility] AND [id number] 16:50:00 Test Item Value Reference Range Interpretation Comments UA Color (test code = Yellow *NA*(04/08/15 UA Color) 10:50 AM) [facility] AND [id number] 16:50:00 Test Item Value Reference Range Interpretation Comments UA Sq Epi (test code = None Seen (04/08/15 UA Sq Epi) 10:50 AM) [facility] AND [id number] 16:50:00 Test Item Value Reference Range Interpretation Comments UA RBC (test None Seen See_Comment [Automated mes anthony] code = UA RBC) (04/08/15 10:50 The system which AM) generated this result transmitted ref erence range: <=2. The reference range was not used to int erpret this result as normal/abnormal . [facility] AND [id number] 16:50:00 Test Item Value Reference Range Interpretation Comments UA WBC (test code = UA None Seen (04/08/15 WBC) 10:50 AM) [facility] AND [id number] 16:50:00 Test Item Value Reference Range Interpretation Comments UA Bacteria (test code = None Seen (04/08/15 UA Bacteria) 10:50 AM) [facility] AND [id number] 16:50:00 Test Item Value Reference Range Interpretation Comments UA Leuk Est (test Negative (04/08/15 10:50 code = UA Leuk Est) AM) [facility] AND [id number] 16:50:00 Test Item Value Reference Range Interpretation Comments UA Nitrite (test code Negative (04/08/15 = UA Nitrite) 10:50 AM) [facility] AND [id number] 16:50:00 Test Item Value Reference Range Interpretation Comments UA Urobilinogen (test code = UA 0.2 0.1-1.0 Urobilinogen) [facility] AND [id number] 16:50:00 Test Item Value Reference Range Interpretation Comments UA Protein (test code = UA Negative mg/dL Protein) [facility] AND [id number] 16:50:00 Test Item Value Reference Range Interpretation Comments UA pH (test code = UA pH) 5.5 1 5.0-8.0 [facility] [id number] 16:50:00 Test Item Value Reference Range Interpretation Comments UA Glucose (test code = UA Negative mg/dL Glucose) [facility] AND [id number] 16:50:00 Test Item Value Reference Range Interpretation Comments UA Spec Grav (test code = UA Spec 1.010 1 Grav) [facility] [id number] 16:50:00 Test Item Value Reference Range Interpretation Comments UA Turbidity (test code = Clear (04/08/15 UA Turbidity) 10:50 AM) [facility] [id number] 16:50:00 Test Item Value Reference Range Interpretation Comments UA Ketones (test code = UA Negative mg/dL Ketones) [facility] [id number] 16:50:00 Test Item Value Reference Range Interpretation Comments UA Blood (test code = Negative (04/08/15 10:50 UA Blood) AM) [facility] [id number] 16:50:00 Test Item Value Reference Range Interpretation Comments UA Bili (test code = Negative *NA*(04/08/15 UA Bili) 10:50 AM) [facility] [id number] 16:50:00 Test Item Value Reference Range Interpretation Comments UA Color (test code = Yellow *NA*(04/08/15 UA Color) 10:50 AM) [facility] [id number] 16:39:35 Test Item Value Reference Range Interpretation Comments Occult Bld Stl (test Positive *ABN*(04/08/15 code = Occult Bld Stl) 10:39 AM) [facility] [id number] 16:39:35 Test Item Value Reference Range Interpretation Comments Fecal Leukocyte (test None Seen (04/08/15 code = Fecal Leukocyte) 10:39 AM) [facility] [id number] 16:39:35 Test Item Value Reference Range Interpretation Comments Occult Bld Stl (test Positive *ABN*(04/08/15 code = Occult Bld Stl) 10:39 AM) [facility] [id number] 16:39:35 Test Item Value Reference Range Interpretation Comments Fecal Leukocyte (test None Seen (04/08/15 code = Fecal Leukocyte) 10:39 AM) [facility] [id number] 16:39:35 Test Item Value Reference Range Interpretation Comments Occult Bld Stl (test Positive *ABN*(04/08/15 code = Occult Bld Stl) 10:39 AM) [facility] AND [id number] 16:39:35 Test Item Value Reference Range Interpretation Comments Fecal Leukocyte (test None Seen (04/08/15 code = Fecal Leukocyte) 10:39 AM) [facility] [id number] 15:07:00 Test Item Value Reference Range Interpretation Comments A/G Ratio (test code = A/G Ratio) 1.2 0.7-1.6 [facility] [id number] 15:07:00 Test Item Value Reference Range Interpretation Comments Globulin (test code = Globulin) 3.2 2.0-4.0 [facility] [id number] 15:07:00 Test Item Value Reference Range Interpretation Comments AGAP (test code = AGAP) 14.8 10.0-20.0 [facility]2015-12-18 15:07:00 Test Item Value Reference Range Interpretation Comments B/C Ratio (test code = B/C Ratio) 9 6-25 [facility] [id number] 15:07:00 Test Item Value Reference Range Interpretation Comments eGFR (test code = eGFR) 77 [facility]2015-12-18 15:07:00 Test Item Value Reference Range Interpretation Comments CO2 (test code = CO2) 24 24-32 [facility] [id number] 15:07:00 Test Item Value Reference Range Interpretation Comments Albumin Lvl (test code = Albumin Lvl) 3.7 3.5-5.0 [facility]2015-12-18 15:07:00 Test Item Value Reference Range Interpretation Comments Calcium Lvl (test code = Calcium Lvl) 10.0 8.5-10.5 [facility]2015-12-18 15:07:00 Test Item Value Reference Range Interpretation Comments Total Protein (test code = Total 6.9 6.4-8.4 Protein) [facility]2015-12-18 15:07:00 Test Item Value Reference Range Interpretation Comments Alk Phos (test code = Alk Phos) 80 39-136 [facility]2015-12-18 15:07:00 Test Item Value Reference Range Interpretation Comments Bili Total (test code = Bili Total) 0.3 0.2-1.3 [place] [id number] 15:07:00 Test Item Value Reference Range Interpretation Comments AST (test code = AST) 13 See_Comment [Auto mated message] The system which ge nerated this result transmit mele reference range : <=37. The reference range was not used to interpr et this result as edgardo l/abnormal. [facility]2015-12-18 15:07:00 Test Item Value Reference Range Interpretation Comments ALT (test code = ALT) 28 See_Comment [Auto mated message] The system which ge nerated this result transmit mele reference range : <=65. The reference range was not used to interpr et this result as edgardo l/abnormal. [place] [id number] 15:07:00 Test Item Value Reference Range Interpretation Comments Potassium Lvl (test code = Potassium 3.8 3.5-5.1 Lvl) [facility]2015-12-18 15:07:00 Test Item Value Reference Range Interpretation Comments Sodium Lvl (test code = Sodium Lvl) 132 135-145 [facility]2015-12-18 15:07:00 Test Item Value Reference Range Interpretation Comments Chloride Lvl (test code = Chloride Lvl) 97 95-109 [facility]2015-12-18 15:07:00 Test Item Value Reference Range Interpretation Comments Glucose Lvl (test code = Glucose Lvl) 158 70-99 [facility]2015-12-18 15:07:00 Test Item Value Reference Range Interpretation Comments Creatinine Lvl (test code = Creatinine 0.79 0.50-1.40 Lvl) [facility]2015-12-18 15:07:00 Test Item Value Reference Range Interpretation Comments BUN (test code = BUN) 7 7-22 [id number] 15:07:00 Test Item Value Reference Range Interpretation Comments Platelet (test code = Platelet) 248 133-450 [facility] DallasYjoktsyILSHWJFURY2362-33-64 15:07:00 Test Item Value Reference Range Interpretation Comments RDW (test code = RDW) 14.3 11.5-14.5 [facility] [id number] 15:07:00 Test Item Value Reference Range Interpretation Comments MPV (test code = MPV) 7.7 7.4-10.4 [facility] DallasCiojrtcAALHDRSRFA9265-42-46 15:07:00 Test Item Value Reference Range Interpretation Comments MCV (test code = MCV) 88.9 80.0-98.0 [facility] DallasJjzchthHIXKFKSCCW4472-55-11 15:07:00 Test Item Value Reference Range Interpretation Comments Hct (test code = Hct) 41.6 36.0-48.0 [facility] DallasYtaajmnYDBPZVPCDV6397-18-11 15:07:00 Test Item Value Reference Range Interpretation Comments MCHC (test code = MCHC) 32.4 32.0-36.0 [place] 766845-12-18 15:07:00 Test Item Value Reference Range Interpretation Comments MCH (test code = MCH) 28.8 pg 27.0-31.0 [facility] DallasZkdxttvAXBOCZTMYQ5326-92-48 15:07:00 Test Item Value Reference Range Interpretation Comments WBC (test code = WBC) 7.9 3.7-10.4 [facility] DallasLpbwmwzTZDFKOQOEP1813-72-29 15:07:00 Test Item Value Reference Range Interpretation Comments RBC (test code = RBC) 4.68 4.20-5.40 [place] 766845-12-18 15:07:00 Test Item Value Reference Range Interpretation Comments Hgb (test code = Hgb) 13.5 12.0-16.0 [facility] DallasAgmqmgeGULCSIJGBR3504-73-85 15:07:00 Test Item Value Reference Range Interpretation Comments Lymphocytes (test code = Lymphocytes) 26.6 20.0-40.0 [facility] DallasJcqfxdnWCAEBMSEWU9108-76-43 15:07:00 Test Item Value Reference Range Interpretation Comments Monocytes (test code = Monocytes) 4.9 2.0-12.0 [place] 766845-12-18 15:07:00 Test Item Value Reference Range Interpretation Comments Eosinophils (test code = 1.2 See_Comment [A utomated message] The Eosinophils) system which ge nerated this result tra nsmitted reference range : <=4.0. The reference r lisa was not used to int erpret this result as normal/abnormal . [facility] DallasMdhtjqgYZJABZGZOP0913-77-64 15:07:00 Test Item Value Reference Range Interpretation Comments Basophils (test code = 0.9 See_Comment [Aut omated message] The Basophils) system which ge nerated this result tra nsmitted reference range : <=1.0. The reference r lisa was not used to int erpret this result as normal/abnormal . [facility] DallasXdeofztLXDGLLVYKO2174-10-69 15:07:00 Test Item Value Reference Range Interpretation Comments Segs (test code = Segs) 66.4 45.0-75.0 [facility]QflvnwyUXAMSMQOZT0970-62-18 15:07:00 Test Item Value Reference Range Interpretation Comments Segs-Bands # (test code = Segs-Bands #) 5.2 1.5-8.1 [facility] DallasWnlpjydVCYEOUNAYW4984-96-23 15:07:00 Test Item Value Reference Range Interpretation Comments Lymphocytes # (test code = Lymphocytes 2.1 1.0-5.5 #) [facility] DallasVgkayvsKJXGZYUOKN2695-35-08 15:07:00 Test Item Value Reference Range Interpretation Comments Basophils # (test code 0.1 See_Comment [Aut omated message] The = Basophils #) system which generated this result tra nsmitted reference range : <=0.2. The reference r lisa was not used to int erpret this result as normal/abnormal . [facility] DallasNyknkqhIPNKNCTAKA6172-60-45 15:07:00 Test Item Value Reference Range Interpretation Comments Eosinophils # (test code 0.1 See_Comment [A utomated message] The = Eosinophils #) system whic h generated this result tra nsmitted reference range : <=0.5. The reference r lisa was not used to int erpret this result as normal/abnormal . [facility] DallasOaasmniQVRDXENNZZ8135-44-13 15:07:00 Test Item Value Reference Range Interpretation Comments Monocytes # (test code 0.4 See_Comment [Aut omated message] The = Monocytes #) system which generated this result tra nsmitted reference range : <=0.8. The reference r lisa was not used to int erpret this result as normal/abnormal . [facility] [id number] 15:07:00 Test Item Value Reference Range Interpretation Comments A/G Ratio (test code = A/G Ratio) 1.2 0.7-1.6 [facility] [id number] 15:07:00 Test Item Value Reference Range Interpretation Comments Globulin (test code = Globulin) 3.2 2.0-4.0 [facility]2015-12-18 15:07:00 Test Item Value Reference Range Interpretation Comments AGAP (test code = AGAP) 14.8 10.0-20.0 [place] 974815-12-18 15:07:00 Test Item Value Reference Range Interpretation Comments B/C Ratio (test code = B/C Ratio) 9 6-25 [place] 974815-12-18 15:07:00 Test Item Value Reference Range Interpretation Comments eGFR (test code = eGFR) 77 [place] 974815-12-18 15:07:00 Test Item Value Reference Range Interpretation Comments CO2 (test code = CO2) 24 24-32 [place] 974815-12-18 15:07:00 Test Item Value Reference Range Interpretation Comments Albumin Lvl (test code = Albumin Lvl) 3.7 3.5-5.0 [place] 974815-12-18 15:07:00 Test Item Value Reference Range Interpretation Comments Calcium Lvl (test code = Calcium Lvl) 10.0 8.5-10.5 [place] 974815-12-18 15:07:00 Test Item Value Reference Range Interpretation Comments Total Protein (test code = Total 6.9 6.4-8.4 Protein) [facility]2015-12-18 15:07:00 Test Item Value Reference Range Interpretation Comments Alk Phos (test code = Alk Phos) 80 39-136 [place] 974815-12-18 15:07:00 Test Item Value Reference Range Interpretation Comments Bili Total (test code = Bili Total) 0.3 0.2-1.3 [place] 974815-12-18 15:07:00 Test Item Value Reference Range Interpretation Comments AST (test code = AST) 13 See_Comment [Auto mated message] The system which ge nerated this result transmit mele reference range : <=37. The reference range was not used to interpr et this result as edgardo l/abnormal. [place] 974815-12-18 15:07:00 Test Item Value Reference Range Interpretation Comments ALT (test code = ALT) 28 See_Comment [Auto mated message] The system which ge nerated this result transmit mele reference range : <=65. The reference range was not used to interpr et this result as edgardo l/abnormal. [facility]2015-12-18 15:07:00 Test Item Value Reference Range Interpretation Comments Potassium Lvl (test code = Potassium 3.8 3.5-5.1 Lvl) [facility]2015-12-18 15:07:00 Test Item Value Reference Range Interpretation Comments Sodium Lvl (test code = Sodium Lvl) 132 135-145 [facility]2015-12-18 15:07:00 Test Item Value Reference Range Interpretation Comments Chloride Lvl (test code = Chloride Lvl) 97 95-109 [facility]2015-12-18 15:07:00 Test Item Value Reference Range Interpretation Comments Glucose Lvl (test code = Glucose Lvl) 158 70-99 [facility]2015-12-18 15:07:00 Test Item Value Reference Range Interpretation Comments Creatinine Lvl (test code = Creatinine 0.79 0.50-1.40 Lvl) [facility]2015-12-18 15:07:00 Test Item Value Reference Range Interpretation Comments BUN (test code = BUN) 7 7-22 [facility] DallasOgobwdwOOALPNXXLC0869-90-77 15:07:00 Test Item Value Reference Range Interpretation Comments Platelet (test code = Platelet) 248 133-450 [facility] DallasWtweqspLMJMKYBXZG2772-00-73 15:07:00 Test Item Value Reference Range Interpretation Comments RDW (test code = RDW) 14.3 11.5-14.5 [facility] DallasLctjslgLYMHQFNTNG0481-01-44 15:07:00 Test Item Value Reference Range Interpretation Comments MPV (test code = MPV) 7.7 7.4-10.4 [facility] DallasKtclsciYAIEVDGVPS2512-18-45 15:07:00 Test Item Value Reference Range Interpretation Comments MCV (test code = MCV) 88.9 80.0-98.0 [facility] DallasUxabyooDTYDCSJQAD1347-24-46 15:07:00 Test Item Value Reference Range Interpretation Comments Hct (test code = Hct) 41.6 36.0-48.0 [facility] DallasVxofnbmSSVSSVOUBI0929-18-84 15:07:00 Test Item Value Reference Range Interpretation Comments MCHC (test code = MCHC) 32.4 32.0-36.0 [facility] DallasAulmcnoRNPARAZQUP1492-91-50 15:07:00 Test Item Value Reference Range Interpretation Comments MCH (test code = MCH) 28.8 pg 27.0-31.0 [facility] DallasRljsvkjUIEBXXCVKY3564-92-34 15:07:00 Test Item Value Reference Range Interpretation Comments WBC (test code = WBC) 7.9 3.7-10.4 [facility] DallasEbqkiimGJYUQUAAPD9666-68-48 15:07:00 Test Item Value Reference Range Interpretation Comments RBC (test code = RBC) 4.68 4.20-5.40 [facility] DallasIfoussmUISRLOWIYK1972-41-93 15:07:00 Test Item Value Reference Range Interpretation Comments Hgb (test code = Hgb) 13.5 12.0-16.0 [facility] DallasVkfpjbwSVSPXOPKVE2245-09-00 15:07:00 Test Item Value Reference Range Interpretation Comments Lymphocytes (test code = Lymphocytes) 26.6 20.0-40.0 [facility] DallasFmfharlHQSYDXRXBK3317-56-91 15:07:00 Test Item Value Reference Range Interpretation Comments Monocytes (test code = Monocytes) 4.9 2.0-12.0 [facility] DallasFiuluysIDMUNVKTOQ1237-98-68 15:07:00 Test Item Value Reference Range Interpretation Comments Eosinophils (test code = 1.2 See_Comment [A utomated message] The Eosinophils) system which ge nerated this result tra nsmitted reference range : <=4.0. The reference r lisa was not used to int erpret this result as normal/abnormal . [facility] DallasUkblrnzERRYLZTAXJ5607-74-80 15:07:00 Test Item Value Reference Range Interpretation Comments Basophils (test code = 0.9 See_Comment [Aut omated message] The Basophils) system which ge nerated this result tra nsmitted reference range : <=1.0. The reference r lisa was not used to int erpret this result as normal/abnormal . [facility] DallasScazuhkBMUBIWFTOO5561-88-61 15:07:00 Test Item Value Reference Range Interpretation Comments Segs (test code = Segs) 66.4 45.0-75.0 [facility] DallasXsgaemlOBGBEGOTOI0494-80-06 15:07:00 Test Item Value Reference Range Interpretation Comments Segs-Bands # (test code = Segs-Bands #) 5.2 1.5-8.1 [facility] DallasGbloppxURCZWRXEXY5196-35-12 15:07:00 Test Item Value Reference Range Interpretation Comments Lymphocytes # (test code = Lymphocytes 2.1 1.0-5.5 #) [facility] DallasAitjfepBCSTNKBNMN4980-45-90 15:07:00 Test Item Value Reference Range Interpretation Comments Basophils # (test code 0.1 See_Comment [Aut omated message] The = Basophils #) system which generated this result tra nsmitted reference range : <=0.2. The reference r lisa was not used to int erpret this result as normal/abnormal . [facility] DallasHbsujhzQKRPZIDVJU6406-01-73 15:07:00 Test Item Value Reference Range Interpretation Comments Eosinophils # (test code 0.1 See_Comment [A utomated message] The = Eosinophils #) system whic h generated this result tra nsmitted reference range : <=0.5. The reference r lisa was not used to int erpret this result as normal/abnormal . [facility] DallasWjhfllyHLXDZPVGJS9250-09-72 15:07:00 Test Item Value Reference Range Interpretation Comments Monocytes # (test code 0.4 See_Comment [Aut omated message] The = Monocytes #) system which generated this result tra nsmitted reference range : <=0.8. The reference r lisa was not used to int erpret this result as normal/abnormal . [facility]2015-12-18 15:07:00 Test Item Value Reference Range Interpretation Comments A/G Ratio (test code = A/G Ratio) 1.2 0.7-1.6 [place] 974815-12-18 15:07:00 Test Item Value Reference Range Interpretation Comments Globulin (test code = Globulin) 3.2 2.0-4.0 [facility]2015-12-18 15:07:00 Test Item Value Reference Range Interpretation Comments AGAP (test code = AGAP) 14.8 10.0-20.0 [facility]2015-12-18 15:07:00 Test Item Value Reference Range Interpretation Comments B/C Ratio (test code = B/C Ratio) 9 6-25 [facility]2015-12-18 15:07:00 Test Item Value Reference Range Interpretation Comments eGFR (test code = eGFR) 77 [facility]2015-12-18 15:07:00 Test Item Value Reference Range Interpretation Comments CO2 (test code = CO2) 24 24-32 [place] 974815-12-18 15:07:00 Test Item Value Reference Range Interpretation Comments Albumin Lvl (test code = Albumin Lvl) 3.7 3.5-5.0 [facility]2015-12-18 15:07:00 Test Item Value Reference Range Interpretation Comments Calcium Lvl (test code = Calcium Lvl) 10.0 8.5-10.5 [facility]2015-12-18 15:07:00 Test Item Value Reference Range Interpretation Comments Total Protein (test code = Total 6.9 6.4-8.4 Protein) [facility]2015-12-18 15:07:00 Test Item Value Reference Range Interpretation Comments Alk Phos (test code = Alk Phos) 80 39-136 [facility]2015-12-18 15:07:00 Test Item Value Reference Range Interpretation Comments Bili Total (test code = Bili Total) 0.3 0.2-1.3 [place] 974815-12-18 15:07:00 Test Item Value Reference Range Interpretation Comments AST (test code = AST) 13 See_Comment [Auto mated message] The system which ge nerated this result transmit mele reference range : <=37. The reference range was not used to interpr et this result as edgardo l/abnormal. [facility]2015-12-18 15:07:00 Test Item Value Reference Range Interpretation Comments ALT (test code = ALT) 28 See_Comment [Auto mated message] The system which ge nerated this result transmit mele reference range : <=65. The reference range was not used to interpr et this result as edgardo l/abnormal. [facility]2015-12-18 15:07:00 Test Item Value Reference Range Interpretation Comments Potassium Lvl (test code = Potassium 3.8 3.5-5.1 Lvl) [facility]2015-12-18 15:07:00 Test Item Value Reference Range Interpretation Comments Sodium Lvl (test code = Sodium Lvl) 132 135-145 [facility]2015-12-18 15:07:00 Test Item Value Reference Range Interpretation Comments Chloride Lvl (test code = Chloride Lvl) 97 95-109 [facility]2015-12-18 15:07:00 Test Item Value Reference Range Interpretation Comments Glucose Lvl (test code = Glucose Lvl) 158 70-99 [facility]2015-12-18 15:07:00 Test Item Value Reference Range Interpretation Comments Creatinine Lvl (test code = Creatinine 0.79 0.50-1.40 Lvl) [facility]2015-12-18 15:07:00 Test Item Value Reference Range Interpretation Comments BUN (test code = BUN) 7 7-22 [facility] DallasGjdpferRLHHYRGCIO9850-14-98 15:07:00 Test Item Value Reference Range Interpretation Comments Platelet (test code = Platelet) 248 133-450 [facility] DallasYtpkzenDIYWQVJNUI4496-16-68 15:07:00 Test Item Value Reference Range Interpretation Comments RDW (test code = RDW) 14.3 11.5-14.5 [facility] DallasFixrxdqWJEQSOJJTU8475-20-23 15:07:00 Test Item Value Reference Range Interpretation Comments MPV (test code = MPV) 7.7 7.4-10.4 [facility] DallasPjaodutKJNVRAXGZH2061-77-06 15:07:00 Test Item Value Reference Range Interpretation Comments MCV (test code = MCV) 88.9 80.0-98.0 [facility] DallasWyyvrrjAHDJSPMQPA7923-50-60 15:07:00 Test Item Value Reference Range Interpretation Comments Hct (test code = Hct) 41.6 36.0-48.0 [facility] DallasZmcahehSJIBQEQCLE4630-08-50 15:07:00 Test Item Value Reference Range Interpretation Comments MCHC (test code = MCHC) 32.4 32.0-36.0 [facility] DallasVefafslPDYQTXLJOL2954-52-29 15:07:00 Test Item Value Reference Range Interpretation Comments MCH (test code = MCH) 28.8 pg 27.0-31.0 [facility] DallasIjcpupnWPMDOVRRBU8935-32-17 15:07:00 Test Item Value Reference Range Interpretation Comments WBC (test code = WBC) 7.9 3.7-10.4 [facility] DallasHlcwyvwLWBAPXASYE1360-62-75 15:07:00 Test Item Value Reference Range Interpretation Comments RBC (test code = RBC) 4.68 4.20-5.40 [facility] DallasIywczgfMGOUFYRYJN5403-39-04 15:07:00 Test Item Value Reference Range Interpretation Comments Hgb (test code = Hgb) 13.5 12.0-16.0 [place] [address]-12-18 15:07:00 Test Item Value Reference Range Interpretation Comments Lymphocytes (test code = Lymphocytes) 26.6 20.0-40.0 [facility] DallasWubcgjzGLGYGYYJAK8811-15-45 15:07:00 Test Item Value Reference Range Interpretation Comments Monocytes (test code = Monocytes) 4.9 2.0-12.0 [facility] DallasHiscihjMKJGHCZNRZ5338-55-61 15:07:00 Test Item Value Reference Range Interpretation Comments Eosinophils (test code = 1.2 See_Comment [A utomated message] The Eosinophils) system which ge nerated this result tra nsmitted reference range : <=4.0. The reference r lisa was not used to int erpret this result as normal/abnormal . [facility] DallasFnokdnsXHMOXNOLHZ9756-87-28 15:07:00 Test Item Value Reference Range Interpretation Comments Basophils (test code = 0.9 See_Comment [Aut omated message] The Basophils) system which ge nerated this result tra nsmitted reference range : <=1.0. The reference r lisa was not used to int erpret this result as normal/abnormal . [facility] DallasJlvlslnCBBDNHXNEW7889-63-36 15:07:00 Test Item Value Reference Range Interpretation Comments Segs (test code = Segs) 66.4 45.0-75.0 [facility] DallasUgtldybTCQQDZZATT9787-20-42 15:07:00 Test Item Value Reference Range Interpretation Comments Segs-Bands # (test code = Segs-Bands #) 5.2 1.5-8.1 [facility] DallasCdzxgbxYXARPRULOK8010-88-84 15:07:00 Test Item Value Reference Range Interpretation Comments Lymphocytes # (test code = Lymphocytes 2.1 1.0-5.5 #) [facility] DallasEeupnloHLTWQCVERO1883-08-83 15:07:00 Test Item Value Reference Range Interpretation Comments Basophils # (test code 0.1 See_Comment [Aut omated message] The = Basophils #) system which generated this result tra nsmitted reference range : <=0.2. The reference r lisa was not used to int erpret this result as normal/abnormal . [facility] DallasYohaccyTGIXDCITRS7140-80-61 15:07:00 Test Item Value Reference Range Interpretation Comments Eosinophils # (test code 0.1 See_Comment [A utomated message] The = Eosinophils #) system whic h generated this result tra nsmitted reference range : <=0.5. The reference r lisa was not used to int erpret this result as normal/abnormal . [facility]PbvzpzzERKECCLQHM7577-64-73 15:07:00 Test Item Value Reference Range Interpretation Comments Monocytes # (test code 0.4 See_Comment [Aut omated message] The = Monocytes #) system which generated this result tra nsmitted reference range : <=0.8. The reference r lisa was not used to int erpret this result as normal/abnormal . [facility] RFXADOTOWJ5340-14-77 16:47:00 Test Item Value Reference Range Interpretation Comments C difficile DNA (test Negative (04/03/15 code = C difficile DNA) 10:47 AM) [facility] [id number] 16:47:00 Test Item Value Reference Range Interpretation Comments Fecal Leukocyte (test None Seen (04/03/15 code = Fecal Leukocyte) 10:47 AM) [facility] RADQBXQHGU8966-73-07 16:47:00 Test Item Value Reference Range Interpretation Comments C difficile DNA (test Negative (04/03/15 code = C difficile DNA) 10:47 AM) [facility] [id number] 16:47:00 Test Item Value Reference Range Interpretation Comments Fecal Leukocyte (test None Seen (04/03/15 code = Fecal Leukocyte) 10:47 AM) [facility] ANHYQDJZVV5396-26-77 16:47:00 Test Item Value Reference Range Interpretation Comments C difficile DNA (test Negative (04/03/15 code = C difficile DNA) 10:47 AM) [facility] [id number] 16:47:00 Test Item Value Reference Range Interpretation Comments Fecal Leukocyte (test None Seen (04/03/15 code = Fecal Leukocyte) 10:47 AM) [facility] [id number] 15:56:00 Test Item Value Reference Range Interpretation Comments UA Nitrite (test code Negative (04/03/15 9:56 = UA Nitrite) AM) [facility] [id number] 15:56:00 Test Item Value Reference Range Interpretation Comments UA Urobilinogen (test code = UA 0.2 0.1-1.0 Urobilinogen) [facility] [id number] 15:56:00 Test Item Value Reference Range Interpretation Comments UA Leuk Est (test Negative (04/03/15 9:56 code = UA Leuk Est) AM) [facility] AND [id number] 15:56:00 Test Item Value Reference Range Interpretation Comments UA Sq Epi (test code = UA Sq Occasional /LPF Epi) [facility] AND [id number] 15:56:00 Test Item Value Reference Range Interpretation Comments UA WBC (test code = UA WBC) 0-2 /HPF [facility] AND [id number] 15:56:00 Test Item Value Reference Range Interpretation Comments UA Bacteria (test code = UA Occasional /HPF Bacteria) [facility] AND [id number] 15:56:00 Test Item Value Reference Range Interpretation Comments UA RBC (test code = 0-2 /HPF See_Comment [Automa mele message] The UA RBC) system which ge nerated this result tra nsmitted reference range : <=2. The reference range was not used to interpr et this result as edgardo l/abnormal. [facility] AND [id number] 15:56:00 Test Item Value Reference Range Interpretation Comments UA Bili (test code = Negative *NA*(04/03/15 UA Bili) 9:56 AM) [facility] AND [id number] 15:56:00 Test Item Value Reference Range Interpretation Comments UA pH (test code = UA pH) 6.0 1 5.0-8.0 [facility] AND [id number] 15:56:00 Test Item Value Reference Range Interpretation Comments UA Protein (test code = UA Protein) 30 mg/dL [facility] AND [id number] 15:56:00 Test Item Value Reference Range Interpretation Comments UA Ketones (test code Negative *NA*(04/03/15 = UA Ketones) 9:56 AM) [facility] AND [id number] 15:56:00 Test Item Value Reference Range Interpretation Comments UA Glucose (test code Negative (04/03/15 9:56 = UA Glucose) AM) [facility] AND [id number] 15:56:00 Test Item Value Reference Range Interpretation Comments UA Blood (test code = Negative (04/03/15 9:56 UA Blood) AM) [facility] AND [id number] 15:56:00 Test Item Value Reference Range Interpretation Comments UA Color (test code = Yellow *NA*(04/03/15 UA Color) 9:56 AM) [facility] AND [id number] 15:56:00 Test Item Value Reference Range Interpretation Comments UA Turbidity (test code = Clear (04/03/15 9:56 UA Turbidity) AM) [facility] AND [id number] 15:56:00 Test Item Value Reference Range Interpretation Comments UA Spec Grav (test code = UA Spec 1.020 1 Grav) [facility] AND [id number] 15:56:00 Test Item Value Reference Range Interpretation Comments UA Nitrite (test code Negative (04/03/15 9:56 = UA Nitrite) AM) [facility] AND [id number] 15:56:00 Test Item Value Reference Range Interpretation Comments UA Urobilinogen (test code = UA 0.2 0.1-1.0 Urobilinogen) [facility] AND [id number] 15:56:00 Test Item Value Reference Range Interpretation Comments UA Leuk Est (test Negative (04/03/15 9:56 code = UA Leuk Est) AM) [facility] AND [id number] 15:56:00 Test Item Value Reference Range Interpretation Comments UA Sq Epi (test code = UA Sq Occasional /LPF Epi) [facility] AND [id number] 15:56:00 Test Item Value Reference Range Interpretation Comments UA WBC (test code = UA WBC) 0-2 /HPF [facility] AND [id number] 15:56:00 Test Item Value Reference Range Interpretation Comments UA Bacteria (test code = UA Occasional /HPF Bacteria) [facility] AND [id number] 15:56:00 Test Item Value Reference Range Interpretation Comments UA RBC (test code = 0-2 /HPF See_Comment [Automa mele message] The UA RBC) system which ge nerated this result tra nsmitted reference range : <=2. The reference range was not used to interpr et this result as edgardo l/abnormal. [facility] AND [id number] 15:56:00 Test Item Value Reference Range Interpretation Comments UA Bili (test code = Negative *NA*(04/03/15 UA Bili) 9:56 AM) [facility] AND [id number] 15:56:00 Test Item Value Reference Range Interpretation Comments UA pH (test code = UA pH) 6.0 1 5.0-8.0 [facility] AND [id number] 15:56:00 Test Item Value Reference Range Interpretation Comments UA Protein (test code = UA Protein) 30 mg/dL [facility] AND [id number] 15:56:00 Test Item Value Reference Range Interpretation Comments UA Ketones (test code Negative *NA*(04/03/15 = UA Ketones) 9:56 AM) [facility] AND [id number] 15:56:00 Test Item Value Reference Range Interpretation Comments UA Glucose (test code Negative (04/03/15 9:56 = UA Glucose) AM) [facility] AND [id number] 15:56:00 Test Item Value Reference Range Interpretation Comments UA Blood (test code = Negative (04/03/15 9:56 UA Blood) AM) [facility] AND [id number] 15:56:00 Test Item Value Reference Range Interpretation Comments UA Color (test code = Yellow *NA*(04/03/15 UA Color) 9:56 AM) [facility] AND [id number] 15:56:00 Test Item Value Reference Range Interpretation Comments UA Turbidity (test code = Clear (04/03/15 9:56 UA Turbidity) AM) [facility] AND [id number] 15:56:00 Test Item Value Reference Range Interpretation Comments UA Spec Grav (test code = UA Spec 1.020 1 Grav) [facility] AND [id number] 15:56:00 Test Item Value Reference Range Interpretation Comments UA Nitrite (test code Negative (04/03/15 9:56 = UA Nitrite) AM) [facility] AND [id number] 15:56:00 Test Item Value Reference Range Interpretation Comments UA Urobilinogen (test code = UA 0.2 0.1-1.0 Urobilinogen) [facility] AND [id number] 15:56:00 Test Item Value Reference Range Interpretation Comments UA Leuk Est (test Negative (04/03/15 9:56 code = UA Leuk Est) AM) [facility] AND [id number] 15:56:00 Test Item Value Reference Range Interpretation Comments UA Sq Epi (test code = UA Sq Occasional /LPF Epi) [facility] AND [id number] 15:56:00 Test Item Value Reference Range Interpretation Comments UA WBC (test code = UA WBC) 0-2 /HPF [facility] AND [id number] 15:56:00 Test Item Value Reference Range Interpretation Comments UA Bacteria (test code = UA Occasional /HPF Bacteria) [facility] AND [id number] 15:56:00 Test Item Value Reference Range Interpretation Comments UA RBC (test code = 0-2 /HPF See_Comment [Automa mele message] The UA RBC) system which ge nerated this result tra nsmitted reference range : <=2. The reference range was not used to interpr et this result as edgardo l/abnormal. [facility] AND [id number] 15:56:00 Test Item Value Reference Range Interpretation Comments UA Bili (test code = Negative *NA*(04/03/15 UA Bili) 9:56 AM) [facility] AND [id number] 15:56:00 Test Item Value Reference Range Interpretation Comments UA pH (test code = UA pH) 6.0 1 5.0-8.0 [facility] AND [id number] 15:56:00 Test Item Value Reference Range Interpretation Comments UA Protein (test code = UA Protein) 30 mg/dL [facility] AND [id number] 15:56:00 Test Item Value Reference Range Interpretation Comments UA Ketones (test code Negative *NA*(04/03/15 = UA Ketones) 9:56 AM) [facility] AND [id number] 15:56:00 Test Item Value Reference Range Interpretation Comments UA Glucose (test code Negative (04/03/15 9:56 = UA Glucose) AM) [facility] AND [id number] 15:56:00 Test Item Value Reference Range Interpretation Comments UA Blood (test code = Negative (04/03/15 9:56 UA Blood) AM) [facility] AND [id number] 15:56:00 Test Item Value Reference Range Interpretation Comments UA Color (test code = Yellow *NA*(04/03/15 [facility]A Color) 9:56 AM) [facility] [id number] 15:56:00 Test Item Value Reference Range Interpretation Comments UA Turbidity (test code = Clear (04/03/15 9:56 UA Turbidity) AM) [facility] [id number] 15:56:00 Test Item Value Reference Range Interpretation Comments UA Spec Grav (test code = UA Spec 1.020 1 Grav) [facility] [id number] 15:40:00 Test Item Value Reference Range Interpretation Comments Troponin-I (test code no gt See_Comment [Auto mated message] The = Troponin-I) system which g enerated this result transmit mele reference range : <=0.40. The reference r lisa was not used to interpr et this result as edgardo l/abnormal. [facility] [employer] [id number] 15:40:00 Test Item Value Reference Range Interpretation Comments CK MB (test code = CK MB) 4.2 0.5-3.6 [facility] [id number] 15:40:00 Test Item Value Reference Range Interpretation Comments Total CK (test code = Total CK) 211 12-191 [facility] [id number] 15:40:00 Test Item Value Reference Range Interpretation Comments CK MB Index (test 2.0 See_Comment [Automate d message] The code = CK MB Index) system [facility] generated this result transmit mele reference range : <=2.5. The reference range was not used to interpr et this result as edgardo l/abnormal. [facility] [employer] [id number] 15:40:00 Test Item Value Reference Range Interpretation Comments eGFR (test code = eGFR) 52 [facility] [id number] 15:40:00 Test Item Value Reference Range Interpretation Comments Potassium Lvl (test code = Potassium 3.7 3.5-5.1 Lvl) [facility] [id number] 15:40:00 Test Item Value Reference Range Interpretation Comments Creatinine Lvl (test code = Creatinine 1.11 0.50-1.40 Lvl) [facility] [employer] [id number] 15:40:00 Test Item Value Reference Range Interpretation Comments Sodium Lvl (test code = Sodium Lvl) 134 135-145 [facility]2015-12-13 15:40:00 Test Item Value Reference Range Interpretation Comments BUN (test code = BUN) 8 7-22 [place] 974815-12-13 15:40:00 Test Item Value Reference Range Interpretation Comments Calcium Lvl (test code = Calcium Lvl) 9.3 8.5-10.5 [place] 974815-12-13 15:40:00 Test Item Value Reference Range Interpretation Comments Albumin Lvl (test code = Albumin Lvl) 4.1 3.5-5.0 [place] 974815-12-13 15:40:00 Test Item Value Reference Range Interpretation Comments ALT (test code = ALT) 25 See_Comment [Auto mated message] The system which ge nerated this result transmit mele reference range : <=65. The reference range was not used to interpr et this result as edgardo l/abnormal. [place] 974815-12-13 15:40:00 Test Item Value Reference Range Interpretation Comments Total Protein (test code = Total 7.1 6.4-8.4 Protein) [place] 974815-12-13 15:40:00 Test Item Value Reference Range Interpretation Comments CO2 (test code = CO2) 24 24-32 [place] 974815-12-13 15:40:00 Test Item Value Reference Range Interpretation Comments Bili Total (test code = Bili Total) 0.3 0.2-1.3 [place] 974815-12-13 15:40:00 Test Item Value Reference Range Interpretation Comments Alk Phos (test code = Alk Phos) 71 39-136 [place] [address]-12-13 15:40:00 Test Item Value Reference Range Interpretation Comments AST (test code = AST) 17 See_Comment [Auto mated message] The system which ge nerated this result transmit mele reference range : <=37. The reference range was not used to interpr et this result as edgardo l/abnormal. [place] 974815-12-13 15:40:00 Test Item Value Reference Range Interpretation Comments A/G Ratio (test code = A/G Ratio) 1.4 0.7-1.6 [facility]2015-12-13 15:40:00 Test Item Value Reference Range Interpretation Comments B/C Ratio (test code = B/C Ratio) 7 6-25 [facility]2015-12-13 15:40:00 Test Item Value Reference Range Interpretation Comments AGAP (test code = AGAP) 13.7 10.0-20.0 [facility]2015-12-13 15:40:00 Test Item Value Reference Range Interpretation Comments Globulin (test code = Globulin) 3.0 2.0-4.0 [facility]2015-12-13 15:40:00 Test Item Value Reference Range Interpretation Comments Chloride Lvl (test code = Chloride Lvl) 100 95-109 [facility]2015-12-13 15:40:00 Test Item Value Reference Range Interpretation Comments Glucose Lvl (test code = Glucose Lvl) 204 70-99 [facility]2015-12-13 15:40:00 Test Item Value Reference Range Interpretation Comments Lipase Lvl (test code = Lipase Lvl) 203 73-393 [facility]MeygqsaRIPTEVYDHQ6320-69-19 15:40:00 Test Item Value Reference Range Interpretation Comments MCHC (test code = MCHC) 32.3 32.0-36.0 [facility] DallasNaijgyvTWSFQLNKYM1760-59-60 15:40:00 Test Item Value Reference Range Interpretation Comments RDW (test code = RDW) 14.3 11.5-14.5 [facility] DallasNlrjqpsKZFQUWCDEP5719-50-61 15:40:00 Test Item Value Reference Range Interpretation Comments MCH (test code = MCH) 29.0 pg 27.0-31.0 [facility] DallasBdhtudqDKBCOLLQXA2979-82-21 15:40:00 Test Item Value Reference Range Interpretation Comments MPV (test code = MPV) 8.0 7.4-10.4 [facility] DallasFdlugehKGTGKLTQVA1050-59-59 15:40:00 Test Item Value Reference Range Interpretation Comments Platelet (test code = Platelet) 235 133-450 [facility] DallasRegfpkxRNAKEUXMFW5546-93-79 15:40:00 Test Item Value Reference Range Interpretation Comments RBC (test code = RBC) 4.69 4.20-5.40 [facility] DallasAakiusdDYJTUCHAFE8746-95-46 15:40:00 Test Item Value Reference Range Interpretation Comments Hgb (test code = Hgb) 13.6 12.0-16.0 [facility] DallasHzsvlcxELNGTSITBX4706-09-49 15:40:00 Test Item Value Reference Range Interpretation Comments Hct (test code = Hct) 42.2 36.0-48.0 [facility] DallasTymbxheVJUZFIRQAJ5438-78-04 15:40:00 Test Item Value Reference Range Interpretation Comments MCV (test code = MCV) 89.8 80.0-98.0 [facility] DallasQyqvjcrBUUKCTIRTU6897-75-61 15:40:00 Test Item Value Reference Range Interpretation Comments WBC (test code = WBC) 8.3 3.7-10.4 [facility] DallasUqvvuamNEEVFKJIDO3836-93-27 15:40:00 Test Item Value Reference Range Interpretation Comments Monocytes # (test code 0.4 See_Comment [Aut omated message] The = Monocytes #) system which generated this result tra nsmitted reference range : <=0.8. The reference r lisa was not used to int erpret this result as normal/abnormal . [facility] DallasQnpwnlpASCRCEVQMS8443-82-07 15:40:00 Test Item Value Reference Range Interpretation Comments Segs-Bands # (test code = Segs-Bands #) 5.8 1.5-8.1 [facility] DallasOllmmfaGQVWPNKIQH5953-92-51 15:40:00 Test Item Value Reference Range Interpretation Comments Lymphocytes # (test code = Lymphocytes 1.9 1.0-5.5 #) [facility] DallasXyqiwkiDDKFKRCGFC3970-39-89 15:40:00 Test Item Value Reference Range Interpretation Comments Basophils # (test code 0.1 See_Comment [Aut omated message] The = Basophils #) system which generated this result tra nsmitted reference range : <=0.2. The reference r lisa was not used to int erpret this result as normal/abnormal . [facility] DallasNebabcgFHMOYAKFEE0694-72-10 15:40:00 Test Item Value Reference Range Interpretation Comments Eosinophils # (test code 0.1 See_Comment [A utomated message] The = Eosinophils #) system whic h generated this result tra nsmitted reference range : <=0.5. The reference r lisa was not used to int erpret this result as normal/abnormal . [facility] DallasAvszdyvKQLIPGATAK1476-63-25 15:40:00 Test Item Value Reference Range Interpretation Comments Segs (test code = Segs) 70.4 45.0-75.0 [facility]PavdwfjEUONUSUZIH6732-13-99 15:40:00 Test Item Value Reference Range Interpretation Comments Lymphocytes (test code = Lymphocytes) 23.1 20.0-40.0 [facility]Lcl[facility]cOAQTUBSSOW6819-44-04 15:40:00 Test Item Value Reference Range Interpretation Comments Basophils (test code = 0.7 See_Comment [Aut omated message] The Basophils) system which ge nerated this result tra nsmitted reference range : <=1.0. The reference r lisa was not used to int erpret this result as normal/abnormal . [facility] HospitalLhnaozuYCKQTBPRDO0003-20-06 15:40:00 Test Item Value Reference Range Interpretation Comments Monocytes (test code = Monocytes) 4.6 2.0-12.0 [facility] HospitalPkjpcykTBVXUHEOXW6526-80-39 15:40:00 Test Item Value Reference Range Interpretation Comments Eosinophils (test code = 1.2 See_Comment [A utomated message] The Eosinophils) system which ge nerated this result tra nsmitted reference range : <=4.0. The reference r lisa was not used to int erpret this result as normal/abnormal . [facility] [employer]2015-12-13 15:40:00 Test Item Value Reference Range Interpretation Comments Troponin-I (test code no gt See_Comment [Auto mated message] The = Troponin-I) system which g enerated this result transmit mele reference range : <=0.40. The reference r lisa was not used to interpr et this result as edgardo l/abnormal. [facility] [employer]2015-12-13 15:40:00 Test Item Value Reference Range Interpretation Comments CK MB (test code = CK MB) 4.2 0.5-3.6 [facility] [employer]2015-12-13 15:40:00 Test Item Value Reference Range Interpretation Comments Total CK (test code = Total CK) 211 12-191 [facility] HospitalK[facility] YYFEERP0381-13-21 15:40:00 Test Item Value Reference Range Interpretation Comments CK MB Index (test 2.0 See_Comment [Automate d message] The code = CK MB Index) system [facility] generated this result transmit mele reference range : <=2.5. The reference range was not used to interpr et this result as edgardo l/abnormal. [facility]2015-12-13 15:40:00 Test Item Value Reference Range Interpretation Comments eGFR (test code = eGFR) 52 [facility]2015-12-13 15:40:00 Test Item Value Reference Range Interpretation Comments Potassium Lvl (test code = Potassium 3.7 3.5-5.1 Lvl) [facility]2015-12-13 15:40:00 Test Item Value Reference Range Interpretation Comments Creatinine Lvl (test code = Creatinine 1.11 0.50-1.40 Lvl) [facility]2015-12-13 15:40:00 Test Item Value Reference Range Interpretation Comments Sodium Lvl (test code = Sodium Lvl) 134 135-145 [facility]2015-12-13 15:40:00 Test Item Value Reference Range Interpretation Comments BUN (test code = BUN) 8 7-22 [facility]2015-12-13 15:40:00 Test Item Value Reference Range Interpretation Comments Calcium Lvl (test code = Calcium Lvl) 9.3 8.5-10.5 [facility]2015-12-13 15:40:00 Test Item Value Reference Range Interpretation Comments Albumin Lvl (test code = Albumin Lvl) 4.1 3.5-5.0 [facility]2015-12-13 15:40:00 Test Item Value Reference Range Interpretation Comments ALT (test code = ALT) 25 See_Comment [Auto mated message] The system which ge nerated this result transmit mele reference range : <=65. The reference range was not used to interpr et this result as edgarod l/abnormal. [facility]2015-12-13 15:40:00 Test Item Value Reference Range Interpretation Comments Total Protein (test code = Total 7.1 6.4-8.4 Protein) [facility]2015-12-13 15:40:00 Test Item Value Reference Range Interpretation Comments CO2 (test code = CO2) 24 24-32 [place] 974815-12-13 15:40:00 Test Item Value Reference Range Interpretation Comments Bili Total (test code = Bili Total) 0.3 0.2-1.3 [place] 974815-12-13 15:40:00 Test Item Value Reference Range Interpretation Comments Alk Phos (test code = Alk Phos) 71 39-136 [facility]2015-12-13 15:40:00 Test Item Value Reference Range Interpretation Comments AST (test code = AST) 17 See_Comment [Auto mated message] The system which ge nerated this result transmit mele reference range : <=37. The reference range was not used to interpr et this result as edgardo l/abnormal. [facility]2015-12-13 15:40:00 Test Item Value Reference Range Interpretation Comments A/G Ratio (test code = A/G Ratio) 1.4 0.7-1.6 [facility]2015-12-13 15:40:00 Test Item Value Reference Range Interpretation Comments B/C Ratio (test code = B/C Ratio) 7 6-25 [facility]2015-12-13 15:40:00 Test Item Value Reference Range Interpretation Comments AGAP (test code = AGAP) 13.7 10.0-20.0 [facility]2015-12-13 15:40:00 Test Item Value Reference Range Interpretation Comments Globulin (test code = Globulin) 3.0 2.0-4.0 [facility]2015-12-13 15:40:00 Test Item Value Reference Range Interpretation Comments Chloride Lvl (test code = Chloride Lvl) 100 95-109 [facility]2015-12-13 15:40:00 Test Item Value Reference Range Interpretation Comments Glucose Lvl (test code = Glucose Lvl) 204 70-99 [facility]2015-12-13 15:40:00 Test Item Value Reference Range Interpretation Comments Lipase Lvl (test code = Lipase Lvl) 203 73-393 [facility] DallasTikhhzrDAMWGYRPCJ7317-69-19 15:40:00 Test Item Value Reference Range Interpretation Comments MCHC (test code = MCHC) 32.3 32.0-36.0 [facility] DallasOpnpbglBNPCDHYFWZ8958-37-98 15:40:00 Test Item Value Reference Range Interpretation Comments RDW (test code = RDW) 14.3 11.5-14.5 [facility] DallasTvpljdwSTLVGHPEYZ5054-74-26 15:40:00 Test Item Value Reference Range Interpretation Comments MCH (test code = MCH) 29.0 pg 27.0-31.0 [facility] DallasOnrhctdNRWGQLNAXQ2516-74-73 15:40:00 Test Item Value Reference Range Interpretation Comments MPV (test code = MPV) 8.0 7.4-10.4 [facility] DallasDjnbktvCEADALZVIY1482-94-45 15:40:00 Test Item Value Reference Range Interpretation Comments Platelet (test code = Platelet) 235 133-450 [facility] DallasMcibefiRBRHVFJUOB8645-13-51 15:40:00 Test Item Value Reference Range Interpretation Comments RBC (test code = RBC) 4.69 4.20-5.40 [facility] DallasBmjtgpeBJYWTUCNXQ3129-27-71 15:40:00 Test Item Value Reference Range Interpretation Comments Hgb (test code = Hgb) 13.6 12.0-16.0 [facility] DallasAzghfclHTPPLTACWY1342-05-12 15:40:00 Test Item Value Reference Range Interpretation Comments Hct (test code = Hct) 42.2 36.0-48.0 [facility] DallasKxrxcubFKTXTWAJKC8054-72-94 15:40:00 Test Item Value Reference Range Interpretation Comments MCV (test code = MCV) 89.8 80.0-98.0 [facility] DallasFpjgbqmERMPKVJFMA6312-98-32 15:40:00 Test Item Value Reference Range Interpretation Comments WBC (test code = WBC) 8.3 3.7-10.4 [facility] DallasHbnefvaKMARKUEQWX5237-19-45 15:40:00 Test Item Value Reference Range Interpretation Comments Monocytes # (test code 0.4 See_Comment [Aut omated message] The = Monocytes #) system which generated this result tra nsmitted reference range : <=0.8. The reference r lisa was not used to int erpret this result as normal/abnormal . [facility] DallasIuhgjvcVAPQMOSOIT7004-44-48 15:40:00 Test Item Value Reference Range Interpretation Comments Segs-Bands # (test code = Segs-Bands #) 5.8 1.5-8.1 [facility] DallasImnghogQWZFPSBEEI9807-57-65 15:40:00 Test Item Value Reference Range Interpretation Comments Lymphocytes # (test code = Lymphocytes 1.9 1.0-5.5 #) [facility] DallasAdxeddkLHTFMXWSAX2891-26-47 15:40:00 Test Item Value Reference Range Interpretation Comments Basophils # (test code 0.1 See_Comment [Aut omated message] The = Basophils #) system which generated this result tra nsmitted reference range : <=0.2. The reference r lisa was not used to int erpret this result as normal/abnormal . [facility] DallasOeqaxgyJBRRXBDJFD8354-42-92 15:40:00 Test Item Value Reference Range Interpretation Comments Eosinophils # (test code 0.1 See_Comment [A utomated message] The = Eosinophils #) system whic h generated this result tra nsmitted reference range : <=0.5. The reference r lisa was not used to int erpret this result as normal/abnormal . [facility] DallasXgaagwbDPHPVUBPAL3025-95-56 15:40:00 Test Item Value Reference Range Interpretation Comments Segs (test code = Segs) 70.4 45.0-75.0 [facility] DallasSefwnkcQBRJUGWHFE3079-61-10 15:40:00 Test Item Value Reference Range Interpretation Comments Lymphocytes (test code = Lymphocytes) 23.1 20.0-40.0 [facility] DallasApwhfkmKALLANOOAN0587-17-27 15:40:00 Test Item Value Reference Range Interpretation Comments Basophils (test code = 0.7 See_Comment [Aut omated message] The Basophils) system which ge nerated this result tra nsmitted reference range : <=1.0. The reference r lisa was not used to int erpret this result as normal/abnormal . [facility] DallasEojguyeMOHJDDJDYH7629-01-87 15:40:00 Test Item Value Reference Range Interpretation Comments Monocytes (test code = Monocytes) 4.6 2.0-12.0 [facility] DallasReawfnnLPVNCYFPJJ4117-44-43 15:40:00 Test Item Value Reference Range Interpretation Comments Eosinophils (test code = 1.2 See_Comment [A utomated message] The Eosinophils) system which ge nerated this result tra nsmitted reference range : <=4.0. The reference r lisa was not used to int erpret this result as normal/abnormal . [facility]CARD[facility] CVETUOW2456-26-67 15:40:00 Test Item Value Reference Range Interpretation Comments Troponin-I (test code no gt See_Comment [Auto mated message] The = Troponin-I) system which g enerated this result transmit mele reference range : <=0.40. The reference r lisa was not used to interpr et this result as edgardo l/abnormal. [facility]ann[facility] XNCUVMG5510-99-30 15:40:00 Test Item Value Reference Range Interpretation Comments CK MB (test code = CK MB) 4.2 0.5-3.6 [facility] CenterCARAC IHRGVPR1123-68-29 15:40:00 Test Item Value Reference Range Interpretation Comments Total CK (test code = Total CK) 211 12-191 [facility]CAR[facility] XVGURYR1804-74-48 15:40:00 Test Item Value Reference Range Interpretation Comments CK MB Index (test 2.0 See_Comment [Automate d message] The code = CK MB Index) system w [employer] generated this result transmit meel reference range : <=2.5. The reference range was not used to interpr et this result as edgardo l/abnormal. [facility] ZHYJN5361-38-70 15:40:00 Test Item Value Reference Range Interpretation Comments eGFR (test code = eGFR) 52 [facility]2015-12-13 15:40:00 Test Item Value Reference Range Interpretation Comments Potassium Lvl (test code = Potassium 3.7 3.5-5.1 Lvl) [facility]2015-12-13 15:40:00 Test Item Value Reference Range Interpretation Comments Creatinine Lvl (test code = Creatinine 1.11 0.50-1.40 Lvl) [facility]2015-12-13 15:40:00 Test Item Value Reference Range Interpretation Comments Sodium Lvl (test code = Sodium Lvl) 134 135-145 [facility]2015-12-13 15:40:00 Test Item Value Reference Range Interpretation Comments BUN (test code = BUN) 8 7-22 [facility] ZWFHG9973-31-08 15:40:00 Test Item Value Reference Range Interpretation Comments Calcium Lvl (test code = Calcium Lvl) 9.3 8.5-10.5 [facility] EBMPR8908-23-11 15:40:00 Test Item Value Reference Range Interpretation Comments Albumin Lvl (test code = Albumin Lvl) 4.1 3.5-5.0 [facility] RQJJI3227-30-24 15:40:00 Test Item Value Reference Range Interpretation Comments ALT (test code = ALT) 25 See_Comment [Auto mated message] The system which ge nerated this result transmit mele reference range : <=65. The reference range was not used to interpr et this result as edgardo l/abnormal. [facility]2015-12-13 15:40:00 Test Item Value Reference Range Interpretation Comments Total Protein (test code = Total 7.1 6.4-8.4 Protein) [facility]2015-12-13 15:40:00 Test Item Value Reference Range Interpretation Comments CO2 (test code = CO2) 24 24-32 [facility]2015-12-13 15:40:00 Test Item Value Reference Range Interpretation Comments Bili Total (test code = Bili Total) 0.3 0.2-1.3 [facility]2015-12-13 15:40:00 Test Item Value Reference Range Interpretation Comments Alk Phos (test code = Alk Phos) 71 39-136 [facility]2015-12-13 15:40:00 Test Item Value Reference Range Interpretation Comments AST (test code = AST) 17 See_Comment [Auto mated message] The system which ge nerated this result transmit mele reference range : <=37. The reference range was not used to interpr et this result as edgardo l/abnormal. [facility]2015-12-13 15:40:00 Test Item Value Reference Range Interpretation Comments A/G Ratio (test code = A/G Ratio) 1.4 0.7-1.6 [facility]2015-12-13 15:40:00 Test Item Value Reference Range Interpretation Comments B/C Ratio (test code = B/C Ratio) 7 6-25 [facility]2015-12-13 15:40:00 Test Item Value Reference Range Interpretation Comments AGAP (test code = AGAP) 13.7 10.0-20.0 [facility]2015-12-13 15:40:00 Test Item Value Reference Range Interpretation Comments Globulin (test code = Globulin) 3.0 2.0-4.0 [facility]2015-12-13 15:40:00 Test Item Value Reference Range Interpretation Comments Chloride Lvl (test code = Chloride Lvl) 100 95-109 [facility]2015-12-13 15:40:00 Test Item Value Reference Range Interpretation Comments Glucose Lvl (test code = Glucose Lvl) 204 70-99 [facility]2015-12-13 15:40:00 Test Item Value Reference Range Interpretation Comments Lipase Lvl (test code = Lipase Lvl) 203 73-393 [facility] DallasBzkbmwuQHRLSRZSNT7317-36-28 15:40:00 Test Item Value Reference Range Interpretation Comments MCHC (test code = MCHC) 32.3 32.0-36.0 [facility] DallasYohojkqRXOGILNQHX3235-34-81 15:40:00 Test Item Value Reference Range Interpretation Comments RDW (test code = RDW) 14.3 11.5-14.5 [facility] DallasDsupjjhZXKQDHGDKO3765-44-04 15:40:00 Test Item Value Reference Range Interpretation Comments MCH (test code = MCH) 29.0 pg 27.0-31.0 [id number] 15:40:00 Test Item Value Reference Range Interpretation Comments MPV (test code = MPV) 8.0 7.4-10.4 [facility] [id number] 15:40:00 Test Item Value Reference Range Interpretation Comments Platelet (test code = Platelet) 235 133-450 [facility] [id number] 15:40:00 Test Item Value Reference Range Interpretation Comments RBC (test code = RBC) 4.69 4.20-5.40 [facility] [id number] 15:40:00 Test Item Value Reference Range Interpretation Comments Hgb (test code = Hgb) 13.6 12.0-16.0 [facility] [id number] 15:40:00 Test Item Value Reference Range Interpretation Comments Hct (test code = Hct) 42.2 36.0-48.0 [facility] [id number] 15:40:00 Test Item Value Reference Range Interpretation Comments MCV (test code = MCV) 89.8 80.0-98.0 [facility] [id number] 15:40:00 Test Item Value Reference Range Interpretation Comments WBC (test code = WBC) 8.3 3.7-10.4 [facility] [id number] 15:40:00 Test Item Value Reference Range Interpretation Comments Monocytes # (test code 0.4 See_Comment [Aut omated message] The = Monocytes #) system which generated this result tra nsmitted reference range : <=0.8. The reference r lisa was not used to int erpret this result as normal/abnormal . [facility] [id number] 15:40:00 Test Item Value Reference Range Interpretation Comments Segs-Bands # (test code = Segs-Bands #) 5.8 1.5-8.1 [facility] [id number] 15:40:00 Test Item Value Reference Range Interpretation Comments Lymphocytes # (test code = Lymphocytes 1.9 1.0-5.5 #) [facility] [id number] 15:40:00 Test Item Value Reference Range Interpretation Comments Basophils # (test code 0.1 See_Comment [Aut omated message] The = Basophils #) system which generated this result tra nsmitted reference range : <=0.2. The reference r lisa was not used to int erpret this result as normal/abnormal . [facility] [id number] 15:40:00 Test Item Value Reference Range Interpretation Comments Eosinophils # (test code 0.1 See_Comment [A utomated message] The = Eosinophils #) system whic h generated this result tra nsmitted reference range : <=0.5. The reference r lisa was not used to int erpret this result as normal/abnormal . [facility] [id number] 15:40:00 Test Item Value Reference Range Interpretation Comments Segs (test code = Segs) 70.4 45.0-75.0 [facility] [id number] 15:40:00 Test Item Value Reference Range Interpretation Comments Lymphocytes (test code = Lymphocytes) 23.1 20.0-40.0 [facility] [id number] 15:40:00 Test Item Value Reference Range Interpretation Comments Basophils (test code = 0.7 See_Comment [Aut omated message] The Basophils) system which ge nerated this result tra nsmitted reference range : <=1.0. The reference r lisa was not used to int erpret this result as normal/abnormal . [facility] [id number] 15:40:00 Test Item Value Reference Range Interpretation Comments Monocytes (test code = Monocytes) 4.6 2.0-12.0 [facility] [id number] 15:40:00 Test Item Value Reference Range Interpretation Comments Eosinophils (test code = 1.2 See_Comment [A utomated message] The Eosinophils) system which ge nerated this result tra nsmitted reference range : <=4.0. The reference r lisa was not used to int erpret this result as normal/abnormal . Artem Ag
[2022-03-11 15:42] LABS: Absolute Lymphocytes (CBC) 1.8 K/uL (0.7-4.9); Hematocrit 38.9 % (36.0-45.0); Lymphocytes % 18.5 % (15.3-44.8); MCV 90.1 fL (80-100); RBC Red Blood Cell Count 4.32 M/uL (3.86-4.86)
--- NOTE | 2022-03-11 15:42 | RAD REPORT ---
EXAM DESCRIPTION: CT - CTHCSPWOC - 03/11/2022 3:34 pm CLINICAL HISTORY: Trauma, head and neck injury. dizziness, fall COMPARISON: Head C Spine Mpr Wo Con dated 06/30/2021; [id number]-ITYTH-[id number]-WO dated 01/19/2013; Hip Left 2 View dated 08/28/2021 TECHNIQUE: Axial 5 mm thick images of the head were obtained. Axial 2 mm thick images of the cervical spine were obtained with sagittal and coronal reconstruction images generated and reviewed. All CT scans are performed using dose optimization technique as appropriate and may include automated exposure control or mA/KV adjustment according to patient size. FINDINGS: CT HEAD WITHOUT CONTRAST: No acute hemorrhage, hydrocephalus or extra-axial collection is identified.Mild generalized brain atr ophy is present with mild periventricular and deep white matter chronic microvascular ischemic change s.No areas of brain edema or midline shift. The paranasal sinuses and mastoids are clear.The calvarium is intact. CT CERVICAL SPINE WITHOUT CONTRAST: No fracture or subluxation.Mild lower lumbar degenerative changes.No prevertebral soft tissues swelli ng is identified. Carotid atherosclerosis is noted bilaterally. IMPRESSION: No acute intracranial or cervical spine findings.
--- NOTE | 2022-03-11 16:06 | RAD REPORT ---
EXAM DESCRIPTION: RAD - Chest Single View - 03/11/2022 3:57 pm CLINICAL HISTORY: SOB Chest pain. COMPARISON: Chest Single View dated 06/30/2021; CHEST SINGLE VIEW dated 07/21/2013; CHEST SINGLE VIEW d ated 06/01/2012; CHEST SINGLE VIEW dated 02/19/2011 FINDINGS: Portable technique limits examination quality. The lungs are emphysematous but grossly clear. The heart is upper limit of normal in size. No displac ed fractures. IMPRESSION: Mild diffuse COPD.
[2022-03-11 16:12] LABS: Protime INR 1.01
[2022-03-11 16:15] LABS: BUN Blood Urea Nitrogen 14 mg/dL (7-18); Bicarbonate 23 mmol/L (21-32); Glucose Level 180 mg/dL (74-106); Sodium Level 141 mmol/L (136-145)
[2022-03-11 16:16] LABS: ALT/SGPT 24 U/L (12-78); AST/SGOT 22 U/L (15-37); Albumin 3.7 g/dL (3.4-5.0); Alkaline Phosphatase 85 U/L (45-117); Bilirubin Direct < 0.1 mg/dL (0-0.2); Bilirubin Total 0.4 mg/dL (0.2-1.0); Glomerular Filtration Rate 51 ml/min (=/>90); NT PRO-BNP 777 pg/mL (<125); Potassium 4.5 mmol/L (3.5-5.1); Protein, Total 6.9 g/dL (6.4-8.2); Troponin High Sensitivity 17.5 pg/mL (<58.9)
--- NOTE | 2022-03-11 16:35 | EDPHYS ---
Physician Documentation [facility] Name: Evelin Rojas Age: 76 yrs Sex: Female : 1945 Arrival Date: 03/11/2022 Time: 14:36 Bed 26 Private MD: ED Physician Marquis Paulino HPI: 03/11 15:00 This 76 yrs old Female presents to ER via EMS with complaints of Shortness Of Breath. cp 15:00 The patient has shortness of breath at rest. cp 15:00 Onset: The symptoms/episode began/occurred yesterday. cp 15:00 Duration: The symptoms are continuous, and are steadily getting worse. Associated signs cp and symptoms: Pertinent positives: dizziness, Pertinent negatives: chest pain, non-productive cough, diaphoresis, fever, visual changes, vomiting. Severity of symptoms: in the emergency department the symptoms are unchanged despite home interventions. Historical: - Allergies: 15:56 Floxin; em6 - Home Meds: 15:56 Alprazolam Oral [Active]; Aspirin Oral [Active]; atorvastatin Oral [Active]; duloxetine em6 Oral [Active]; gabapentin Oral [Active]; Hydrochlorothiazide Oral [Active]; levothyroxine oral [Active]; Metformin Oral [Active]; montelukast Oral [Active]; - PMHx: 15:56 Anxiety; diabetes mellitus; Hypercholesterolemia; Hypothyroidism; neuropathy; em6 - Immunization history:: Adult Immunizations unknown. - Social history:: Smoking status: unknown. ROS: 15:05 Constitutional: Negative for body aches, chills, fever, poor PO intake. cp 15:05 Cardiovascular: Negative for chest pain, edema, palpitations. cp 15:05 Eyes: Negative for injury, pain, redness, and discharge. cp 15:05 ENT: Negative for drainage from ear(s), ear pain, sore throat, difficulty swallowing, difficulty handling secretions. 15:05 Respiratory: Positive for shortness of breath, at rest. Negative for cough, wheezing. 15:05 Abdomen/GI: Negative for abdominal pain, vomiting, diarrhea, constipation. 15:05 : Negative for urinary symptoms. 15:05 Neuro: Positive for dizziness, near syncope, Negative for altered mental status, headache, weakness. 15:05 All other systems are negative. cp Exam: 15:09 Constitutional: The patient appears in no acute distress, alert, awake, cp non-diaphoretic, non-toxic, well developed, well nourished. 15:09 Head/Face: Normocephalic, atraumatic. cp 15:09 Eyes: Periorbital structures: appear normal, Pupils: equal, round, and reactive to light and accomodation, Extraocular movements: intact throughout, Conjunctiva: normal, no exudate, no injection, Sclera: no appreciated abnormality, Lids and lashes: appear normal, bilaterally. 15:09 ENT: External ear(s): are unremarkable, Nose: is normal, Mouth: Lips: moist, Oral mucosa: pink and intact, moist, Posterior pharynx: Airway: no evidence of obstruction, patent, swelling, is not appreciated, erythema, is not appreciated. 15:09 Neck: C-spine: vertebral tenderness, is not appreciated, crepitus, is not appreciated, ROM/movement: is normal, is supple, without pain, no range of motions limitations, no nuchal rigidity. 15:09 Chest/axilla: Inspection: normal, Palpation: is normal, no crepitus, no tenderness. 15:09 Cardiovascular: Rate: bradycardic, Rhythm: regular, Edema: is not appreciated, JVD: is not appreciated. 15:09 Respiratory: the patient does not display signs of respiratory distress, Respirations: normal, no use of accessory muscles, no retractions, labored breathing, is not present, Breath sounds: are clear throughout, no decreased breath sounds, no stridor, no wheezing. 15:09 Abdomen/GI: Inspection: abdomen appears normal, Palpation: abdomen is soft and non-tender, in all quadrants. 15:09 Back: pain, is absent, ROM is normal. 15:09 Neuro: Orientation: to person, place \T\ time. Mentation: is normal. 15:12 ECG was reviewed by the Attending Physician. cp Vital Signs: 14:40 BP 129 / 104; Pulse 48; Resp 19; Temp 98.7; Pulse Ox 100% on R/A; Weight 72.57 kg; em6 Height 5 ft. (152.40 cm); Pain 0/10; 16:01 BP 180 / 52; Pulse 46; Resp 16; Pulse Ox 100% ; em6 16:45 BP 169 / 46; Pulse 47; Resp 16; Pulse Ox 100% on R/A; em6 17:30 BP 179 / 137; Pulse 51; Resp 17; Pulse Ox 100% on R/A; em6 18:15 BP 163 / 77; Pulse 53; Resp 20; Pulse Ox 100% on R/A; em6 19:00 BP 162 / 82; Pulse 50; Resp 17; Pulse Ox 100% on R/A; em6 14:40 Body Mass Index 31.25 (72.57 kg, 152.40 cm) em6 MDM: 14:39 Patient medically screened. cp 15:00 Differential diagnosis: Chronic Obstructive Pulmonary Disease Myocardial Infarction cp pneumonia, Pneumothorax pulmonary edema, Pulmonary Embolism Sepsis Unstable Angina CVA. 16:20 Data reviewed: vital signs, nurses notes, lab test result(s), EKG, radiologic studies, cp CT scan, plain films. 16:20 Test interpretation: by ED physician or midlevel provider: ECG, plain radiologic cp studies. 16:30 Counseling: I had a detailed discussion with the patient and/or guardian regarding: the historical points, exam findings, and any diagnostic results supporting the discharge/admit diagnosis, lab results, radiology results, the need to transfer to another facility, for higher level of care. 17:10 Physician consultation: was contacted at 17:00, regarding regarding transfer, to [facility]. patient's condition, accepting physician will be DR Yamilet Gaona. 03/11 14:54 Order name: Basic Metabolic Panel; Complete Time: 16:17 03/11 16:17 Interpretation: Normal except: ANION GAP 15.5; GLUC 180; GFR 51. 03/11 14:54 Order name: CBC with Diff; Complete Time: 16:10 03/11 16:10 Interpretation: Normal except: GUCCI% 74.2. 03/11 14:54 Order name: LFT's; Complete Time: 16:17 03/11 14:54 Order name: Magnesium; Complete Time: 16:17 03/11 14:54 Order name: NT PRO-BNP; Complete Time: 16:17 03/11 16:17 Interpretation: Abnormal: NT PRO-BNP 777. 03/11 14:54 Order name: PT-INR; Complete Time: 16:17 03/11 14:54 Order name: Troponin HS; Complete Time: 16:17 03/11 14:54 Order name: XRAY Chest (1 view); Complete Time: 16:10 cp 03/11 16:10 Interpretation: Report review. 03/11 14:54 Order name: CT Head C Spine; Complete Time: 16:10 cp 03/11 16:10 Interpretation: Reviewed report. 03/11 14:54 Order name: Urine Microscopic Only; Complete Time: 17:51 cp 03/11 17:51 Interpretation: Reviewed. 03/11 16:13 Order name: SARS RAPID; Complete Time: 17:51 eb 03/11 17:51 Interpretation: Reviewed. 03/11 16:50 Order name: Urine Dipstick-Ancillary; Complete Time: 17:01 EDMS 03/11 14:54 Order name: EKG; Complete Time: 14:55 03/11 14:54 Order name: Cardiac monitoring; Complete Time: 15:18 03/11 14:54 Order name: EKG - Nurse/Tech; Complete Time: 15:18 03/11 14:54 Order name: IV Saline Lock; Complete Time: 15:18 03/11 14:54 Order name: Labs collected and sent; Complete Time: 15:19 03/11 14:54 Order name: O2 Per Protocol; Complete Time: 15:19 03/11 14:54 Order name: O2 Sat Monitoring; Complete Time: 15:19 03/11 14:54 Order name: Urine Dipstick-Ancillary (obtain specimen); Complete Time: 17:05 cp EC:12 Rate is 48 beats/min. Rhythm is regular. CA interval is prolonged at 236 msec. QRS cp interval is prolonged at 136 msec. QT interval is prolonged at 524 msec. T waves are Inverted in leads aVL, aVR, V3. Interpreted by me. Reviewed by me. Administered Medications: 16:43 Drug: NS 0.9% 500 ml Route: IV; Rate: calculated rate; Site: right antecubital; em6 19:30 Follow up: Response: No adverse reaction; IV Status: Completed infusion; IV Intake: em6 500ml 16:43 Drug: hydrALAZINE 5 mg Route: IVP; Site: right wrist; em6 17:10 Follow up: Response: No adverse reaction em6 Disposition Summary: 03/11/22 16:34 Transfer Ordered Reason: Higher level of care cp Condition: Stable cp Problem: new cp Symptoms: have improved cp Transfer Location: [facility](03/11/22 17:10) cp Accepting Physician: Dr. Yamilet Gaona [facility](03/11/22 19:53) em6 Diagnosis - Bradycardia, unspecified - symptomatic cp - Dizziness and giddiness cp - Shortness of breath cp Forms: - Medication Reconciliation Form cp - SBAR form cp Signatures: Dispatcher [employer] EDMS Marquis Nogueira PA PA cp Rosina aCm Erika RN RN em6 Corrections: (The following items were deleted from the chart) 17:10 16:34 Doctor cp cp 17:10 16:34 Other Acute Care Facility cp cp 17:42 17:10 Doctor cp eb 19:53 17:[address] Dr[address] Yam[address] Gaona [facility] eb em6
--- NOTE | 2022-03-11 16:35 | ER ---
Nurse's Notes [facility] Name: Evelin Rojas Age: 76 yrs Sex: Female : 1945 Arrival Date: 03/11/2022 Time: 14:36 Bed 26 Private MD: Diagnosis: Bradycardia, unspecified-symptomatic;Dizziness and giddiness;Shortness of breath Presentation: 03/11 14:40 Acuity: NHI 3 em6 14:40 Chief complaint: EMS states: "patient complains of shortness of breath and dizziness em6 that started yesterday. she reports falling 2 days ago. but lose of conscious no blood thinners. normal vital sighs. history of DM". Coronavirus screen: Client denies travel out of the [place] in the last 14 days. Ebola Screen: Patient negative for fever greater than or equal to 101.5 degrees Fahrenheit, and additional compatible Ebola Virus Disease symptoms. Initial Sepsis Screen: Does the patient meet any 2 criteria? No. Patient's initial sepsis screen is negative. Does the patient have a suspected source of infection? No. Patient's initial sepsis screen is negative. Risk Assessment: Do you want to hurt yourself or someone else? Patient reports no desire to harm self or others. Onset of symptoms was March 10, 2022. 14:40 Method Of Arrival: EMS: [facility] em6 Triage Assessment: 14:40 General: Appears uncomfortable, Behavior is cooperative. Respiratory: Reports shortness em6 of breath Onset: The symptoms/episode began/occurred 03/10/22, the patient has mild shortness of breath. Historical: - Allergies: 15:56 Floxin; em6 - Home Meds: 15:56 Alprazolam Oral [Active]; Aspirin Oral [Active]; atorvastatin Oral [Active]; duloxetine em6 Oral [Active]; gabapentin Oral [Active]; Hydrochlorothiazide Oral [Active]; levothyroxine oral [Active]; Metformin Oral [Active]; montelukast Oral [Active]; - PMHx: 15:56 Anxiety; diabetes mellitus; Hypercholesterolemia; Hypothyroidism; neuropathy; em6 - Immunization history:: Adult Immunizations unknown. - Social history:: Smoking status: unknown. Screenin:40 Abuse screen: Denies threats or abuse. Nutritional screening: No deficits noted. em6 Tuberculosis screening: No symptoms or risk factors identified. Fall Risk Fall in past 12 months (25 points). No secondary diagnosis (0 pts). IV access (20 points). Ambulatory Aid- None/Bed Rest/Nurse Assist (0 pts). Gait- Weak (10 pts.). Mental Status- Oriented to own ability (0 pts). Total Lucero Fall Scale indicates High Risk Score (45 or more points). Fall prevention measures have been instituted. Side Rails Up X 2 Placed Close to Nursing Station Frequent Obs/Assessments Occuring As available patient and family educated on Fall Prevention Program and Strategies. Assessment: 14:40 General: Appears uncomfortable, Behavior is cooperative. Pain: Denies pain. Neuro: em6 Level of Consciousness is awake, alert, obeys commands, Oriented to person, place, time, situation. Cardiovascular: Reports lightheadedness, shortness of breath, Denies chest pain, Rhythm is sinus bradycardia. Respiratory: Airway is patent Respiratory effort is even, unlabored, Respiratory pattern is regular, symmetrical, Breath sounds are clear bilaterally. GI: Abdomen is non-distended, Abd is soft and non tender X 4 quads. : No signs and/or symptoms were reported regarding the genitourinary system. EENT: No signs and/or symptoms were reported regarding the EENT system. Derm: No signs and/or symptoms reported regarding the dermatologic system. Musculoskeletal: Circulation, motion, and sensation intact. 15:50 Reassessment: Patient appears in no apparent distress at this time. No changes from em6 previously documented assessment. Patient and/or family updated on plan of care and expected duration. Pain level reassessed. Patient is alert, oriented x 3, equal unlabored respirations, skin warm/dry/pink. 16:00 Reassessment: notified the provider that the patients heart rate drop to 32 and when em6 she feels dizzy her face flushes and has a stare look. patient is alert and oriented x 3. no new orders given. 17:00 Reassessment: Patient appears in no apparent distress at this time. Patient and/or em6 family updated on plan of care and expected duration. Pain level reassessed. Patient is alert, oriented x 3, equal unlabored respirations, skin warm/dry/pink. patient has not have any dizzy episodes. family at bed side and provider at bedside giving an update. 18:00 Reassessment: Patient appears in no apparent distress at this time. No changes from em6 previously documented assessment. Patient and/or family updated on plan of care and expected duration. Pain level reassessed. Patient is alert, oriented x 3, equal unlabored respirations, skin warm/dry/pink. 19:00 Reassessment: Patient appears in no apparent distress at this time. No changes from em6 previously documented assessment. Patient and/or family updated on plan of care and expected duration. Pain level reassessed. Patient is alert, oriented x 3, equal unlabored respirations, skin warm/dry/pink. 19:32 Reassessment: gave report to sivakumar from [facility]. em6 Vital Signs: 14:40 BP 129 / 104; Pulse 48; Resp 19; Temp 98.7; Pulse Ox 100% on R/A; Weight 72.57 kg; em6 Height 5 ft. (152.40 cm); Pain 0/10; 16:01 BP 180 / 52; Pulse 46; Resp 16; Pulse Ox 100% ; em6 16:45 BP 169 / 46; Pulse 47; Resp 16; Pulse Ox 100% on R/A; em6 17:30 BP 179 / 137; Pulse 51; Resp 17; Pulse Ox 100% on R/A; em6 18:15 BP 163 / 77; Pulse 53; Resp 20; Pulse Ox 100% on R/A; em6 19:00 BP 162 / 82; Pulse 50; Resp 17; Pulse Ox 100% on R/A; em6 14:40 Body Mass Index 31.25 (72.57 kg, 152.40 cm) em6 ED Course: 14:36 Patient arrived in ED. ss 14:37 Marquis Nogueira PA is PHCP. cp 14:37 Marquis Paulino MD is Attending Physician. cp 14:40 Arm band placed on. em6 14:40 Bed in low position. Call light in reach. Side rails up X2. monitoring tech on. Pulse em6 ox on. NIBP on. Warm blanket given. 14:40 Maintain EMS IV. Dressing intact. Good blood return noted. Site clean \\T\\ dry. Gauge \\T\\ em 6 site: 20G left wrist . 14:57 Glendy Waldrop, RN is Primary Nurse. em6 15:36 CT Head C Spine In Process Unspecified. EDMS 15:56 Triage completed. em6 15:58 XRAY Chest (1 view) In Process Unspecified. EDMS 16:27 initiated a transfer with STEVEN Watters from the [facility]. eb 17:05 Urine Microscopic Only Sent. em6 17:05 SARS RAPID Sent. em6 17:10 administrative approval given by STEVEN Watters/ patient has been accepted to [facility] eb 14 T 1423/ Dr. Yamilet Gaona has accepted the patient in transfer/ report to be called to [phone]. 19:32 No provider procedures requiring assistance completed. em6 19:33 Patient transferred, IV remains in place. em6 Administered Medications: 16:43 Drug: NS 0.9% 500 ml Route: IV; Rate: calculated rate; Site: right antecubital; em6 19:30 Follow up: Response: No adverse reaction; IV Status: Completed infusion; IV Intake: em6 500ml 16:43 Drug: hydrALAZINE 5 mg Route: IVP; Site: right wrist; em6 17:10 Follow up: Response: No adverse reaction em6 Medication: 19:34 VIS not applicable for this client. em6 Intake: 19:30 IV: 500ml; Total: 500ml. em6 Outcome: 16:34 ER care complete, transfer ordered by . cp 19:32 Transferred by ground EMS to [facility]. em6 19:32 Condition: stable 19:32 Instructed on the need for transfer, Demonstrated understanding of instructions, follow-up care. 19:53 Patient left the ED. em6 Signatures: Dispatcher [employer] Daniella Diggs RN RN Marquis Walton PA PA cp Botello, Elizabeth eb Martinez, Erika, RN RN em6 Corrections: (The following items were deleted from the chart) 17:08 16:03 Reassessment: notified the provider that the patients heart rate drop to 32 and em6 when she feels dizzy her face flushes and has a stare look. patient is alert and oriented. no new orders given em6 03/12 00:16 11 20:30 Response: No adverse reaction; IV Status: Completed infusion; IV Intake: em6 500ml em6
[2022-03-11] MEDS ORDERED: NA CHLORIDE 0.9% 500 ML ONE (16:36)
[2022-03-11] MEDS ORDERED: HYDRALAZINE HCL 20 MG/ML VIAL ONE (16:36)
[2022-03-11 16:50] LABS: Urine Blood Negative (Negative); Urine Glucose Negative (Negative); Urine Protein 2+ (Negative)
[2022-03-11 17:11] LABS: SARS-CoV-2 Antigen Rapid Res Negative (Negative)
[2022-03-11 17:16] LABS: Urine Mucus Slight /HPF (None Seen); Urine RBC <5 /HPF (None Seen)
[2022-03-11 19:57] VITALS: O2SAT 100
[2022-03-11 20:03] VITALS: BP 162/82
[2022-03-11 20:12] VITALS: TEMP 97.3
--- NOTE | 2022-03-12 15:31 | EKG ---
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
== END 2022-03-11 19:53 | disposition short-term general hospital (02) ==
LOC: ER 14:34
DX: R00.1 Bradycardia, unspecified (principal); R42 Dizziness and giddiness; E11.9 Type 2 diabetes mellitus without complications; E03.9 Hypothyroidism, unspecified; Z20.822 Contact with and (suspected) exposure to COVID-19; Z88.8 Allergy status to other drugs, medicaments and biological substances
CPT/HCPCS: 96365; 93005; 85025; 80048; 36415; 83735; 85610; 80076; 84484; 83880; 70450; 72125; 71045; 96375; 99285; 96366; 87811; J0360; J7040; 81003; 81015